=== PATIENT | female | born 1940 | race Caucasian/White ===

== ENCOUNTER → 2016-08-17 | Outpatient (CLI) | payer MEDICARE, MEDICAID ==
[~2016-08-17] MED LIST: /CELE20CA PO; /ESOM40CA OR; /ROPI1TA OR; ALBU2TAB INH; ASPI325T OR; BACIDCA PO; BACITAB PO; BACITAB3 PO; CALC25TA PO; CALCCHW12 OR; CALCCHW19 PO; CARA1TAB2 PO; CHOL4PKT PO; CIPR500T4 PO; COLA100C PO; COLA50CA3 PO; COLACE PO; DEXLANSOPRAZOLE PO; DIARRHEA MED PO; DOCU10ELUD FT; DRISDOL PO; E-Z-GAS II EFFERVESCENT PACKET (SODIUM BICARB./CITRIC ACID/SIMETHICONE) As Ordered ONE; E-Z-HD 98% w/w 340GM SUSP BTL As Ordered ONE; E-Z-PAQUE 96% w/w SUSP 176GM BTL As Ordered ONE; FERR150C PO; FERR32TA PO; FLAG500T PO; FLON0.05; GABA600T3 OR; GABAPOW41 PO; IMIT50TA PO; IMOD2TAB14 PO; LOPE-3 PO; METAMUCIL PO; METAPKT PO; METO10TA2 OR; MIRA255PW PO; MOM30SS PO; MULTLIQ7 PO; MV-OCAP PO; NEUR100C OR; NEUR300C PO; NIFEREX PO; OXYC5TAB2 PO; PERC5TAB6 PO; PERC5TAB8 OR; PERCOCET PO; PHEN100C PO; PRED1SUS6 OS; PROA1AER INH; PROAAER INH; PROPOFOL 200 MG/20 ML VIAL As Ordered ONE; PROT20TA11 PO; RECL5INJ2 IV; REGLAN PO; SALI0.653; SENN8.6C PO; SENN8.6T76 PO; SENNSYP PO; SING10TA32 PO; SINGULAIR PO; SINGULAR PO; SYNT112T2 PO; SYNT75TA OR; SYNTHROID PO; TIZA2CAP3 PO; TYLE325T5 PO; TYLE650T30 PO; VESI10TA PO; VICO5TAB PO; VITA200016 PO; VITA500C10 PO; ZOCOR PO; [UNRECOGNIZED DRUG - CODE] OD; [UNRECOGNIZED DRUG - CODE] OS; [UNRECOGNIZED DRUG - OTHER] PO; [UNRECOGNIZED DRUG - OTHER] PO; metamucil PO
--- NOTE | 2016-08-17 17:47 | REP ---
UPPER GI, SINGLE CONTRAST: The procedure was performed under the direct supervision of Dr. Emery. The images were reviewed with Dr. Emery. The cmm inspector film shows no organomegaly or pathological masses. The intestinal gas pattern is nonspecific. There are pedicle screws and arch bars bilaterally from L3 to L5. There are bowel sutures noted in the epigastric region consistent with the patient's history of gastric ulcer repair. There are also bowel sutures noted in the pelvis consistent with the patient's history of colon resection. Liquid barium was given in the erect and prone oblique positions. The oral and pharyngeal stages of deglutition are unremarkable. During esophageal transport there are tertiary waves demonstrated. There is no esophagitis, stricture, mucosal ring or hiatal hernia. Gastroesophageal reflux is not demonstrated on this examination. Within the stomach, there thickened folds within the body of the stomach. A gastric ulcer cannot be ruled out. Recommend endoscopy for further evaluation. There are postsurgical changes representing a likely Billroth II surgery. There is free flow of contrast through the anastomosis. The visualized portion of the proximal small bowel appears normal in course and caliber. IMPRESSION: 1. Esophageal dysmotility. 2. There are thickened folds in the body of the stomach. A gastric ulcer cannot be ruled out. Recommend endoscopy for further evaluation. 4 minutes and 5 seconds of fluoroscopy time was utilized for this procedure. Reviewed by ELYSE Hackett 08/18/2016 04:38 PEdited and Signed by Eusebio Emery MD 08/18/2016 04:51 P
== END ==
LOC: M RAD 08:32
PROVIDERS: ATTEND Surgery
DX: R10.13 Epigastric pain (principal); K21.9 Gastro-esophageal reflux disease without esophagitis

== ENCOUNTER → 2016-08-25 | Outpatient (CLI) | payer MEDICARE, MEDICAID ==
[~2016-08-25] MED LIST changes: +ASPI1TAB PO; +ATOR40TA PO; -E-Z-GAS II EFFERVESCENT PACKET (SODIUM BICARB./CITRIC ACID/SIMETHICONE) As Ordered ONE; -E-Z-HD 98% w/w 340GM SUSP BTL As Ordered ONE; -E-Z-PAQUE 96% w/w SUSP 176GM BTL As Ordered ONE; +GABA-283 PO; +LIDOCAINE 2% INJ 100 MG/5 ML SDV (FOR ANES.) As Ordered ONE; +LR 1,000 ML IV SCH; +METO12TA PO; +MYRB50TA PO; +OXYCO5TA PO; +OYST1TAB8 PO; +PAME25CA PO; +RANI150T PO; +STOO100C PO; +VALS1TAB49 PO; +VITA20008 PO
--- NOTE | 2016-08-25 10:22 | ROOR ---
Patient Name: Bri Ordonez Procedure Date: 08/25/2016 10:07 AM Date of : 1940 Age: 76 Room: [facility] Gender: Female Note Status: Finalized Procedure: Upper GI endoscopy Indications: Epigastric abdominal pain, Dysphagia Providers: Arturo Cid Jr, MD Referring MD: Jim Arizmendi MD Requesting Provider: Medicines: Propofol per Anesthesia Complications: No immediate complications. Procedure: Pre-Anesthesia Assessment: - Prior to the procedure, a History and Physical was performed, and patient medications and allergies were reviewed. The patient is competent. The risks and benefits of the procedure and the sedation options and risks were discussed with the patient. All questions were answered and informed consent was obtained. Patient identification and proposed procedure were verified by the physician and the nurse in the pre-procedure area and in the procedure room. Mental Status Examination: alert and oriented. Airway Examination: normal oropharyngeal airway and neck mobility. Respiratory Examination: clear to auscultation. CV Examination: normal. ASA Grade Assessment: III - A patient with severe systemic disease. After reviewing the risks and benefits, the patient was deemed in satisfactory condition to undergo the procedure. The anesthesia plan was to use moderate sedation / analgesia (conscious sedation). Immediately prior to administration of medications, the patient was re-assessed for adequacy to receive sedatives. The heart rate, respiratory rate, oxygen saturations, blood pressure, adequacy of pulmonary ventilation, and response to care were monitored throughout the procedure. The physical status of the patient was re-assessed after the procedure. The Endoscope was introduced through the mouth, and advanced to the afferent and efferent jejunal loops. The upper GI endoscopy was accomplished without difficulty. The patient tolerated the procedure well. Findings: The upper third of the esophagus, middle third of the esophagus and lower third of the esophagus were normal. A small hiatal hernia was present. Diffuse severe inflammation characterized by congestion (edema), erythema, friability, granularity and mucus was found in the cardia, in the gastric fundus, in the gastric body, on the greater curvature of the stomach and on the lesser curvature of the stomach. Biopsies were taken with a cold forceps for histology. The examined jejunum was normal. The patient had a Billroth II Gastrojejenostomy Impression: - Normal upper third of esophagus, middle third of esophagus and lower third of esophagus. - Small hiatal hernia. - Bile gastritis. Biopsied. - Normal examined jejunum. Recommendation: - Return to my office in 1 week. Arturo Cid MD Arturo Cid Jr, MD 08/25/2016 10:21:43 AM This report has been signed electronically. Number of Addenda: 0 Note Initiated On: 08/25/2016 10:07 AM Estimated Blood Loss: Estimated blood loss: none.
[2016-08-25 10:46] VITALS: BP 117/78
== END ==
LOC: M OPP 09:08
PROVIDERS: ATTEND Surgery
DX: R10.13 Epigastric pain (principal); K29.60 Other gastritis without bleeding; K44.9 Diaphragmatic hernia without obstruction or gangrene; R13.10 Dysphagia, unspecified; E78.5 Hyperlipidemia, unspecified; K21.9 Gastro-esophageal reflux disease without esophagitis; I25.2 Old myocardial infarction; E03.9 Hypothyroidism, unspecified; Z79.82 Long term (current) use of aspirin; Z79.51 Long term (current) use of inhaled steroids; Z88.1 Allergy status to other antibiotic agents; Z88.0 Allergy status to penicillin; Z79.899 Other long term (current) drug therapy

== ENCOUNTER → 2016-09-20 | Outpatient (RCR) | payer MEDICARE, MEDICAID ==
[~2016-09-20] MED LIST changes: -LIDOCAINE 2% INJ 100 MG/5 ML SDV (FOR ANES.) As Ordered ONE; -LR 1,000 ML IV SCH; -PROPOFOL 200 MG/20 ML VIAL As Ordered ONE
== END ==
LOC: M PT 09:02
PROVIDERS: ATTEND Physician Assistant Surgical
DX: Z51.89 Encounter for other specified aftercare (principal); M16.12 Unilateral primary osteoarthritis, left hip
CPT/HCPCS: 97162; G8978; G8979

== ENCOUNTER → 2016-09-30 | Outpatient (CLI) | payer MEDICARE, MEDICAID ==
[2016-09-30 08:03] LABS: MEAN CORPUSCULAR HEMOGLOBIN 32.1 pg (27.0-33.0); MEAN CORPUSCULAR HGB CONC 32.4 g/dl (32.0-36.5); RED CELL DISTRIBUTION WIDTH 12.7 % (11.5-14.5); RETIC HEMOGLOBIN CONTENT CHr 32.8 PG (24-36); RETICULOCYTE % ADVIA2120 2.2 % (0.5-1.5); WHITE BLOOD COUNT 3.9 K/mm3 (4.0-10.0)
[2016-09-30 08:51] LABS: ALBUMIN 3.5 GM/DL (3.2-5.2); ALKALINE PHOSPHATASE 194 U/L (45-117); ALT/SGPT 28 U/L (12-78); ANION GAP 8 MEQ/L (8-16); AST/SGOT 22 U/L (15-37); BILIRUBIN,TOTAL 0.3 MG/DL (0.2-1.0); BLOOD UREA NITROGEN 11 MG/DL (7-18); CALCIUM LEVEL 8.6 MG/DL (8.8-10.2); CARBON DIOXIDE LEVEL 30 MEQ/L (21-32); CHLORIDE LEVEL 108 MEQ/L (98-107); CHOLESTEROL LEVEL 133 MG/DL (<200); CREATININE FOR GFR 0.76 MG/DL (0.55-1.02); FERRITIN 10 NG/ML (8-252); GLOMERULAR FILTRATION RATE > 60.0 (>39); GLUCOSE, FASTING 92 MG/DL (83-110); PERCENT SATURATION 20.7 % (13.2-37.4); POTASSIUM SERUM 4.3 MEQ/L (3.5-5.1); SODIUM LEVEL 146 MEQ/L (136-145); TOTAL IRON BINDING CAPACITY 328 UG/DL (250-450); TOTAL PROTEIN 6.2 GM/DL (6.4-8.2); TRIGLYCERIDES LEVEL 139 MG/DL (<150)
== END ==
LOC: M LAB 07:13
PROVIDERS: ATTEND Family Medicine
DX: R25.2 Cramp and spasm (principal); D50.0 Iron deficiency anemia secondary to blood loss (chronic); E03.9 Hypothyroidism, unspecified; E78.2 Mixed hyperlipidemia

== ENCOUNTER → 2016-10-11 | Outpatient (REF) | payer MEDICARE, MEDICAID ==
[~2016-10-11] MED LIST changes: -COLA100C PO; +COLA100C3 PO
== END ==
LOC: M SMT 12:55
PROVIDERS: ATTEND Urology
DX: N39.0 Urinary tract infection, site not specified (principal)

== ENCOUNTER 2016-10-12 08:29 | Outpatient (RCR) | payer MEDICARE, MEDICAID ==
[~2016-10-12 08:29] MED LIST changes: +COLA100C PO; -COLA100C3 PO
== END 2016-10-13 12:45 | disposition home or self-care (01) ==
LOC: M PT 08:29
PROVIDERS: ATTEND Physician Assistant Surgical
DX: Z51.89 Encounter for other specified aftercare (principal); M19.90 Unspecified osteoarthritis, unspecified site
CPT/HCPCS: 97110; 97140; G8978; G8979; G8980

== ENCOUNTER 2016-11-01 16:47 | Emergency (ER) | payer MEDICARE, MEDICAID ==
[~2016-11-01] VITALS: Ht 154.9 cm; Wt 55.8 kg
[~2016-11-01 16:47] MED LIST changes: -COLA100C PO; +COLA100C3 PO
--- NOTE | 2016-11-01 18:39 | REP ---
Portable chest, single AP view, the patient upright: Comparisons are the portable chest dated 07/19/2069, PA and lateral views of the chest dated 10/16/2015. The lung henry are clear. Cardiac size is normal. The inga and mediastinum are unchanged. There is thoracic scoliosis convex left at the thoracolumbar junction, unchanged. There is a stabilization plate in the cervical spine, unchanged. There is surgical fusion of the lumbar spine, unchanged. Impression: There are no acute cardiopulmonary findings. Signed by Naveed Segura MD 11/01/2016 06:30 P
[2016-11-01 18:44] LABS: BASO % 0.4 % (0.0-1.0); EOS # 0.2 K/mm3 (0.0-0.50); EOS % 2.1 % (0.0-3.0); LARGE UNSTAINED CELL # 0.1 K/mm3 (0.0-0.4); LARGE UNSTAINED CELL % 1.9 % (0.0-4.0); LYMPH # 1.3 K/mm3 (1.5-4.5); LYMPH % 17.6 % (24.0-44.0); MEAN CORPUSCULAR HGB CONC 32.5 g/dl (32.0-36.5); MEAN CORPUSCULAR VOLUME 98.6 fl (80.0-96.0); MONO # 0.4 K/mm3 (0.0-0.8); MONO % 5.7 % (0.0-5.0); NEUTROPHILS # 5.4 K/mm3 (1.8-7.7); NEUTROPHILS % 72.2 % (36.0-66.0); PLATELET COUNT, AUTOMATED 207 k/mm3 (150-450); RED CELL DISTRIBUTION WIDTH 12.9 % (11.5-14.5); WHITE BLOOD COUNT 7.5 K/mm3 (4.0-10.0)
[2016-11-01] MEDS ORDERED: ASPIRIN 81 MG CHEW TABLET PO ONE (18:45)
[2016-11-01 19:09] LABS: ANION GAP 6 MEQ/L (8-16); BLOOD UREA NITROGEN 18 MG/DL (7-18); CALCIUM LEVEL 8.8 MG/DL (8.8-10.2); CARBON DIOXIDE LEVEL 30 MEQ/L (21-32); CHLORIDE LEVEL 104 MEQ/L (98-107); CREATININE FOR GFR 0.73 MG/DL (0.55-1.02); GLOMERULAR FILTRATION RATE > 60.0 (>39); GLUCOSE, FASTING 102 MG/DL (83-110); POTASSIUM SERUM 4.2 MEQ/L (3.5-5.1); SODIUM LEVEL 140 MEQ/L (136-145)
[2016-11-01] MEDS ORDERED: ISOVUE-370 76% 100ML VIAL (Q9967) As Ordered ONE (19:14)
--- NOTE | 2016-11-01 20:00 | REPUSA ---
CT angiogram of the chest Clinical statement: Chest pain and shortness of breath. Technique: Multiple axial CT images were obtained from the thoracic inlet through the upper abdomen a fter a bolus administration of nonionic intravenous contrast. Coronal and sagittal reconstructions we re also obtained. No comparison is available. Findings: The pulmonary arteries are well-opacified with contrast, with no intraluminal filling defec ts to suggest embolism. The thoracic aorta is unremarkable. Thyroid gland is within normal limits. Th ere is no thoracic lymphadenopathy. There are no pericardial or pleural effusions. The lungs are markus r. Limited imaging of the upper abdomen demonstrate a large simple left renal cyst. There are no susp icious osseous lesions. Impression: Unremarkable CT examination of the chest. No evidence of pulmonary embolism.
[2016-11-01 23:41] VITALS: BP 122/63
--- NOTE | 2016-11-02 14:03 | ECGEPIP ---
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
--- NOTE | 2016-11-02 14:03 | ECGEPIP ---
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
== END 2016-11-02 00:16 | disposition home or self-care (01) ==
LOC: EDBD 16:47 → M ED 19:21
DX: R07.9 Chest pain, unspecified (principal); R06.02 Shortness of breath; I25.2 Old myocardial infarction; K21.9 Gastro-esophageal reflux disease without esophagitis; M81.0 Age-related osteoporosis without current pathological fracture
CPT/HCPCS: 36415; 71010; 71275; 80048; 82550; 82553; 83880; 84484; 85025; 93005; 93041; 94760; 99285; Q9967

== ENCOUNTER → 2016-11-10 | Outpatient (REF) | payer MEDICARE | LOC: M SMT 16:54 | PROVIDERS: ATTEND Urology | DX: R30.0 Dysuria (principal) ==

== ENCOUNTER → 2016-11-11 | Outpatient (REF) | payer MEDICARE | LOC: M SMT 16:50 | PROVIDERS: ATTEND Urology | DX: N39.0 Urinary tract infection, site not specified (principal) ==

== ENCOUNTER 2016-11-17 10:27 | Outpatient (RCR) | payer MEDICARE | END 2016-11-20 | LOC: M PT 10:27 | PROVIDERS: ATTEND Orthopaedic Surgery | DX: M17.12 Unilateral primary osteoarthritis, left knee (principal) | CPT/HCPCS: 97110; 97140; 97162; G8978; G8979 ==

== ENCOUNTER 2016-11-29 10:45 | Outpatient (RCR) | payer MEDICARE | END 2016-11-29 14:46 | disposition home or self-care (01) | LOC: M PT 10:45 | PROVIDERS: ATTEND Orthopaedic Surgery | DX: Z51.89 Encounter for other specified aftercare (principal); M16.12 Unilateral primary osteoarthritis, left hip | CPT/HCPCS: 97110; G8978; G8979; G8980 ==

== ENCOUNTER → 2016-12-01 | Outpatient (REF) | payer MEDICARE, MEDICAID ==
[2016-12-01 13:47] LABS: BASO % 0.4 % (0.0-1.0); EOS # 0.2 K/mm3 (0.0-0.50); EOS % 2.4 % (0.0-3.0); LARGE UNSTAINED CELL # 0.2 K/mm3 (0.0-0.4); LARGE UNSTAINED CELL % 2.4 % (0.0-4.0); LYMPH # 1.3 K/mm3 (1.5-4.5); LYMPH % 19.6 % (24.0-44.0); MEAN CORPUSCULAR HEMOGLOBIN 33.3 pg (27.0-33.0); MEAN CORPUSCULAR HGB CONC 32.6 g/dl (32.0-36.5); MEAN CORPUSCULAR VOLUME 101.9 fl (80.0-96.0); MONO # 0.5 K/mm3 (0.0-0.8); MONO % 7.5 % (0.0-5.0); NEUTROPHILS # 4.4 K/mm3 (1.8-7.7); NEUTROPHILS % 67.7 % (36.0-66.0); PLATELET COUNT, AUTOMATED 211 k/mm3 (150-450); RED CELL DISTRIBUTION WIDTH 13.2 % (11.5-14.5); WHITE BLOOD COUNT 6.6 K/mm3 (4.0-10.0)
[2016-12-01 13:54] LABS: ANION GAP 8 MEQ/L (8-16); BLOOD UREA NITROGEN 16 MG/DL (7-18); CALCIUM LEVEL 8.2 MG/DL (8.8-10.2); CARBON DIOXIDE LEVEL 26 MEQ/L (21-32); CHLORIDE LEVEL 109 MEQ/L (98-107); CREATININE FOR GFR 0.77 MG/DL (0.55-1.02); GLOMERULAR FILTRATION RATE > 60.0 (>39); GLUCOSE, FASTING 114 MG/DL (83-110); SODIUM LEVEL 143 MEQ/L (136-145)
[2016-12-01 14:37] LABS: ERYTHROCYTE SEDIMENTATION RATE 8 mm/hr (0-30)
== END ==
LOC: M SFHCPLAZ 10:53
PROVIDERS: ATTEND Nurse Practitioner Family
DX: R51 Headache (principal)
CPT/HCPCS: 80048; 85025; 85652; 86140; G0463

== ENCOUNTER 2016-12-29 01:16 | Emergency (ER) | payer MEDICARE, MEDICAID ==
[~2016-12-29] VITALS: Ht 152.4 cm; Wt 59.0 kg
[2016-12-29 01:31] VITALS: BP 118/66
[2016-12-29] MEDS ORDERED: ONDANSETRON 4MG/2ML VIAL (J2405) IV ONE (03:00)
[2016-12-29] MEDS ORDERED: NS 1,000 ML IV ONE (03:00)
[2016-12-29 03:25] LABS: BASO % 0.2 % (0.0-1.0); EOS # 0.1 K/mm3 (0.0-0.50); EOS % 0.6 % (0.0-3.0); LARGE UNSTAINED CELL # 0.1 K/mm3 (0.0-0.4); LARGE UNSTAINED CELL % 0.8 % (0.0-4.0); LYMPH # 0.6 K/mm3 (1.5-4.5); LYMPH % 5.6 % (24.0-44.0); MEAN CORPUSCULAR HEMOGLOBIN 32.3 pg (27.0-33.0); MEAN CORPUSCULAR HGB CONC 32.9 g/dl (32.0-36.5); MEAN CORPUSCULAR VOLUME 98.4 fl (80.0-96.0); MONO # 0.5 K/mm3 (0.0-0.8); MONO % 5.3 % (0.0-5.0); NEUTROPHILS # 8.7 K/mm3 (1.8-7.7); NEUTROPHILS % 87.5 % (36.0-66.0); PLATELET COUNT, AUTOMATED 214 k/mm3 (150-450); RED CELL DISTRIBUTION WIDTH 13.2 % (11.5-14.5)
[2016-12-29] MEDS: MORPHINE 2 MG/ML 1ML SYRINGE IV PRN ×4 (03:29→05:30)
[2016-12-29 03:58] LABS: ALBUMIN 3.4 GM/DL (3.2-5.2); ALBUMIN/GLOBULIN RATIO 1.06 (1.00-1.93); ALKALINE PHOSPHATASE 194 U/L (45-117); ALT/SGPT 40 U/L (12-78); ANION GAP 7 MEQ/L (8-16); AST/SGOT 30 U/L (15-37); BILIRUBIN,DIRECT < 0.1 MG/DL (0.0-0.2); BILIRUBIN,TOTAL 0.3 MG/DL (0.2-1.0); BLOOD UREA NITROGEN 15 MG/DL (7-18); CALCIUM LEVEL 8.2 MG/DL (8.8-10.2); CARBON DIOXIDE LEVEL 27 MEQ/L (21-32); CHLORIDE LEVEL 109 MEQ/L (98-107); CREATININE FOR GFR 0.84 MG/DL (0.55-1.02); GLOMERULAR FILTRATION RATE > 60.0 (>39); GLUCOSE, FASTING 118 MG/DL (83-110); POTASSIUM SERUM 3.8 MEQ/L (3.5-5.1); SODIUM LEVEL 143 MEQ/L (136-145); TOTAL PROTEIN 6.6 GM/DL (6.4-8.2)
[2016-12-29] MEDS ORDERED: ISOVUE-370 76% 100ML VIAL (Q9967) As Ordered ONE (04:30)
[2016-12-29] MEDS ORDERED: GI COCKTAIL 50ML BTL(HYOSCYAMINE/MAALOX/LIDOCAINE VISCOUS)(1:3:1) PO ONE (04:45)
--- NOTE | 2016-12-29 05:08 | REP ---
Clinical: Abdominal pain. Technique: Axial contrast enhanced images from the lung bases to the pubic symphysis using 100 ml Isovue 370 intravenous contrast material with coronal and sagittal re-formations. Comparison: 07/01/2016, 06/18/2014. Findings: Lung bases demonstrate chronic in age-related interstitial changes and minimal posterior basilar dependent changes. Visualized portions of the heart and pericardium suggest mild cardiomegaly. Liver, spleen, pancreas, and bilateral adrenal glands are normal. Kidneys demonstrate stable bilateral cysts measuring up to 1.1 cm in the mid pole cortex of the right kidney and 7.4 cm in the posterior upper pole left kidney. No associated hydroureteronephrosis or nephrolithiasis. The enteric system demonstrates diffuse diverticulosis without evidence for acute obstruction or inflammatory process. However mild enteritis cannot be excluded along with few mildly prominent central mesenteric lymph nodes measuring up to 12 mm. There is evidence for partial sigmoid resection within the pelvis along with evidence for prior cholecystectomy and hysterectomy. The bladder is unremarkable. No ascites. No retroperitoneal adenopathy. Vasculature demonstrates atherosclerotic changes without aneurysm or dissection. Musculoskeletal structures demonstrate postsurgical changes involving the lumbar spine. Impression: 1. Very subtle enhancement to the small bowel with few prominent central mesenteric lymph nodes may reflect enteritis. 2. Diverticulosis without acute diverticulitis. 3. Stable renal cysts including 7.4 cm left renal cyst. Signed by Swapnil Ayala MD 12/29/2016 04:59 A
[2016-12-29] MEDS ORDERED: PANTOPRAZOLE 40MG INJ (PROTONIX) (C9113) IV ONE (05:30)
== END 2016-12-29 06:28 | disposition home or self-care (01) ==
LOC: EDBD 01:16 → M ED 03:05
DX: K21.9 Gastro-esophageal reflux disease without esophagitis (principal); K57.90 Diverticulosis of intestine, part unspecified, without perforation or abscess without bleeding; N28.1 Cyst of kidney, acquired; I51.9 Heart disease, unspecified; Z79.82 Long term (current) use of aspirin; Z79.899 Other long term (current) drug therapy; Z88.2 Allergy status to sulfonamides; Z88.1 Allergy status to other antibiotic agents; Z88.8 Allergy status to other drugs, medicaments and biological substances; Z91.09 Other allergy status, other than to drugs and biological substances
CPT/HCPCS: 74177; 80048; 80076; 82550; 82553; 83690; 84484; 85025; 93041; 96374; 96375; 99284; C9113; J2405; Q9967

== ENCOUNTER → 2017-01-04 | Outpatient (REF) | payer MEDICARE, MEDICAID ==
[~2017-01-04] MED LIST changes: +ALLE180T33 PO; +ASTE0.15; +ATOR1TAB21 PO; -ATOR40TA PO; +ATOR40TA75 PO; -BACITAB3 PO; +BETA2500 PO; +CARA1TAB6 PO; +CEFD300CAP FT; +CLAR1TAB2 PO; -COLA100C3 PO; +COLA100C5 PO; +DILA100C PO; +FIOR1CAP PO; +FLON1SPR; +GUAI100S7 PO; +LEVO500T3; +LEVOTAB10 PO; -METO12TA PO; +METO1TAB87 PO; +MUCI600T37 PO; +MULT1TAB10 PO; +NASA1SPR; +OMEP40CA2 PO; +PANT40TA2 PO; +PERC5TAB12 PO; -PERC5TAB6 PO; +PRED20TA; -PROA1AER INH; +PROAAER10 INH; -VESI10TA PO; +VESI10TA2 PO
[2017-01-04 12:19] LABS: ANION GAP 10 MEQ/L (8-16); BLOOD UREA NITROGEN 14 MG/DL (7-18); CARBON DIOXIDE LEVEL 27 MEQ/L (21-32); CHLORIDE LEVEL 103 MEQ/L (98-107); GLOMERULAR FILTRATION RATE > 60.0 (>39); GLUCOSE, FASTING 86 MG/DL (83-110); POTASSIUM SERUM 4.5 MEQ/L (3.5-5.1); SODIUM LEVEL 140 MEQ/L (136-145)
[2017-01-04 12:24] LABS: MEAN CORPUSCULAR HEMOGLOBIN 32.9 pg (27.0-33.0); MEAN CORPUSCULAR HGB CONC 32.7 g/dl (32.0-36.5); MEAN CORPUSCULAR VOLUME 100.6 fl (80.0-96.0); RED CELL DISTRIBUTION WIDTH 12.8 % (11.5-14.5); WHITE BLOOD COUNT 6.1 K/mm3 (4.0-10.0)
== END ==
LOC: M SFHCPLAZ 08:04
PROVIDERS: ATTEND Family Medicine
DX: D50.0 Iron deficiency anemia secondary to blood loss (chronic) (principal); I25.2 Old myocardial infarction
CPT/HCPCS: 36415; 80048; 85027; G0463

== ENCOUNTER 2017-01-05 03:35 | Emergency (ER) | payer MEDICARE, MEDICAID ==
[~2017-01-05] VITALS: Ht 152.4 cm; Wt 58.0 kg
[~2017-01-05 03:35] MED LIST changes: -ALLE180T33 PO; -ASTE0.15; -ATOR1TAB21 PO; +ATOR40TA PO; -ATOR40TA75 PO; +BACITAB3 PO; -BETA2500 PO; -CARA1TAB6 PO; -CEFD300CAP FT; -CLAR1TAB2 PO; +COLA100C3 PO; -COLA100C5 PO; -DILA100C PO; -FIOR1CAP PO; -FLON1SPR; -GUAI100S7 PO; -LEVO500T3; -LEVOTAB10 PO; +METO12TA PO; -METO1TAB87 PO; -MUCI600T37 PO; -MULT1TAB10 PO; -NASA1SPR; -OMEP40CA2 PO; -PANT40TA2 PO; -PERC5TAB12 PO; +PERC5TAB6 PO; -PRED20TA; +PROA1AER INH; -PROAAER10 INH; +VESI10TA PO; -VESI10TA2 PO
[2017-01-05] MEDS ORDERED: GI COCKTAIL 50ML BTL(HYOSCYAMINE/MAALOX/LIDOCAINE VISCOUS)(1:3:1) PO ONE (05:00)
[2017-01-05] MEDS ORDERED: IPRATROPIUM 0.5MG/ALBUTEROL 2.5MG INH SOL UD 3ML (DUONEB)(J7620) NEB SCH (05:15)
[2017-01-05] MEDS ORDERED: dexameTHASONE 20 MG/5 ML VIAL (J1100) IV ONE (05:15)
[2017-01-05 05:51] VITALS: BP 111/66
--- NOTE | 2017-01-05 09:30 | ECGEPIP ---
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
== END 2017-01-05 06:05 | disposition home or self-care (01) ==
LOC: M ED 05:26
DX: K21.9 Gastro-esophageal reflux disease without esophagitis (principal); E03.9 Hypothyroidism, unspecified; M54.9 Dorsalgia, unspecified; D50.9 Iron deficiency anemia, unspecified; Z79.82 Long term (current) use of aspirin; Z79.899 Other long term (current) drug therapy; Z88.1 Allergy status to other antibiotic agents; Z88.2 Allergy status to sulfonamides; Z88.8 Allergy status to other drugs, medicaments and biological substances; Z91.89 Other specified personal risk factors, not elsewhere classified

== ENCOUNTER → 2017-01-17 | Outpatient (CLI) | payer MEDICARE, MEDICAID ==
[~2017-01-17] MED LIST changes: +ALLE180T33 PO; +ASTE0.15; +ATOR1TAB21 PO; -ATOR40TA PO; +ATOR40TA75 PO; -BACITAB3 PO; +BETA2500 PO; +CARA1TAB6 PO; +CEFD300CAP FT; +CLAR1TAB2 PO; -COLA100C3 PO; +COLA100C5 PO; +DILA100C PO; +FIOR1CAP PO; +FLON1SPR; +GUAI100S7 PO; +LEVO500T3; +LEVOTAB10 PO; -METO12TA PO; +METO1TAB87 PO; +MUCI600T37 PO; +MULT1TAB10 PO; +NASA1SPR; +OMEP40CA2 PO; +PANT40TA2 PO; +PERC5TAB12 PO; -PERC5TAB6 PO; +PRED20TA; -PROA1AER INH; +PROAAER10 INH; -VESI10TA PO; +VESI10TA2 PO
[2017-01-17 08:24] LABS: BASO % 0.6 % (0.0-1.0); EOS # 0.1 K/mm3 (0.0-0.50); EOS % 2.4 % (0.0-3.0); LARGE UNSTAINED CELL # 0.1 K/mm3 (0.0-0.4); LARGE UNSTAINED CELL % 2.3 % (0.0-4.0); LYMPH # 1.3 K/mm3 (1.5-4.5); LYMPH % 22.6 % (24.0-44.0); MEAN CORPUSCULAR HEMOGLOBIN 32.4 pg (27.0-33.0); MEAN CORPUSCULAR HGB CONC 32.7 g/dl (32.0-36.5); MONO # 0.4 K/mm3 (0.0-0.8); MONO % 7.3 % (0.0-5.0); NEUTROPHILS # 3.4 K/mm3 (1.8-7.7); NEUTROPHILS % 64.8 % (36.0-66.0); PLATELET COUNT, AUTOMATED 231 k/mm3 (150-450); WHITE BLOOD COUNT 5.2 K/mm3 (4.0-10.0)
[2017-01-17 08:28] LABS: URIC ACID 3.6 MG/DL (2.6-6.0)
[2017-01-17 09:43] LABS: ERYTHROCYTE SEDIMENTATION RATE 6 mm/hr (0-30)
[2017-01-22 00:06] LABS: Lyme Disease IgG/IgM Antibodie <0.91 ISR (0.00-0.90); Lyme Disease IgM Ab Quantitati <0.80 index (0.00-0.79)
== END ==
LOC: M LAB 07:22
PROVIDERS: ATTEND Physician Assistant Surgical
DX: M79.674 Pain in right toe(s) (principal)

== ENCOUNTER → 2017-01-26 | Outpatient (REF) | payer MEDICARE, MEDICAID ==
[2017-02-01 00:07] LABS: O+P EXAM Final report (.)
== END ==
LOC: M SFHCLACO 14:48
PROVIDERS: ATTEND Physician Assistant
DX: R19.5 Other fecal abnormalities (principal); Z86.19 Personal history of other infectious and parasitic diseases

== ENCOUNTER → 2017-02-16 | Outpatient (CLI) | payer MEDICARE, MEDICAID ==
[~2017-02-16] VITALS: Ht 152.4 cm; Wt 54.4 kg
[~2017-02-16] MED LIST changes: +NS 1,000 ML IV ONE; +PROPOFOL 200 MG/20 ML VIAL As Ordered ONE
--- NOTE | 2017-02-16 12:47 | ROOR ---
Patient Name: Bri Ordonez Procedure Date: 02/16/2017 12:27 PM Date of : 1940 Age: 76 Room: [facility] Gender: Female Note Status: Finalized Procedure: Colonoscopy Indications: Chronic diarrhea Providers: Arturo Cid Jr, MD Referring MD: Jim Arizmendi MD Requesting Provider: Medicines: Propofol per Anesthesia Complications: No immediate complications. Procedure: Pre-Anesthesia Assessment: - Prior to the procedure, a History and Physical was performed, and patient medications and allergies were reviewed. The patient is competent. The risks and benefits of the procedure and the sedation options and risks were discussed with the patient. All questions were answered and informed consent was obtained. Patient identification and proposed procedure were verified by the physician and the nurse in the pre-procedure area and in the procedure room. Mental Status Examination: alert and oriented. Airway Examination: normal oropharyngeal airway and neck mobility. Respiratory Examination: clear to auscultation. CV Examination: normal. ASA Grade Assessment: II - A patient with mild systemic disease. After reviewing the risks and benefits, the patient was deemed in satisfactory condition to undergo the procedure. The anesthesia plan was to use moderate sedation / analgesia (conscious sedation). Immediately prior to administration of medications, the patient was re-assessed for adequacy to receive sedatives. The heart rate, respiratory rate, oxygen saturations, blood pressure, adequacy of pulmonary ventilation, and response to care were monitored throughout the procedure. The physical status of the patient was re-assessed after the procedure. The Colonoscope was introduced through the anus and advanced to the cecum, identified by appendiceal orifice and ileocecal valve. The colonoscopy was performed without difficulty. The patient tolerated the procedure well. The quality of the bowel preparation was adequate and good. Findings: The perianal exam findings include non-thrombosed external hemorrhoids, non-thrombosed internal hemorrhoids, internal hemorrhoids that prolapse with straining, but spontaneously regress to the resting position (Grade II) and internal hemorrhoids that prolapse with straining, but require manual replacement into the anal canal (Grade III). Multiple small and large-mouthed diverticula were found in the sigmoid colon. A few small and large-mouthed diverticula were found in the descending colon, transverse colon and ascending colon. The rectum, recto-sigmoid colon, cecum, appendiceal orifice and ileocecal valve appeared normal. Biopsies for histology were taken with a cold forceps from the right colon, transverse colon, descending colon and sigmoid colon for evaluation of microscopic colitis. Impression: - Non-thrombosed external hemorrhoids, non-thrombosed internal hemorrhoids, internal hemorrhoids that prolapse with straining, but spontaneously regress to the resting position (Grade II) and internal hemorrhoids that prolapse with straining, but require manual replacement into the anal canal (Grade III) found on perianal exam. - Diverticulosis in the sigmoid colon. - Diverticulosis in the descending colon, in the transverse colon and in the ascending colon. - The rectum, recto-sigmoid colon, cecum, appendiceal orifice and ileocecal valve are normal. Biopsied. Recommendation: - Discharge patient to home (ambulatory). - Return to my office in 3 weeks. Arturo Cid MD Arturo Cid Jr, MD 02/16/2017 12:47:18 PM This report has been signed electronically. Number of Addenda: 0 Note Initiated On: 02/16/2017 12:27 PM Estimated Blood Loss: Estimated blood loss: none.
[2017-02-16 13:10] VITALS: BP 139/93
== END | disposition home or self-care (01) ==
LOC: M OPP 11:38
PROVIDERS: ATTEND Surgery
DX: R19.7 Diarrhea, unspecified (principal); K64.2 Third degree hemorrhoids; K64.1 Second degree hemorrhoids; K64.4 Residual hemorrhoidal skin tags; K57.30 Diverticulosis of large intestine without perforation or abscess without bleeding; I25.2 Old myocardial infarction; E03.9 Hypothyroidism, unspecified; E78.00 Pure hypercholesterolemia, unspecified; K21.9 Gastro-esophageal reflux disease without esophagitis; M19.90 Unspecified osteoarthritis, unspecified site; R12 Heartburn; K29.70 Gastritis, unspecified, without bleeding; G89.4 Chronic pain syndrome; M81.0 Age-related osteoporosis without current pathological fracture; M54.9 Dorsalgia, unspecified; J45.909 Unspecified asthma, uncomplicated; M25.60 Stiffness of unspecified joint, not elsewhere classified; Z86.73 Personal history of transient ischemic attack (TIA), and cerebral infarction without residual deficits; J44.9 Chronic obstructive pulmonary disease, unspecified; Z78.0 Asymptomatic menopausal state; R32 Unspecified urinary incontinence; I34.8 Other nonrheumatic mitral valve disorders; Z87.891 Personal history of nicotine dependence; Z88.8 Allergy status to other drugs, medicaments and biological substances; Z88.1 Allergy status to other antibiotic agents; Z88.2 Allergy status to sulfonamides; Z91.048 Other nonmedicinal substance allergy status; Z79.82 Long term (current) use of aspirin; Z79.899 Other long term (current) drug therapy

== ENCOUNTER 2017-02-21 12:15 | Emergency (ER) | payer MEDICARE, MEDICAID ==
[~2017-02-21 12:15] MED LIST changes: -ALLE180T33 PO; -CEFD300CAP FT; -CLAR1TAB2 PO; -FIOR1CAP PO; -GUAI100S7 PO; -LEVO500T3; -LEVOTAB10 PO; -MUCI600T37 PO; -NASA1SPR; -NS 1,000 ML IV ONE; -PANT40TA2 PO; -PRED20TA; -PROPOFOL 200 MG/20 ML VIAL As Ordered ONE
[2017-02-21] MEDS ORDERED: PROAAER10 INH (12:47)
[2017-02-21] MEDS ORDERED: ASPIRIN 81 MG CHEW TABLET PO ONE (13:00)
[2017-02-21 13:12] LABS: BASO % 0.4 % (0.0-1.0); EOS # 0.2 K/mm3 (0.0-0.50); EOS % 2.9 % (0.0-3.0); LARGE UNSTAINED CELL # 0.1 K/mm3 (0.0-0.4); LARGE UNSTAINED CELL % 1.8 % (0.0-4.0); LYMPH # 1.2 K/mm3 (1.5-4.5); LYMPH % 21.7 % (24.0-44.0); MEAN CORPUSCULAR HEMOGLOBIN 32.9 pg (27.0-33.0); MEAN CORPUSCULAR VOLUME 99.6 fl (80.0-96.0); MONO # 0.4 K/mm3 (0.0-0.8); MONO % 7.5 % (0.0-5.0); NEUTROPHILS # 3.5 K/mm3 (1.8-7.7); NEUTROPHILS % 65.8 % (36.0-66.0); PLATELET COUNT, AUTOMATED 209 k/mm3 (150-450); WHITE BLOOD COUNT 5.2 K/mm3 (4.0-10.0)
[2017-02-21 13:19] LABS: ALBUMIN 3.1 GM/DL (3.2-5.2); ALBUMIN/GLOBULIN RATIO 1.03 (1.00-1.93); ALKALINE PHOSPHATASE 168 U/L (45-117); ALT/SGPT 29 U/L (12-78); ANION GAP 9 MEQ/L (8-16); AST/SGOT 26 U/L (15-37); BILIRUBIN,DIRECT < 0.1 MG/DL (0.0-0.2); BILIRUBIN,TOTAL 0.1 MG/DL (0.2-1.0); BLOOD UREA NITROGEN 9 MG/DL (7-18); CALCIUM LEVEL 8.6 MG/DL (8.8-10.2); CARBON DIOXIDE LEVEL 27 MEQ/L (21-32); CHLORIDE LEVEL 109 MEQ/L (98-107); CREATININE FOR GFR 0.71 MG/DL (0.55-1.02); GLOMERULAR FILTRATION RATE > 60.0 (>39); GLUCOSE, FASTING 93 MG/DL (83-110); POTASSIUM SERUM 3.9 MEQ/L (3.5-5.1); SODIUM LEVEL 145 MEQ/L (136-145); TOTAL PROTEIN 6.1 GM/DL (6.4-8.2)
--- NOTE | 2017-02-21 14:41 | REP ---
CHEST PA AND LATERAL: 02/21/2017 COMPARISON: CTA chest and portable chest 11/01/2016, 07/19/2016. CLINICAL HISTORY: Chest pain. Lungs are adequately inflated. CP angles sharply defined. Some basilar fibrotic changes and apical pleuroparenchymal scarring on the right. S- shaped thoracolumbar scoliosis convex to the right in the upper thoracic spine, convex to the left at the thoracolumbar junction. Heart size is borderline. There is a tortuous ectatic aorta unchanged. Airway intact. No mediastinal or hilar mass. No dense consolidation or definite effusion. Bones demineralized. There are pedicle screws and arch bars in the lower lumbar spine. Right upper quadrant clips from cholecystectomy. IMPRESSION: 1. No gross cardiomegaly, edema, effusion or definite infiltrate. Some minor fibrotic changes are seen. Tortuous ectatic aorta unchanged. Bones demineralized. 2. S-shaped thoracolumbar scoliosis and prior cervical fusion with plate screw fixation and posterior lumbar fusion with pedicle screws. Signed by Dwayne Alvarez MD 02/21/2017 07:04 P
[2017-02-21 14:55] VITALS: BP 133/76
--- NOTE | 2017-02-22 13:56 | ECGEPIP ---
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
[2017-03-24] MEDS ORDERED: PANT40TA2 PO (14:32)
== END 2017-02-21 14:59 | disposition home or self-care (01) ==
LOC: EDBD 12:15 → M ED 12:15
DX: K20.9 Esophagitis, unspecified (principal); I51.9 Heart disease, unspecified; I10 Essential (primary) hypertension; E78.5 Hyperlipidemia, unspecified; E07.9 Disorder of thyroid, unspecified; G89.29 Other chronic pain; Z87.891 Personal history of nicotine dependence; Z79.82 Long term (current) use of aspirin; Z79.899 Other long term (current) drug therapy; Z88.1 Allergy status to other antibiotic agents; Z88.2 Allergy status to sulfonamides; Z88.8 Allergy status to other drugs, medicaments and biological substances; Z91.89 Other specified personal risk factors, not elsewhere classified

== ENCOUNTER → 2017-03-10 | Outpatient (CLI) | payer MEDICARE, MEDICAID ==
[~2017-03-10] MED LIST changes: +ALLE180T33 PO; +CEFD300CAP FT; +CLAR1TAB2 PO; +FIOR1CAP PO; +GUAI100S7 PO; +LEVO500T3; +LEVOTAB10 PO; +MUCI600T37 PO; +NASA1SPR; +PANT40TA2 PO; +PRED20TA
--- NOTE | 2017-03-10 19:38 | REP ---
Left shoulder series: Three views: History: Pain. Findings: The distal clavicle appears to have been resected. This is unchanged from the 08/14/2013 prior study. Glenohumeral and acromioclavicular joints are normally aligned. There is faintly calcific material in the periarticular soft tissues superior to the humeral head consistent with calcific tendonitis or bursitis. There is early glenohumeral osteoarthritic spurring. Some coracoid process spurring is also noted. Impression: Status post resection distal clavicle. Mild glenohumeral osteoarthritis. Periarticular soft tissue calcification. No acute bony abnormality. Signed by Eusebio Emery MD 03/10/2017 07:42 P
== END ==
LOC: M WUC 17:47
PROVIDERS: ATTEND Physician Assistant
DX: M25.512 Pain in left shoulder (principal)

== ENCOUNTER → 2017-03-15 | Outpatient (CLI) | payer MEDICARE, MEDICAID ==
[~2017-03-15] MED LIST changes: +E-Z-GAS II EFFERVESCENT PACKET (SODIUM BICARB./CITRIC ACID/SIMETHICONE) As Ordered ONE; +E-Z-HD 98% w/w 340GM SUSP BTL As Ordered ONE; +E-Z-PAQUE 96% w/w SUSP 176GM BTL As Ordered ONE
--- NOTE | 2017-03-15 21:21 | REP ---
ESOPHAGRAM: The procedure was performed by ELYSE Hernández under the direct supervision of Dr. Hdz. All imaging was reviewed with Dr. Hdz prior to dictation. The patient was able to ingest liquid barium and air in a quantity sufficient to produce a double contrast examination. The oral and pharyngeal stages of deglutition were within normal limits. Esophageal transport was prompt and efficient. There was no evidence of esophagitis, structure, or mucosal ring. A small hiatal hernia was noted. Tertiary contractions were also noted. IMPRESSION: There was a small hiatal hernia. There were also tertiary contractions. Fluoroscopy was 2 minutes and 15 seconds. Reviewed by ELYSE Burton 03/16/2017 11:15 AEdited and Signed by Naveed Hdz MD 03/16/2017 03:09 P
== END ==
LOC: M RAD 07:33
PROVIDERS: ATTEND Internal Medicine Gastroenterology
DX: R13.10 Dysphagia, unspecified (principal)

== ENCOUNTER → 2017-03-15 | Outpatient (CLI) | payer MEDICARE, MEDICAID ==
[~2017-03-15] MED LIST changes: -E-Z-GAS II EFFERVESCENT PACKET (SODIUM BICARB./CITRIC ACID/SIMETHICONE) As Ordered ONE; -E-Z-HD 98% w/w 340GM SUSP BTL As Ordered ONE; -E-Z-PAQUE 96% w/w SUSP 176GM BTL As Ordered ONE
[2017-03-15 08:27] LABS: ALBUMIN 3.4 GM/DL (3.2-5.2); ANION GAP 6 MEQ/L (8-16); BLOOD UREA NITROGEN 13 MG/DL (7-18); CALCIUM LEVEL 8.9 MG/DL (8.8-10.2); CARBON DIOXIDE LEVEL 30 MEQ/L (21-32); CHLORIDE LEVEL 109 MEQ/L (98-107); CREATININE FOR GFR 0.92 MG/DL (0.55-1.02); GLOMERULAR FILTRATION RATE > 60.0 (>39); GLUCOSE, FASTING 89 MG/DL (83-110); PHOSPHORUS LEVEL 3.6 MG/DL (2.5-4.9); POTASSIUM SERUM 4.6 MEQ/L (3.5-5.1); SODIUM LEVEL 145 MEQ/L (136-145)
== END ==
LOC: M LAB 07:13
PROVIDERS: ATTEND Family Medicine
DX: M81.0 Age-related osteoporosis without current pathological fracture (principal)

== ENCOUNTER 2017-03-23 08:08 | Outpatient (CLI) | payer MEDICARE, MEDICAID ==
[~2017-03-23] VITALS: Ht 152.4 cm; Wt 58.8 kg
[~2017-03-23 08:08] MED LIST changes: -ALLE180T33 PO; -CEFD300CAP FT; -CLAR1TAB2 PO; -FIOR1CAP PO; -GUAI100S7 PO; -LEVO500T3; -LEVOTAB10 PO; -MUCI600T37 PO; -NASA1SPR; -PANT40TA2 PO; -PRED20TA
[2017-03-23] MEDS ORDERED: ZOLEDRONIC ACID 5 MG in APPROPRIATE DILUENT 1 EA IV ONE (08:15)
[2017-03-24] MEDS ORDERED: PANT40TA2 PO (14:32)
== END 2017-03-23 09:45 | disposition home or self-care (01) ==
LOC: M INFU 08:08
PROVIDERS: ATTEND Family Medicine
DX: M81.0 Age-related osteoporosis without current pathological fracture (principal); Z78.0 Asymptomatic menopausal state; Z88.8 Allergy status to other drugs, medicaments and biological substances; Z88.1 Allergy status to other antibiotic agents; Z88.2 Allergy status to sulfonamides; Z96.652 Presence of left artificial knee joint; Z72.0 Tobacco use
CPT/HCPCS: 96365; J3489

== ENCOUNTER → 2017-04-05 | Outpatient (REF) | payer MEDICARE, MEDICAID ==
[~2017-04-05] MED LIST changes: +ALLE180T33 PO; +CEFD300CAP FT; +CLAR1TAB2 PO; +FIOR1CAP PO; +GUAI100S7 PO; +LEVO500T3; +LEVOTAB10 PO; +MUCI600T37 PO; +NASA1SPR; +PANT40TA2 PO; +PRED20TA
== END ==
LOC: M SFHCPLAZ 15:00
PROVIDERS: ATTEND Nurse Practitioner Family
DX: J02.9 Acute pharyngitis, unspecified (principal)

== ENCOUNTER → 2017-04-11 | Outpatient (CLI) | payer MEDICARE, MEDICAID ==
--- NOTE | 2017-04-11 09:07 | REP ---
PA and lateral chest: Comparison is a 07/2006. The lung henry are clear. Cardiac size is normal. The inga and mediastinum are unremarkable. There is thoracic scoliosis convex right lumbar scoliosis convex left. This is unchanged. There is surgical fusion of the lumbar spine, unchanged. There is a stabilization plate in the cervical spine, unchanged. Impression: No acute cardiopulmonary findings. Signed by Naveed Segura MD 04/11/2017 08:59 A
== END ==
LOC: M LAB 07:33
PROVIDERS: ATTEND Family Medicine
DX: R05 Cough (principal)

== ENCOUNTER 2017-04-14 14:59 | Emergency (ER) | payer MEDICARE, MEDICAID ==
[~2017-04-14] VITALS: Ht 162.6 cm; Wt 57.7 kg
[~2017-04-14 14:59] MED LIST changes: -ALLE180T33 PO; -CEFD300CAP FT; -CLAR1TAB2 PO; -FIOR1CAP PO; -GUAI100S7 PO; -LEVO500T3; -LEVOTAB10 PO; -MUCI600T37 PO; -NASA1SPR; -PRED20TA
[2017-04-14] MEDS ORDERED: LEVO500T3 (15:15)
[2017-04-14] MEDS ORDERED: PRED20TA (15:15)
--- NOTE | 2017-04-14 18:07 | REP ---
CHEST, TWO VIEWS: COMPARISON: 04/11/2017 There is no evidence of acute infiltrate. No pleural effusion is seen. The heart is normal in size. The mediastinal silhouette is unremarkable. The visualized osseous structures are intact. IMPRESSION: No acute pulmonary disease. Signed by Naveed Hdz MD 04/14/2017 07:26 P
[2017-04-14] MEDS ORDERED: GUAI100S7 PO (18:26)
[2017-04-14] MEDS ORDERED: CLAR1TAB2 PO (18:26)
[2017-04-14 18:39] VITALS: BP 108/72
== END 2017-04-14 18:50 | disposition home or self-care (01) ==
LOC: M ED 14:59
DX: R05 Cough (principal); I25.2 Old myocardial infarction; Z86.73 Personal history of transient ischemic attack (TIA), and cerebral infarction without residual deficits; G25.81 Restless legs syndrome; J45.909 Unspecified asthma, uncomplicated; D64.9 Anemia, unspecified; E03.9 Hypothyroidism, unspecified; Z87.891 Personal history of nicotine dependence; Z79.82 Long term (current) use of aspirin; Z79.899 Other long term (current) drug therapy; Z88.1 Allergy status to other antibiotic agents; Z88.2 Allergy status to sulfonamides; Z88.8 Allergy status to other drugs, medicaments and biological substances; Z91.89 Other specified personal risk factors, not elsewhere classified

== ENCOUNTER 2017-04-18 07:35 | Outpatient (CLI) | payer MEDICARE, MEDICAID ==
[~2017-04-18] VITALS: Ht 152.4 cm; Wt 57.6 kg
[~2017-04-18 07:35] MED LIST changes: +CLAR1TAB2 PO; +GUAI100S7 PO; +LEVO500T3; +NS 1,000 ML IV SCH; +PRED20TA
[2017-04-18] MEDS ORDERED: fentaNYL 100 MCG/2 ML INJECTION (J3010) As Ordered ONE (08:21)
[2017-04-18] MEDS ORDERED: PROPOFOL 200 MG/20 ML VIAL As Ordered ONE (08:22)
[2017-04-18] MEDS ORDERED: LIDOCAINE 2% INJ 100 MG/5 ML SDV (FOR ANES.) As Ordered ONE (08:22)
--- NOTE | 2017-04-18 08:50 | ROOR ---
Patient Name: Bri Ordonez Procedure Date: 04/18/2017 8:20 AM Date of : 1940 Age: 77 Room: [facility] Gender: Female Note Status: Finalized Procedure: Upper GI endoscopy Indications: Dyspepsia, Dysphagia, Suspected gastro-esophageal reflux disease Providers: Jaspal Price MD Referring MD: Jim Arizmendi MD Requesting Provider: Medicines: Monitored Anesthesia Care Complications: No immediate complications. Procedure: Pre-Anesthesia Assessment: - Prior to the procedure, a History and Physical was performed, and patient medications and allergies were reviewed. The patient is competent. The risks and benefits of the procedure and the sedation options and risks were discussed with the patient. All questions were answered and informed consent was obtained. Patient identification and proposed procedure were verified by the physician, the nurse and the billet heater in the procedure room. Mental Status Examination: alert and oriented. Airway Examination: normal oropharyngeal airway and neck mobility. Respiratory Examination: clear to auscultation. CV Examination: normal. Prophylactic Antibiotics: The patient does not require prophylactic antibiotics. Prior Anticoagulants: The patient has taken no previous anticoagulant or antiplatelet agents. ASA Grade Assessment: III - A patient with severe systemic disease. After reviewing the risks and benefits, the patient was deemed in satisfactory condition to undergo the procedure. The anesthesia plan was to use monitored anesthesia care (MAC). Immediately prior to administration of medications, the patient was re-assessed for adequacy to receive sedatives. The heart rate, respiratory rate, oxygen saturations, blood pressure, adequacy of pulmonary ventilation, and response to care were monitored throughout the procedure. The physical status of the patient was re-assessed after the procedure. The Endoscope was introduced through the mouth, and advanced to the afferent and efferent jejunal loops. The upper GI endoscopy was accomplished without difficulty. The patient tolerated the procedure well. Findings: No gross lesions were noted in the entire esophagus. Two biopsies were obtained with cold forceps for histology in the upper third of the esophagus. Verification of patient identification for the specimen was done by the physician and nurse using the patient's name, date and medical record number. Estimated blood loss was minimal. The Z-line was irregular and was found 36 cm from the incisors. Diffuse moderate inflammation characterized by congestion (edema) and erythema was found in the entire examined stomach. Biopsies were taken with a cold forceps for Helicobacter pylori testing. Evidence of a gastrojejunostomy was found in the gastric antrum. This was characterized by congestion and inflammation. The examined jejunum was normal. Impression: - No gross lesions in esophagus. - Z-line irregular, 36 cm from the incisors. - Bile gastritis. Biopsied. - A gastrojejunostomy was found, characterized by congestion and inflammation. - Normal examined jejunum. - Biopsies performed in the upper third of the esophagus. Recommendation: - Patient has a contact number available for emergencies. The signs and symptoms of potential delayed complications were discussed with the patient. Return to normal activities tomorrow. Written discharge instructions were provided to the patient. - Clear liquid diet for 1 day, then advance as tolerated to resume previous diet. - Continue present medications. - Use Protonix (pantoprazole) 40 mg PO BID for 12 weeks. - Await pathology results. - Return to GI clinic in 3 weeks. - Return to primary care physician. Jaspal Price MD Jaspal Price MD 04/18/2017 8:50:37 AM This report has been signed electronically. Number of Addenda: 0 Note Initiated On: 04/18/2017 8:20 AM Estimated Blood Loss: Estimated blood loss was minimal.
[2017-04-18 09:10] VITALS: BP 149/70
--- NOTE | 2017-05-15 13:01 | ROOR ---
Patient Name: Bri Ordonez Procedure Date: 04/18/2017 10:05 AM Date of : 1940 Age: 77 Room: [facility] Gender: Female Note Status: Finalized Procedure: Esophageal FIGUEROA pH Capsule Results / Interpretation Indications: Follow-up of gastro-esophageal reflux disease Providers: Jaspal Price MD Referring MD: Jim Arizmendi MD Requesting Provider: Medicines: ON PPI/Reflux meds Complications: No immediate complications. Procedure: Pre-Anesthesia Assessment: - After reviewing the risks and benefits, the patient was deemed in satisfactory condition to undergo the procedure. The FIGUEROA was accomplished without difficulty. The patient tolerated the procedure well. Findings: DAY 1 ACID REFLUX ANALYSIS: - Acid Exposure with pH < 4.0: Total Percent Time: 0.6 %. - Number of Reflux Episodes: Total Refluxes: 8 Number of reflux episodes > 5 minutes: 0. - Longest reflux episode: 2 minutes. - See the [employer] FIGUEROA data report for further details. DAY 2 ACID REFLUX ANALYSIS: - Acid Exposure Time(s) for pH < 4.0: Total Percent Time: 1.0 %. - Number of Reflux Episodes: Total Refluxes: 10 Number of reflux episodes > 5 minutes: 0. - Longest reflux episode: 3 minutes. - See the [employer] FIGUEROA data report for further details. TOTALS FOR ACID REFLUX ANALYSIS: - Acid Exposure Time(s) for pH < 4.0: Total Percent Time: 0.8 %. - Number of Reflux Episodes: Total Refluxes: 18 Number of reflux episodes > 5 minutes: 0. - Longest reflux episode: 3 minutes. - See the [employer] FIGUEROA data report for further details. Total DeMeester Score: 3.6 Symptom correlation: Cannot be assessed as patient taking PPI during the study. Impression: - Normal pH study but in view of patient not stopping PPI, suspect the patient's acid reflux is suppressed with current medications. - The complete results of this study (for the same date as above) are available in the pH monitoring equipment database, and these results were personally reviewed by me. Recommendation: - Patient has a contact number available for emergencies. The signs and symptoms of potential delayed complications were discussed with the patient. Return to normal activities tomorrow. Written discharge instructions were provided to the patient. - Return to GI clinic as previously scheduled. Attending Participation: I have reviewed and interpreted the results of the above documented diagnostic study. Jaspal Price MD Jaspal Price MD 05/15/2017 1:01:05 PM This report has been signed electronically. Number of Addenda: 0 Note Initiated On: 05/10/2017 10:05 AM Estimated Blood Loss: Estimated blood loss: none.
== END 2017-04-18 09:17 | disposition home or self-care (01) ==
LOC: M OPP 07:35
PROVIDERS: ATTEND Internal Medicine Gastroenterology
DX: R13.10 Dysphagia, unspecified (principal); R10.13 Epigastric pain; K22.8 Other specified diseases of esophagus; K29.60 Other gastritis without bleeding; Z98.0 Intestinal bypass and anastomosis status; K21.9 Gastro-esophageal reflux disease without esophagitis; J44.9 Chronic obstructive pulmonary disease, unspecified; E78.00 Pure hypercholesterolemia, unspecified; G89.29 Other chronic pain; E07.9 Disorder of thyroid, unspecified; J45.30 Mild persistent asthma, uncomplicated; M81.8 Other osteoporosis without current pathological fracture; Z79.82 Long term (current) use of aspirin; Z79.899 Other long term (current) drug therapy; Z88.0 Allergy status to penicillin; Z88.1 Allergy status to other antibiotic agents; Z88.2 Allergy status to sulfonamides; Z88.8 Allergy status to other drugs, medicaments and biological substances; Z87.891 Personal history of nicotine dependence
CPT/HCPCS: 43239; 88305; J3010

== ENCOUNTER 2017-04-20 08:16 | Outpatient (RCR) | payer MEDICARE, MEDICAID ==
[~2017-04-20 08:16] MED LIST changes: -NS 1,000 ML IV SCH
== END 2017-04-22 ==
LOC: M PT 08:16
PROVIDERS: ATTEND Orthopaedic Surgery
DX: Z51.89 Encounter for other specified aftercare (principal); M54.12 Radiculopathy, cervical region
CPT/HCPCS: 97110; 97140; 97162; G8978; G8979

== ENCOUNTER 2017-04-30 07:58 | Emergency (ER) | payer MEDICARE, MEDICAID ==
[~2017-04-30] VITALS: Ht 152.4 cm; Wt 56.2 kg
[2017-04-30] MEDS ORDERED: NASA1SPR (08:17)
[2017-04-30] MEDS ORDERED: LEVOTAB10 PO (08:17)
[2017-04-30] MEDS ORDERED: ALLE180T33 PO (08:17)
[2017-04-30] MEDS ORDERED: MUCI600T37 PO (08:17)
[2017-04-30] MEDS ORDERED: ACETAMINOPHEN TAB 650MG DOSE (2X325MG) PO ONE (08:45)
[2017-04-30 11:17] VITALS: BP 118/66
--- NOTE | 2017-04-30 11:41 | REP ---
REASON: Pain. The bones are markedly demineralized. This is to such a degree a fracture could be obscured. Degenerative change is seen throughout the foot. Plantar and retrocalcaneal heel spurs are present. IMPRESSION: Chronic changes without definite evidence of an acute fracture, however, followup may be warranted depending on the type and severity of pain. Signed by Mic Dotson DO 04/30/2017 10:19 A
--- NOTE | 2017-04-30 11:41 | REP ---
REASON: Pain. COMPARISON: 03/10/2017 There is no change from the prior exam. There are chronic changes, status quo. Signed by Mic Dotson DO 04/30/2017 10:19 A
--- NOTE | 2017-04-30 11:42 | REP ---
REASON: Pain after falling out of bed. AP PELVIS: Bilateral hip degenerative changes with bilateral sacroiliac joint degenerative changes and degenerative changes involving the pubic symphysis. Postop change is seen involving the lumbar spine, L3 through L5 inclusive. There is no acute fracture or dislocation. The bones are demineralized. IMPRESSION: Chronic changes. LEFT HIP, TWO VIEWS: REASON: Pain after falling out of bed. There is mild asymmetric hip joint space narrowing without buttressing or marginal osteophytosis. There is no fracture or dislocation. IMPRESSION: Chronic changes. Signed by Mic Dotson DO 04/30/2017 10:19 A
--- NOTE | 2017-04-30 11:42 | REP ---
REASON: Pain. Previous ORIF and knee prosthesis are noted. The bones are demineralized. There is no evidence of an acute fracture. Signed by Mic Dotson DO 04/30/2017 10:19 A
== END 2017-04-30 11:27 | disposition home or self-care (01) ==
LOC: M ED 07:58 → EDBD 07:58 → M ED 11:27
DX: S40.012A Contusion of left shoulder, initial encounter (principal); S80.02XA Contusion of left knee, initial encounter; S90.32XA Contusion of left foot, initial encounter; W06.XXXA Fall from bed, initial encounter; Y92.003 Bedroom of unspecified non-institutional (private) residence as the place of occurrence of the external cause; Y93.89 Activity, other specified; Y99.8 Other external cause status; M77.52 Other enthesopathy of left foot and ankle; Z96.652 Presence of left artificial knee joint; I25.2 Old myocardial infarction; Z86.73 Personal history of transient ischemic attack (TIA), and cerebral infarction without residual deficits; K21.9 Gastro-esophageal reflux disease without esophagitis; Z87.11 Personal history of peptic ulcer disease; M81.0 Age-related osteoporosis without current pathological fracture; Z87.891 Personal history of nicotine dependence; Z79.82 Long term (current) use of aspirin; Z79.899 Other long term (current) drug therapy; Z88.1 Allergy status to other antibiotic agents; Z88.2 Allergy status to sulfonamides; Z91.89 Other specified personal risk factors, not elsewhere classified; Z88.8 Allergy status to other drugs, medicaments and biological substances

== ENCOUNTER 2017-05-06 18:45 | Emergency (ER) | payer MEDICARE, MEDICAID ==
[~2017-05-06] VITALS: Ht 152.4 cm; Wt 48.6 kg
[~2017-05-06 18:45] MED LIST changes: +ALLE180T33 PO; +LEVOTAB10 PO; +MUCI600T37 PO; +NASA1SPR
--- NOTE | 2017-05-06 21:10 | REPUSA ---
CT of the head Clinical history: Headache. Technique: Multiple axial CT images were obtained through the head without administration of contrast . Comparison: 02/08/2014. Findings: The ventricles and sulci are symmetric bilaterally. Encephalomalacia the left temporal lobe is stable. There is no evidence of acute hemorrhage or infarct. There is no midline shift, mass effe ct, or extra-axial fluid collection. The osseous structures are unremarkable. The visualized paranasa l sinuses and mastoid air cells are clear. Impression: Negative study. No acute findings. Stable encephalomalacia in the left temporal lobe.
[2017-05-06 21:24] LABS: BASO % 0.5 % (0.0-1.0); EOS # 0.2 10^3/uL (0.0-0.50); EOS % 3.4 % (0.0-3.0); IMMATURE GRANULOCYTE % 0.2 % (0-0); LYMPH # 1.4 10^3/uL (1.5-4.5); LYMPH % 23.6 % (24.0-44.0); MEAN CORPUSCULAR HEMOGLOBIN 32.4 pg (27.0-33.0); MEAN CORPUSCULAR HGB CONC 32.8 g/dl (32.0-36.5); MEAN CORPUSCULAR VOLUME 98.8 fl (80.0-96.0); MONO # 0.5 10^3/uL (0.0-0.8); MONO % 8.9 % (0.0-5.0); NEUTROPHILS # 3.8 10^3/uL (1.8-7.7); NEUTROPHILS % 63.4 % (36.0-66.0); PLATELET COUNT, AUTOMATED 177 10^3/uL (150-450); RED CELL DISTRIBUTION WIDTH 13.5 % (11.5-14.5); WHITE BLOOD COUNT 5.9 10^3/uL (4.0-10.0)
[2017-05-06 21:41] LABS: ERYTHROCYTE SEDIMENTATION RATE 15 mm/hr (0-30)
[2017-05-06 21:49] LABS: ALBUMIN 3.4 GM/DL (3.2-5.2); ALBUMIN/GLOBULIN RATIO 1.26 (1.00-1.93); ALKALINE PHOSPHATASE 182 U/L (45-117); ALT/SGPT 26 U/L (12-78); ANION GAP 8 MEQ/L (8-16); AST/SGOT 21 U/L (15-37); BILIRUBIN,TOTAL 0.2 MG/DL (0.2-1.0); BLOOD UREA NITROGEN 13 MG/DL (7-18); CALCIUM LEVEL 9.2 MG/DL (8.8-10.2); CARBON DIOXIDE LEVEL 28 MEQ/L (21-32); CHLORIDE LEVEL 108 MEQ/L (98-107); CREATININE FOR GFR 0.71 MG/DL (0.55-1.02); GLOMERULAR FILTRATION RATE > 60.0 (>39); GLUCOSE, FASTING 91 MG/DL (83-110); POTASSIUM SERUM 4.1 MEQ/L (3.5-5.1); SODIUM LEVEL 144 MEQ/L (136-145); TOTAL PROTEIN 6.1 GM/DL (6.4-8.2)
[2017-05-06] MEDS ORDERED: KETOROLAC 30 MG/ML VIAL (J1885) IV ONE (22:30)
[2017-05-06] MEDS ORDERED: FIOR1CAP PO (22:55)
[2017-05-06] MEDS ORDERED: CEFD300CAP FT (23:00)
[2017-05-06 23:13] VITALS: BP 152/94
== END 2017-05-06 23:21 | disposition home or self-care (01) ==
LOC: M ED 18:45
DX: G44.219 Episodic tension-type headache, not intractable (principal); J01.90 Acute sinusitis, unspecified; Z86.73 Personal history of transient ischemic attack (TIA), and cerebral infarction without residual deficits; Z79.82 Long term (current) use of aspirin; Z79.899 Other long term (current) drug therapy; Z88.1 Allergy status to other antibiotic agents; Z88.2 Allergy status to sulfonamides; Z91.89 Other specified personal risk factors, not elsewhere classified; Z88.8 Allergy status to other drugs, medicaments and biological substances
CPT/HCPCS: 70450; 80053; 85025; 85652; 96374; 99283; J1885

== ENCOUNTER → 2017-05-12 | Outpatient (REF) | payer MEDICARE, MEDICAID ==
[~2017-05-12] MED LIST changes: +CEFD300CAP FT; +FIOR1CAP PO
[2017-05-12 11:47] LABS: MEAN CORPUSCULAR HEMOGLOBIN 32.1 pg (27.0-33.0); MEAN CORPUSCULAR HGB CONC 32.1 g/dl (32.0-36.5); PLATELET COUNT, AUTOMATED 189 10^3/uL (150-450); RED CELL DISTRIBUTION WIDTH 13.8 % (11.5-14.5); RETIC HEMOGLOBIN EQUIVALENT 36.5 pg (24-36); WHITE BLOOD COUNT 5.5 10^3/uL (4.0-10.0)
[2017-05-12 12:41] LABS: FOLATE > 24.0 NG/ML (>5.4); VITAMIN B12 LEVEL 842 PG/ML (247-911)
[2017-05-12 13:04] LABS: ALBUMIN 3.3 GM/DL (3.2-5.2); ALBUMIN/GLOBULIN RATIO 1.06 (1.00-1.93); ALKALINE PHOSPHATASE 179 U/L (45-117); ALT/SGPT 29 U/L (12-78); ANION GAP 8 MEQ/L (8-16); AST/SGOT 21 U/L (15-37); BILIRUBIN,TOTAL 0.3 MG/DL (0.2-1.0); BLOOD UREA NITROGEN 13 MG/DL (7-18); CALCIUM LEVEL 8.3 MG/DL (8.8-10.2); CARBON DIOXIDE LEVEL 27 MEQ/L (21-32); CHLORIDE LEVEL 108 MEQ/L (98-107); CHOLESTEROL LEVEL 127 MG/DL (<200); CREATININE FOR GFR 0.72 MG/DL (0.55-1.02); FERRITIN 10 NG/ML (8-252); FREE T4 0.87 NG/DL (0.76-1.46); GLOMERULAR FILTRATION RATE > 60.0 (>39); GLUCOSE, FASTING 94 MG/DL (83-110); PERCENT SATURATION 18.3 % (13.2-45.0); POTASSIUM SERUM 4.3 MEQ/L (3.5-5.1); SODIUM LEVEL 143 MEQ/L (136-145); TOTAL IRON BINDING CAPACITY 328 UG/DL (250-450); TOTAL PROTEIN 6.4 GM/DL (6.4-8.2); TRIGLYCERIDES LEVEL 142 MG/DL (<150)
[2017-05-14 00:06] LABS: FREE KAPPA LIGHT CHAINS SERUM 19.2 mg/L (3.3-19.4); FREE LAMBDA LIGHT CHAINS SERUM 15.5 mg/L (5.7-26.3); KAPPA/LAMBDA RATIO SERUM 1.24 (0.26-1.65)
[2017-05-16 11:28] LABS: ALBUMIN % 59.2 % (55.8-66.1)
[2017-05-16 11:29] LABS: ALBUMIN 3.79 GM/DL (3.29-5.55); GAMMA GLOBULIN % 9.4 % (11.1-18.8)
== END ==
LOC: M SFHCPLAZ 09:46
PROVIDERS: ATTEND Family Medicine
DX: I69.998 Other sequelae following unspecified cerebrovascular disease (principal); E03.9 Hypothyroidism, unspecified; E78.2 Mixed hyperlipidemia; M81.0 Age-related osteoporosis without current pathological fracture; D75.89 Other specified diseases of blood and blood-forming organs; D50.0 Iron deficiency anemia secondary to blood loss (chronic)
CPT/HCPCS: 36415; 80053; 80061; 82306; 82607; 82728; 82746; 83550; 83883; 84165; 84439; 84443; 85027; 85046; 86334; 90662; G0008; G0463

== ENCOUNTER → 2017-05-23 | Outpatient (RCR) | payer MEDICARE, MEDICAID | LOC: M PT 04-24 07:30 | PROVIDERS: ATTEND Orthopaedic Surgery | DX: Z51.89 Encounter for other specified aftercare (principal); M54.2 Cervicalgia | CPT/HCPCS: 97035; 97110; 97140; 97162; G8978; G8979; G8980 ==

== ENCOUNTER → 2017-05-23 | Outpatient (CLI) | payer MEDICARE, MEDICAID ==
--- NOTE | 2017-05-23 10:48 | REP ---
Left foot four views: Comparison is 04/30/2017. There is diffuse demineralization, unchanged. There is no fracture or dislocation. There is osteoarthritis of the great toe MTP articulation. There is joint space narrowing and osteoarthritis of the T T articulations. There are calcaneal Achilles and plantar spurs. There is degenerative calcification in the distal Achilles tendon. Impression: Diffuse demineralization. No fracture or dislocation. Osteoarthritis as described. Calcaneal spurs. Degenerative calcification in the distal Achilles tendon Signed by Naveed Segura MD 05/23/2017 10:40 A
== END ==
LOC: M RAD 09:22
PROVIDERS: ATTEND Family Medicine
DX: M79.672 Pain in left foot (principal)

== ENCOUNTER → 2017-05-24 | Outpatient (CLI) | payer MEDICARE, MEDICAID ==
[2017-05-24 09:04] LABS: ALBUMIN 3.5 GM/DL (3.2-5.2); ALBUMIN/GLOBULIN RATIO 1.25 (1.00-1.93); ALKALINE PHOSPHATASE 192 U/L (45-117); ALT/SGPT 30 U/L (12-78); AST/SGOT 23 U/L (7-37); BILIRUBIN,DIRECT < 0.1 MG/DL (0.0-0.2); BILIRUBIN,TOTAL 0.3 MG/DL (0.2-1.0); CHOLESTEROL LEVEL 141 MG/DL (<200); TOTAL PROTEIN 6.3 GM/DL (6.4-8.2); TRIGLYCERIDES LEVEL 107 MG/DL (<150)
== END ==
LOC: M LAB 07:49
PROVIDERS: ATTEND Nurse Practitioner Family
DX: E78.2 Mixed hyperlipidemia (principal)

== ENCOUNTER 2017-06-07 08:30 | Outpatient (RCR) | payer MEDICARE, MEDICAID | END 2017-06-22 | LOC: M PT 08:30 | PROVIDERS: ATTEND Physician Assistant | DX: M51.36 Other intervertebral disc degeneration, lumbar region (principal); M48.061 Spinal stenosis, lumbar region without neurogenic claudication; S40.012A Contusion of left shoulder, initial encounter; S80.02XA Contusion of left knee, initial encounter; S90.32XA Contusion of left foot, initial encounter; W19.XXXA Unspecified fall, initial encounter; Y92.9 Unspecified place or not applicable | CPT/HCPCS: 97035; 97110; 97140; G8978; G8979; G8980 ==

== ENCOUNTER 2017-06-18 10:13 | Emergency (ER) | payer MEDICARE, MEDICAID ==
[~2017-06-18] VITALS: Ht 152.4 cm; Wt 57.3 kg
[2017-06-18] MEDS ORDERED: ACETAMINOPHEN TAB 650MG DOSE (2X325MG) PO ONE (11:00)
--- NOTE | 2017-06-18 11:39 | REP ---
Clinical: Pain. Technique: AP, lateral, bilateral oblique views of the right wrist. Findings: Moderate/early advanced arthritic degenerative changes include subchondral sclerosis, small loose bodies and chondrocalcinosis as well as joint space narrowing primarily involving the proximal radiocarpal and ulnocarpal joint line. No acute fracture dislocation. Impression: Moderate to advanced arthritic degenerative changes. Signed by Swapnil Ayala MD 06/18/2017 11:30 A
[2017-06-18 11:52] VITALS: BP 109/77
== END 2017-06-18 11:58 | disposition home or self-care (01) ==
LOC: M ED 10:13
DX: M65.4 Radial styloid tenosynovitis [de Quervain] (principal); K58.9 Irritable bowel syndrome, unspecified; M54.9 Dorsalgia, unspecified; J45.909 Unspecified asthma, uncomplicated; K52.9 Noninfective gastroenteritis and colitis, unspecified; Z90.49 Acquired absence of other specified parts of digestive tract; M19.031 Primary osteoarthritis, right wrist; Z79.82 Long term (current) use of aspirin; Z79.899 Other long term (current) drug therapy; Z88.1 Allergy status to other antibiotic agents; Z88.2 Allergy status to sulfonamides; Z91.89 Other specified personal risk factors, not elsewhere classified; Z88.8 Allergy status to other drugs, medicaments and biological substances

== ENCOUNTER → 2017-06-28 | Outpatient (CLI) | payer MEDICARE ==
--- NOTE | 2017-06-28 12:44 | REPMRS ---
Patient History The patient states she has not had a clinical breast exam in over a year. Patient is postmenopausal. Family history of breast cancer in niece. Digital Woman Screen Mammo: June 28, 2017 - Exam #: [id number] Bilateral CC and MLO view(s) were taken. Technologist: Erin Hill, Technologist Prior study comparison: January 29, 2016, digital woman screen mammo performed at [facility]. January 02, 2015, digital woman screen mammo performed at [facility]. August 02, 2013, digital woman screen mammo performed at [facility]. FINDINGS: There are scattered fibroglandular densities. There has been no change in the appearance of the mammogram from the prior studies. There is a mild amount of residual fibroglandular tissue which is fairly symmetric. There is no interval development of dominant mass, architectural distortion, or clustered microcalcification suggestive of malignancy. Scattered lymph nodes are seen in the right axilla. There are benign arterial calcifications noted. There are scattered, small, benign calcifications of doubtful clinical significance. No significant changes when compared with prior studies. ASSESSMENT: BI-RADS/ACR category 2 mammogram. Benign finding(s). Recommendation Routine screening mammogram in 1 year (for women over age 40). This mammogram was interpreted with the aid of an FDA-approved computer-aided dectection system. A. Negative x-ray reports should not delay biopsy if a dominant or clinically suspicious mass is present. B. Four to eight percent of cancers are not identified by mammography. C. Adenosis and dense breast may obscure an underlying neoplasm. Electronically Signed By: Dwayne Alvarez MD 06/28/17 [id number]
== END ==
LOC: M WHC 10:05
PROVIDERS: ATTEND Family Medicine
DX: Z12.31 Encounter for screening mammogram for malignant neoplasm of breast (principal); Z80.3 Family history of malignant neoplasm of breast; Z78.0 Asymptomatic menopausal state

== ENCOUNTER → 2017-07-28 | Outpatient (REF) | payer MEDICARE, MEDICAID | LOC: M SFHCPLAZ 16:55 | DX: R30.0 Dysuria (principal) | CPT/HCPCS: 87086 ==

== ENCOUNTER → 2017-08-03 | Outpatient (CLI) | payer MEDICARE, MEDICAID ==
[2017-08-03 10:28] LABS: HEMATOCRIT 36.1 % (36.0-47.0); HEMOGLOBIN 11.5 g/dl (12.0-16.0); MEAN CORPUSCULAR HEMOGLOBIN 31.1 pg (27.0-33.0); MEAN CORPUSCULAR HGB CONC 31.9 g/dl (32.0-36.5); MEAN CORPUSCULAR VOLUME 97.6 fl (80.0-96.0); PLATELET COUNT, AUTOMATED 202 10^3/uL (150-450); RED CELL DISTRIBUTION WIDTH 13.2 % (11.5-14.5); WHITE BLOOD COUNT 6.9 10^3/uL (4.0-10.0)
[2017-08-03 10:51] LABS: ALBUMIN 3.5 GM/DL (3.2-5.2); ALKALINE PHOSPHATASE 164 U/L (45-117); ALT/SGPT 24 U/L (12-78); ANION GAP 8 MEQ/L (8-16); AST/SGOT 24 U/L (7-37); BILIRUBIN,TOTAL 0.2 MG/DL (0.2-1.0); BLOOD UREA NITROGEN 12 MG/DL (7-18); CALCIUM LEVEL 8.6 MG/DL (8.8-10.2); CARBON DIOXIDE LEVEL 28 MEQ/L (21-32); CHLORIDE LEVEL 107 MEQ/L (98-107); CREATININE FOR GFR 0.77 MG/DL (0.55-1.02); GLOMERULAR FILTRATION RATE > 60.0 (>39); GLUCOSE, FASTING 88 MG/DL (83-110); POTASSIUM SERUM 4.3 MEQ/L (3.5-5.1); SODIUM LEVEL 143 MEQ/L (136-145); TOTAL PROTEIN 6.2 GM/DL (6.4-8.2)
== END ==
LOC: M LAB 09:45
DX: D64.9 Anemia, unspecified (principal)
CPT/HCPCS: 80053

== ENCOUNTER → 2017-08-03 | Outpatient (CLI) | payer MEDICARE, MEDICAID | LOC: M RAD 09:48 | DX: R05 Cough (principal) | CPT/HCPCS: 71046 ==

== ENCOUNTER → 2017-08-04 | Outpatient (REF) | payer MEDICARE, MEDICAID ==
[2017-08-04 18:39] LABS: APPEARANCE, URINE CLEAR (CLEAR); BACTERIA, URINE AUTO NEGATIVE (NEGATIVE); BILIRUBIN, URINE AUTO NEGATIVE (NEGATIVE); BLOOD, URINE BLOOD NEGATIVE (NEGATIVE); COLOR, URINE YELLOW (YELLOW); GLUCOSE, URINE (UA) AUTO NEGATIVE (NEGATIVE); KETONE, URINE AUTO NEGATIVE (NEGATIVE); LEUKOCYTE ESTERASE, URINE AUTO 3+ (NEGATIVE); MUCUS, URINE SMALL (NEGATIVE); NITRITE, URINE AUTO NEGATIVE (NEGATIVE); PROTEIN, URINE AUTO NEGATIVE (NEGATIVE); RBC, URINE AUTO 4 /HPF (0-3); SPECIFIC GRAVITY URINE AUTO 1.012 (1.002-1.035); SQUAMOUS EPITHELIAL CELL UR AU 1 /HPF (0-6); UROBILINOGEN, URINE AUTO 0.2 mg/dL (0.0-2.0); WBC, URINE AUTO 6 /HPF (0-3)
== END ==
LOC: M SFHCPLAZ 17:17
DX: R10.9 Unspecified abdominal pain (principal)
CPT/HCPCS: 81001

== ENCOUNTER 2017-08-31 09:35 | Outpatient (RCR) | payer MEDICARE, MEDICAID | END 2017-09-20 | LOC: M PT 09:35 → M OT 09-07 10:22 → M PT 09-12 10:13 → M OT 09-07 10:22 | DX: Z51.89 Encounter for other specified aftercare (principal); M65.4 Radial styloid tenosynovitis [de Quervain]; M70.61 Trochanteric bursitis, right hip | CPT/HCPCS: 97110 ==

== ENCOUNTER 2017-09-21 09:18 | Outpatient (RCR) | payer MEDICARE, MEDICAID | END 2017-10-21 | LOC: M OT 09-26 09:09 → M PT 10-12 07:44 → M OT 09-26 09:09 → M PT 10-12 07:44 | DX: Z51.89 Encounter for other specified aftercare (principal); M65.4 Radial styloid tenosynovitis [de Quervain]; M70.61 Trochanteric bursitis, right hip | CPT/HCPCS: 97110 ==

== ENCOUNTER 2017-11-02 08:02 | Outpatient (RCR) | payer MEDICARE, MEDICAID | END 2017-11-20 | disposition home or self-care (01) | LOC: M PT 08:02 | DX: Z51.89 Encounter for other specified aftercare (principal); M54.2 Cervicalgia | CPT/HCPCS: 97110 ==

== ENCOUNTER → 2017-11-13 | Outpatient (CLI) | payer MEDICARE, MEDICAID | LOC: M RAD 11:03 | DX: J01.11 Acute recurrent frontal sinusitis (principal) | CPT/HCPCS: 70486 ==

== ENCOUNTER 2017-11-27 10:07 | Outpatient (RCR) | payer MEDICARE, MEDICAID | END 2017-12-21 | LOC: M PT 10:07 | DX: Z51.89 Encounter for other specified aftercare (principal); M54.2 Cervicalgia | CPT/HCPCS: 97110 ==

== ENCOUNTER → 2017-12-11 | Outpatient (CLI) | payer MEDICARE | LOC: M WHC 09:17 | DX: M81.0 Age-related osteoporosis without current pathological fracture (principal) | CPT/HCPCS: 77080 ==

== ENCOUNTER → 2017-12-14 | Outpatient (REF) | payer MEDICARE, MEDICAID | LOC: M SFHCPLAZ 12:59 | DX: J02.9 Acute pharyngitis, unspecified (principal) ==

== ENCOUNTER → 2017-12-21 | Outpatient (CLI) | payer MEDICARE, MEDICAID | LOC: M RAD 07:52 | DX: R59.0 Localized enlarged lymph nodes (principal) | CPT/HCPCS: 76536 ==

== ENCOUNTER 2017-12-25 09:51 | Outpatient (RCR) | payer MEDICARE, MEDICAID | END 2018-01-20 | LOC: M PT 09:51 | DX: Z51.89 Encounter for other specified aftercare (principal); M54.2 Cervicalgia | CPT/HCPCS: 97110 ==

== ENCOUNTER → 2017-12-27 | Outpatient (REF) | payer MEDICARE, MEDICAID ==
[2017-12-27 18:57] LABS: ALBUMIN 3.5 GM/DL (3.2-5.2); ANION GAP 7 MEQ/L (8-16); BLOOD UREA NITROGEN 17 MG/DL (7-18); CALCIUM LEVEL 9.1 MG/DL (8.8-10.2); CARBON DIOXIDE LEVEL 28 MEQ/L (21-32); CHLORIDE LEVEL 106 MEQ/L (98-107); CREATININE FOR GFR 0.81 MG/DL (0.55-1.30); GLOMERULAR FILTRATION RATE > 60.0 (>39); GLUCOSE, FASTING 94 MG/DL (70-100); PHOSPHORUS LEVEL 3.5 MG/DL (2.5-4.9); POTASSIUM SERUM 4.4 MEQ/L (3.5-5.1); SODIUM LEVEL 141 MEQ/L (136-145)
== END ==
LOC: M SFHCPLAZ 18:05
DX: R22.2 Localized swelling, mass and lump, trunk (principal)
CPT/HCPCS: 80069

== ENCOUNTER → 2018-01-02 | Outpatient (CLI) | payer MEDICARE, MEDICAID ==
[~2018-01-02] MED LIST changes: -/CELE20CA PO; -/ESOM40CA OR; -/ROPI1TA OR; -ALBU2TAB INH; -ALLE180T33 PO; -ASPI1TAB PO; -ASPI325T OR; -ASTE0.15; -ATOR1TAB21 PO; -ATOR40TA75 PO; -BACIDCA PO; -BACITAB PO; -BETA2500 PO; -CALC25TA PO; -CALCCHW12 OR; -CALCCHW19 PO; -CARA1TAB2 PO; -CARA1TAB6 PO; -CEFD300CAP FT; -CHOL4PKT PO; -CIPR500T4 PO; -CLAR1TAB2 PO; -COLA100C5 PO; -COLA50CA3 PO; -COLACE PO; -DEXLANSOPRAZOLE PO; -DIARRHEA MED PO; -DILA100C PO; -DOCU10ELUD FT; -DRISDOL PO; -FERR150C PO; -FERR32TA PO; -FIOR1CAP PO; -FLAG500T PO; -FLON0.05; -FLON1SPR; -GABA-283 PO; -GABA600T3 OR; -GABAPOW41 PO; -GUAI100S7 PO; -IMIT50TA PO; -IMOD2TAB14 PO; +ISOVUE-370 76% 100ML VIAL (Q9967) As Ordered; -LEVO500T3; -LEVOTAB10 PO; -LOPE-3 PO; -METAMUCIL PO; -METAPKT PO; -METO10TA2 OR; -METO1TAB87 PO; -MIRA255PW PO; -MOM30SS PO; -MUCI600T37 PO; -MULT1TAB10 PO; -MULTLIQ7 PO; -MV-OCAP PO; -MYRB50TA PO; -NASA1SPR; -NEUR100C OR; -NEUR300C PO; -NIFEREX PO; -OMEP40CA2 PO; -OXYC5TAB2 PO; -OXYCO5TA PO; -OYST1TAB8 PO; -PAME25CA PO; -PANT40TA2 PO; -PERC5TAB12 PO; -PERC5TAB8 OR; -PERCOCET PO; -PHEN100C PO; -PRED1SUS6 OS; -PRED20TA; -PROAAER INH; -PROAAER10 INH; -PROT20TA11 PO; -RANI150T PO; -RECL5INJ2 IV; -REGLAN PO; -SALI0.653; -SENN8.6C PO; -SENN8.6T76 PO; -SENNSYP PO; -SING10TA32 PO; -SINGULAIR PO; -SINGULAR PO; -STOO100C PO; -SYNT112T2 PO; -SYNT75TA OR; -SYNTHROID PO; -TIZA2CAP3 PO; -TYLE325T5 PO; -TYLE650T30 PO; -VALS1TAB49 PO; -VESI10TA2 PO; -VICO5TAB PO; -VITA200016 PO; -VITA20008 PO; -VITA500C10 PO; -ZOCOR PO; -[UNRECOGNIZED DRUG - CODE] OD; -[UNRECOGNIZED DRUG - CODE] OS; -[UNRECOGNIZED DRUG - OTHER] PO; -[UNRECOGNIZED DRUG - OTHER] PO; -metamucil PO
== END ==
LOC: M RAD 08:08
DX: R22.2 Localized swelling, mass and lump, trunk (principal)
CPT/HCPCS: Q9967

== ENCOUNTER 2018-03-19 15:48 | Outpatient (CLI) | payer MEDICARE, MEDICAID ==
[2018-03-19] MEDS: ZOLEDRONIC ACID 5 MG in APPROPRIATE DILUENT 1 EA IV (15:53)
== END 2018-03-19 16:40 | disposition home or self-care (01) ==
LOC: M INFU 15:48
DX: M81.0 Age-related osteoporosis without current pathological fracture (principal); G25.81 Restless legs syndrome; G43.909 Migraine, unspecified, not intractable, without status migrainosus; Z86.73 Personal history of transient ischemic attack (TIA), and cerebral infarction without residual deficits; J45.909 Unspecified asthma, uncomplicated; K58.9 Irritable bowel syndrome, unspecified; K27.9 Peptic ulcer, site unspecified, unspecified as acute or chronic, without hemorrhage or perforation; E03.9 Hypothyroidism, unspecified; M19.90 Unspecified osteoarthritis, unspecified site; M54.2 Cervicalgia; M48.02 Spinal stenosis, cervical region; E55.9 Vitamin D deficiency, unspecified; D50.9 Iron deficiency anemia, unspecified; Z88.8 Allergy status to other drugs, medicaments and biological substances; Z88.1 Allergy status to other antibiotic agents; Z88.2 Allergy status to sulfonamides; Z91.048 Other nonmedicinal substance allergy status; Z91.012 Allergy to eggs; Z79.82 Long term (current) use of aspirin; Z79.899 Other long term (current) drug therapy
CPT/HCPCS: J3489

== ENCOUNTER 2018-03-27 08:09 | Outpatient (RCR) | payer MEDICARE, MEDICAID | END 2018-04-22 | LOC: M PT 08:09 | DX: Z51.89 Encounter for other specified aftercare (principal); M51.36 Other intervertebral disc degeneration, lumbar region | CPT/HCPCS: 97110 ==

== ENCOUNTER 2018-04-24 10:00 | Outpatient (RCR) | payer MEDICARE, MEDICAID | END 2018-05-23 | LOC: M PT 10:00 | DX: M51.36 Other intervertebral disc degeneration, lumbar region (principal) | CPT/HCPCS: 97110 ==

== ENCOUNTER → 2018-05-10 | Outpatient (CLI) | payer MEDICARE, MEDICAID ==
[2018-05-10 07:24] LABS: BASO % 0.6 % (0.0-1.0); EOS # 0.3 10^3/uL (0.0-0.50); EOS % 3.8 % (0.0-3.0); HEMATOCRIT 42.8 % (36.0-47.0); IMMATURE GRANULOCYTE % 0.3 % (0-3.0); LYMPH # 1.9 10^3/uL (1.5-4.5); LYMPH % 27.5 % (24.0-44.0); MEAN CORPUSCULAR HEMOGLOBIN 33.7 pg (27.0-33.0); MEAN CORPUSCULAR HGB CONC 32.7 g/dl (32.0-36.5); MEAN CORPUSCULAR VOLUME 103.1 fl (80.0-96.0); MONO # 0.6 10^3/uL (0.0-0.8); MONO % 8.3 % (0.0-5.0); NEUTROPHILS # 4.1 10^3/uL (1.8-7.7); NEUTROPHILS % 59.5 % (36.0-66.0); PLATELET COUNT, AUTOMATED 200 10^3/uL (150-450); RED BLOOD COUNT 4.15 10^6/uL (4.00-5.40); WHITE BLOOD COUNT 6.8 10^3/uL (4.0-10.0)
[2018-05-10 07:41] LABS: ESTIMATED AVERAGE GLUCOSE 117 MG/DL (60-110); HEMOGLOBIN A1c 5.7 %
[2018-05-10 07:47] LABS: ANION GAP 8 MEQ/L (8-16); BLOOD UREA NITROGEN 18 MG/DL (7-18); CALCIUM LEVEL 8.8 MG/DL (8.8-10.2); CARBON DIOXIDE LEVEL 26 MEQ/L (21-32); CHLORIDE LEVEL 109 MEQ/L (98-107); CHOLESTEROL LEVEL 121 MG/DL (<200); CREATININE FOR GFR 0.87 MG/DL (0.55-1.30); GLOMERULAR FILTRATION RATE > 60.0 (>32); GLUCOSE, FASTING 79 MG/DL (70-100); HDL CHOLESTEROL 46 MG/DL (>40); IRON (FE) 61 UG/DL (50-170); LDL CHOLESTEROL 32 MG/DL (<100); NON-HDL-C 75 MG/DL; POTASSIUM SERUM 4.4 MEQ/L (3.5-5.1); SODIUM LEVEL 143 MEQ/L (136-145); TRIGLYCERIDES LEVEL 213 MG/DL (<150)
== END ==
LOC: M LAB 06:47
DX: E78.2 Mixed hyperlipidemia (principal); K52.9 Noninfective gastroenteritis and colitis, unspecified; D50.0 Iron deficiency anemia secondary to blood loss (chronic); D64.1 Secondary sideroblastic anemia due to disease; E55.9 Vitamin D deficiency, unspecified; Z13.1 Encounter for screening for diabetes mellitus
CPT/HCPCS: 83540

== ENCOUNTER 2018-05-21 12:53 | Outpatient (RCR) | payer MEDICARE, MEDICAID | END 2018-05-23 | LOC: M PT 12:53 | DX: M25.572 Pain in left ankle and joints of left foot (principal) | CPT/HCPCS: 97162 ==

== ENCOUNTER 2018-05-24 13:29 | Outpatient (RCR) | payer MEDICARE, MEDICAID | END 2018-06-22 | LOC: M PT 05-29 07:42 | DX: M25.572 Pain in left ankle and joints of left foot (principal) | CPT/HCPCS: 97110 ==

== ENCOUNTER 2018-07-12 10:15 | Outpatient (RCR) | payer MEDICARE, MEDICAID ==
[~2018-07-12 10:15] MED LIST changes: +/CELE20CA PO; +/ESOM40CA OR; +/ROPI1TA OR; +ALBU2TAB INH; +ALLE180T33 PO; +ASPI1TAB PO; +ASPI325T OR; +ASTE0.15; +ATOR1TAB21 PO; +ATOR40TA75 PO; +BACIDCA PO; +BACITAB PO; +BETA2500 PO; +CALC25TA PO; +CALCCHW12 OR; +CALCCHW19 PO; +CARA1TAB2 PO; +CARA1TAB6 PO; +CEFD300CAP FT; +CHOL4PKT PO; +CIPR500T4 PO; +CLAR1TAB2 PO; +COLA100C5 PO; +COLA50CA3 PO; +COLACE PO; +DEXLANSOPRAZOLE PO; +DIARRHEA MED PO; +DILA100C PO; +DOCU10ELUD FT; +DRISDOL PO; +FERR150C PO; +FERR32TA PO; +FIOR1CAP PO; +FLAG500T PO; +FLON0.05; +FLON1SPR; +GABA-845 PO; +GABA600T3 OR; +GABAPOW41 PO; +GUAI100S27 PO; +IMIT50TA PO; +IMOD2TAB14 PO; -ISOVUE-370 76% 100ML VIAL (Q9967) As Ordered; +LEVO500T3; +LEVOTAB10 PO; +LOPE-3 PO; +METAMUCIL PO; +METAPKT PO; +METO10TA2 OR; +METO1TAB87 PO; +MIRA255PW PO; +MOM30SS PO; +MUCI600T37 PO; +MULT1TAB10 PO; +MULTLIQ7 PO; +MV-OCAP PO; +MYRB50TA PO; +NASA1SPR; +NEUR100C OR; +NEUR300C PO; +NIFEREX PO; +OMEP40CA2 PO; +OXYC5TAB2 PO; +OXYCO5TA PO; +OYST1TAB8 PO; +PAME25CA PO; +PANT40TA3 PO; +PERC5TAB12 PO; +PERC5TAB8 OR; +PERCOCET PO; +PHEN100C PO; +PRED1SUS6 OS; +PRED20TA; +PROAAER INH; +PROAAER10 INH; +PROT20TA11 PO; +RANI150T PO; +RECL5INJ2 IV; +REGLAN PO; +SALI0.653; +SENN8.6C PO; +SENN8.6T76 PO; +SENNSYP PO; +SING10TA32 PO; +SINGULAIR PO; +SINGULAR PO; +STOO100C PO; +SYNT112T2 PO; +SYNT75TA OR; +SYNTHROID PO; +TIZA2CAP PO; +TYLE325T5 PO; +TYLE650T30 PO; +VALS1TAB49 PO; +VESI10TA2 PO; +VICO5TAB PO; +VITA200016 PO; +VITA20008 PO; +VITA500C10 PO; +ZOCOR PO; +[UNRECOGNIZED DRUG - CODE] OD; +[UNRECOGNIZED DRUG - CODE] OS; +[UNRECOGNIZED DRUG - OTHER] PO; +[UNRECOGNIZED DRUG - OTHER] PO; +metamucil PO
== END 2018-07-23 ==
LOC: M PT 10:15
PROVIDERS: ATTEND Orthopaedic Surgery
DX: M25.572 Pain in left ankle and joints of left foot (principal)
CPT/HCPCS: 97035; 97110; 97140; G8979; G8980

== ENCOUNTER 2018-08-22 11:03 | Emergency (ER) | payer MEDICARE, MEDICAID ==
[~2018-08-22] VITALS: Ht 152.4 cm; Wt 56.8 kg
[2018-08-22 12:00] LABS: HEMATOCRIT 34.1 % (36.0-47.0); HEMOGLOBIN 11.4 g/dl (12.0-15.5); MEAN CORPUSCULAR HEMOGLOBIN 33.8 pg (27.0-33.0); MEAN CORPUSCULAR HGB CONC 33.4 g/dl (32.0-36.5); MEAN CORPUSCULAR VOLUME 101.2 fl (80.0-96.0); PLATELET COUNT, AUTOMATED 193 10^3/uL (150-450); RED BLOOD COUNT 3.37 10^6/uL (4.00-5.40); WHITE BLOOD COUNT 5.7 10^3/uL (4.0-10.0)
[2018-08-22 12:11] LABS: BLOOD UREA NITROGEN 19 MG/DL (7-18); CALCIUM LEVEL 8.7 MG/DL (8.8-10.2); CARBON DIOXIDE LEVEL 28 MEQ/L (21-32); CHLORIDE LEVEL 106 MEQ/L (98-107); CREATININE FOR GFR 0.87 MG/DL (0.55-1.30); GLOMERULAR FILTRATION RATE > 60.0 (>32); GLUCOSE, FASTING 95 MG/DL (70-100); MAGNESIUM LEVEL 1.8 MG/DL (1.8-2.4); POTASSIUM SERUM 4.3 MEQ/L (3.5-5.1); SODIUM LEVEL 139 MEQ/L (136-145)
[2018-08-22 12:20] VITALS: BP 107/67
== END 2018-08-22 12:35 | disposition home or self-care (01) ==
LOC: M ED 11:03
DX: R25.2 Cramp and spasm (principal); M25.571 Pain in right ankle and joints of right foot; M25.572 Pain in left ankle and joints of left foot; I25.2 Old myocardial infarction; G25.81 Restless legs syndrome; J45.909 Unspecified asthma, uncomplicated; K21.9 Gastro-esophageal reflux disease without esophagitis; K58.9 Irritable bowel syndrome, unspecified; K57.92 Diverticulitis of intestine, part unspecified, without perforation or abscess without bleeding; E03.9 Hypothyroidism, unspecified; M54.9 Dorsalgia, unspecified; D64.9 Anemia, unspecified; Z87.891 Personal history of nicotine dependence; Z88.1 Allergy status to other antibiotic agents; Z88.8 Allergy status to other drugs, medicaments and biological substances; Z88.2 Allergy status to sulfonamides; Z91.048 Other nonmedicinal substance allergy status; Z79.899 Other long term (current) drug therapy; Z79.82 Long term (current) use of aspirin

== ENCOUNTER → 2018-09-20 | Outpatient (RCR) | payer MEDICARE, MEDICAID | LOC: M PT 08-29 09:43 | PROVIDERS: ATTEND Physician Assistant | DX: M75.41 Impingement syndrome of right shoulder (principal) ==

== ENCOUNTER 2018-10-11 09:32 | Outpatient (RCR) | payer MEDICARE, MEDICAID | END 2018-10-21 | LOC: M PT 09:32 | PROVIDERS: ATTEND Physician Assistant | DX: M75.41 Impingement syndrome of right shoulder (principal) ==

== ENCOUNTER → 2018-11-06 | Outpatient (REF) | payer MEDICARE, MEDICAID ==
[~2018-11-06] MED LIST changes: -/CELE20CA PO; -/ESOM40CA OR; -/ROPI1TA OR; -ASPI1TAB PO; +ASPI81TA26 PO; +CELE1CAP4 PO; -DOCU10ELUD FT; +DOCU5LIQ FT; +GUAI100L6 PO; -GUAI100S27 PO; +KONS100P4 PO; -METAPKT PO; -MIRA255PW PO; +NEXI1CAP3 OR; -OYST1TAB8 PO; +OYST500T12 PO; +POLY1POW4 PO; +REQU1TAB16 OR
[2018-11-06 20:38] LABS: HEMATOCRIT 34.5 % (36.0-47.0); HEMOGLOBIN 11.2 g/dl (12.0-15.5); MEAN CORPUSCULAR HEMOGLOBIN 33.6 pg (27.0-33.0); MEAN CORPUSCULAR HGB CONC 32.5 g/dl (32.0-36.5); MEAN CORPUSCULAR VOLUME 103.6 fl (80.0-96.0); PLATELET COUNT, AUTOMATED 183 10^3/uL (150-450); RED BLOOD COUNT 3.33 10^6/uL (4.00-5.40); WHITE BLOOD COUNT 5.8 10^3/uL (4.0-10.0)
[2018-11-06 20:58] LABS: ALBUMIN 3.4 GM/DL (3.2-5.2); ALT/SGPT 25 U/L (12-78); BILIRUBIN,TOTAL 0.2 MG/DL (0.2-1.0); BLOOD UREA NITROGEN 19 MG/DL (7-18); CALCIUM LEVEL 8.6 MG/DL (8.8-10.2); CARBON DIOXIDE LEVEL 27 MEQ/L (21-32); CHLORIDE LEVEL 110 MEQ/L (98-107); CHOLESTEROL LEVEL 112 MG/DL (<200); CHOLESTEROL RISK RATIO 2.333 (<5); CREATININE FOR GFR 0.88 MG/DL (0.55-1.30); FERRITIN 33 NG/ML (8-252); FREE T4 0.85 NG/DL (0.76-1.46); GLOMERULAR FILTRATION RATE > 60.0 (>32); GLUCOSE, FASTING 108 MG/DL (70-100); HDL CHOLESTEROL 48 MG/DL (>40); IRON (FE) 52 UG/DL (50-170); LDL CHOLESTEROL 40 MG/DL (<100); NON-HDL-C 64 MG/DL; PERCENT SATURATION 22.7 % (13.2-45.0); POTASSIUM SERUM 3.8 MEQ/L (3.5-5.1); SODIUM LEVEL 143 MEQ/L (136-145); TOTAL IRON BINDING CAPACITY 229 UG/DL (250-450); TOTAL PROTEIN 5.8 GM/DL (6.4-8.2); TRIGLYCERIDES LEVEL 118 MG/DL (<150)
== END ==
LOC: M SFHCADAM 15:37
PROVIDERS: ATTEND Family Medicine
DX: D50.0 Iron deficiency anemia secondary to blood loss (chronic) (principal); E03.9 Hypothyroidism, unspecified; E78.2 Mixed hyperlipidemia

== ENCOUNTER 2018-12-10 08:10 | Outpatient (RCR) | payer MEDICARE, MEDICAID | END 2018-12-21 | LOC: M PT 08:10 | PROVIDERS: ATTEND Physician Assistant Surgical | DX: M16.12 Unilateral primary osteoarthritis, left hip (principal) ==

== ENCOUNTER 2018-12-12 12:43 | Emergency (ER) | payer MEDICARE, MEDICAID ==
[~2018-12-12] VITALS: Ht 162.6 cm; Wt 56.4 kg
--- NOTE | 2018-12-12 14:52 | REP ---
Clinical: Trauma/fall. Technique: AP view of pelvis with neutral and frog lateral views of the right and left hip. Findings: Osteopenia and degenerative changes involving the visualized thoracolumbar spine including posterior lumbar fixation. Degenerative changes of the pelvis and bilateral hips. No obvious acute fracture or dislocation appreciated. Impression: Osteopenia and degenerative changes. Postsurgical changes. No obvious acute pelvic or hip fracture identified. Electronically Signed by Swapnil Ayala MD 12/12/2018 02:44 P
[2018-12-12] MEDS ORDERED: IBUPROFEN 400 MG TAB PO ONE (15:15)
[2018-12-12 16:11] VITALS: BP 131/70
--- NOTE | 2018-12-12 17:22 | REP ---
LUMBAR SPINE, FOUR VIEWS: HISTORY: Fall. COMPARISON: 06/26/2015. There is no PA radiograph. The patient is L3-5 posterior spinal fusion. Metal hardware is present. There is no acute fracture. The lumbar intervertebral discs are decreased in height consistent with disc degeneration. There are 6 mm of grade 1 spondylolisthesis of L4 on 5. The visualized facet joints are normal in appearance. IMPRESSION: 1. The patient is status-post L3-5 posterior spinal fusion. 2. Degenerative change as described above. Electronically Signed by Slava Viera MD 12/13/2018 08:28 A
== END 2018-12-12 16:53 | disposition home or self-care (01) ==
LOC: EDBD 12:43 → M ED 12:43
DX: S70.01XA Contusion of right hip, initial encounter (principal); V48.4XXA Person boarding or alighting a car injured in noncollision transport accident, initial encounter; Y92.481 Parking lot as the place of occurrence of the external cause; J45.909 Unspecified asthma, uncomplicated; I50.9 Heart failure, unspecified; K21.9 Gastro-esophageal reflux disease without esophagitis; G25.81 Restless legs syndrome; G43.909 Migraine, unspecified, not intractable, without status migrainosus; K58.9 Irritable bowel syndrome, unspecified; D25.9 Leiomyoma of uterus, unspecified; M48.00 Spinal stenosis, site unspecified; E03.9 Hypothyroidism, unspecified; D50.9 Iron deficiency anemia, unspecified; D55.9 Anemia due to enzyme disorder, unspecified; Z79.899 Other long term (current) drug therapy; Z79.890 Hormone replacement therapy; Z79.82 Long term (current) use of aspirin; Z88.1 Allergy status to other antibiotic agents; Z88.2 Allergy status to sulfonamides; Z88.8 Allergy status to other drugs, medicaments and biological substances; Z91.048 Other nonmedicinal substance allergy status

== ENCOUNTER → 2019-01-02 | Outpatient (REF) | payer MEDICARE, MEDICAID ==
[2019-01-03 13:15] LABS: APPEARANCE, URINE CLEAR (CLEAR); BACTERIA, URINE AUTO NEGATIVE (NEGATIVE); BILIRUBIN, URINE AUTO NEGATIVE (NEGATIVE); BLOOD, URINE BLOOD NEGATIVE (NEGATIVE); COLOR, URINE STRAW (YELLOW); GLUCOSE, URINE (UA) AUTO NEGATIVE (NEGATIVE); KETONE, URINE AUTO NEGATIVE (NEGATIVE); LEUKOCYTE ESTERASE, URINE AUTO 1+ (NEGATIVE); MUCUS, URINE SMALL (NEGATIVE); NITRITE, URINE AUTO NEGATIVE (NEGATIVE); PROTEIN, URINE AUTO NEGATIVE (NEGATIVE); RBC, URINE AUTO 0 /HPF (0-3); SPECIFIC GRAVITY URINE AUTO 1.008 (1.002-1.035); SQUAMOUS EPITHELIAL CELL UR AU 0 /HPF (0-6); UROBILINOGEN, URINE AUTO 0.2 mg/dL (0.0-2.0); WBC, URINE AUTO 3 /HPF (0-3)
== END ==
LOC: M SFHCADAM 12:08
PROVIDERS: ATTEND Physician Assistant
DX: R32 Unspecified urinary incontinence (principal)

== ENCOUNTER 2019-01-16 13:22 | Outpatient (RCR) | payer MEDICARE, MEDICAID | END 2019-01-20 | LOC: M PT 13:22 | PROVIDERS: ATTEND Physician Assistant Surgical | DX: M16.12 Unilateral primary osteoarthritis, left hip (principal) ==

== ENCOUNTER → 2019-02-20 | Outpatient (RCR) | payer MEDICARE, MEDICAID ==
[~2019-02-20] MED LIST changes: +MM S100C PO; -STOO100C PO
== END ==
LOC: M PT 01-22 09:50
PROVIDERS: ATTEND Physician Assistant Surgical
DX: Z47.89 Encounter for other orthopedic aftercare (principal); M16.12 Unilateral primary osteoarthritis, left hip; M70.62 Trochanteric bursitis, left hip

== ENCOUNTER 2019-02-22 14:04 | Emergency (ER) | payer MEDICARE, MEDICAID ==
[~2019-02-22] VITALS: Ht 152.4 cm; Wt 59.5 kg
--- NOTE | 2019-02-22 16:31 | REP ---
Clinical: Trauma. Technique: Frontal view of the pelvis with neutral and frog lateral views of the right and left hip. Findings: Age-related degenerative and arthritic changes to the pelvis and bilateral hips noted. No acute fracture or dislocation. Impression: No acute fracture or dislocation. Electronically Signed by Swapnil Ayala MD 02/22/2019 04:23 P
--- NOTE | 2019-02-22 17:00 | REP ---
CT lumbar spine without contrast: History: Pain after fall. Comparison CT imaging is from July 01, 2016. CT findings: The patient is status post trans pedicle screw and interconnecting dorsal fixation sherry fusion at L3 through L5 bilaterally. There is a large laminectomy defect at L4 on the left and a smaller L3 left laminectomy defect is visible. These findings are unchanged from the prior CT study in 2016. Lumbar vertebral body heights are preserved. There is a stable L4-5 spondylolisthesis measuring 7 mm. Degenerative disc narrowing is seen at L4-5 and to a lesser extent L3-4. There is a vacuum phenomenon with disc degeneration at L5-S1 and also at L2-3. No fracture or collapse is seen. There is irregularity of the iliac crest on the right posteriorly consistent with bone graft harvest site. There is a large cyst in the upper pole of the left kidney which is unchanged. Impression: Status post L3-L5 transpedicle screw sherry fixation and posterior element bone grafting. Post laminectomy on the left at L3 and L4. No fracture or collapse seen. Stable L4-5 7 mm spondylolisthesis unchanged from 2016. Electronically Signed by Eusebio Emery MD 02/22/2019 05:09 P
[2019-02-22 17:24] VITALS: BP 112/56
== END 2019-02-22 17:27 | disposition home or self-care (01) ==
LOC: M ED 14:04
DX: M54.5 Low back pain (principal); M25.551 Pain in right hip; M25.552 Pain in left hip; M16.0 Bilateral primary osteoarthritis of hip; M43.16 Spondylolisthesis, lumbar region; W01.0XXA Fall on same level from slipping, tripping and stumbling without subsequent striking against object, initial encounter; Y92.098 Other place in other non-institutional residence as the place of occurrence of the external cause; I25.2 Old myocardial infarction; Z86.73 Personal history of transient ischemic attack (TIA), and cerebral infarction without residual deficits; G43.909 Migraine, unspecified, not intractable, without status migrainosus; G25.81 Restless legs syndrome; J45.909 Unspecified asthma, uncomplicated; K58.9 Irritable bowel syndrome, unspecified; K57.92 Diverticulitis of intestine, part unspecified, without perforation or abscess without bleeding; E03.9 Hypothyroidism, unspecified; M48.00 Spinal stenosis, site unspecified; Z79.82 Long term (current) use of aspirin; Z88.2 Allergy status to sulfonamides
CPT/HCPCS: 72131; 73521; 99283; G0463

== ENCOUNTER 2019-02-26 11:49 | Emergency (ER) | payer MEDICARE, MEDICAID ==
[~2019-02-26] VITALS: Ht 152.4 cm; Wt 58.6 kg
[2019-02-26 11:49] VITALS: BP 133/67
[~2019-02-26 11:49] MED LIST changes: -BETA2500 PO; +BETA250027 PO; -OMEP40CA2 PO; +OMEP40CA97 PO; -VALS1TAB49 PO; +VALS40TA9 PO
--- NOTE | 2019-02-26 13:03 | REP ---
RIGHT ANKLE, FIVE VIEWS: Five views of the right ankle performed. There is a nondisplaced fracture of the distal fibula. No other acute fracture or dislocation is seen. The ankle mortise appears anatomic. There is moderate calcaneal spurring inferiorly and mild posterior calcaneal spurring. IMPRESSION: Nondisplaced fracture distal fibula. Electronically Signed by Naveed Hdz MD 02/27/2019 09:32 A
[2019-02-26] MEDS ORDERED: WHEEMIS3 XX (13:09)
== END 2019-02-26 13:24 | disposition home or self-care (01) ==
LOC: M ED 11:49
DX: S82.831A Other fracture of upper and lower end of right fibula, initial encounter for closed fracture (principal); X50.9XXA Other and unspecified overexertion or strenuous movements or postures, initial encounter; Y92.59 Other trade areas as the place of occurrence of the external cause; J45.909 Unspecified asthma, uncomplicated; E03.9 Hypothyroidism, unspecified; K58.9 Irritable bowel syndrome, unspecified; G25.81 Restless legs syndrome; G43.909 Migraine, unspecified, not intractable, without status migrainosus; E55.9 Vitamin D deficiency, unspecified; D50.9 Iron deficiency anemia, unspecified; Z79.899 Other long term (current) drug therapy; Z79.890 Hormone replacement therapy; Z79.82 Long term (current) use of aspirin; Z88.1 Allergy status to other antibiotic agents; Z88.2 Allergy status to sulfonamides; Z88.8 Allergy status to other drugs, medicaments and biological substances; Z91.048 Other nonmedicinal substance allergy status

== ENCOUNTER → 2019-03-28 | Outpatient (CLI) | payer MEDICARE ==
[~2019-03-28] MED LIST changes: +BETA2500 PO; -BETA250027 PO; +OMEP40CA2 PO; -OMEP40CA97 PO; +VALS1TAB49 PO; -VALS40TA9 PO; +WHEEMIS3 XX
[2019-03-28 09:13] LABS: BLOOD UREA NITROGEN 16 MG/DL (7-18); CREATININE FOR GFR 0.76 MG/DL (0.55-1.30); GLOMERULAR FILTRATION RATE > 60.0 (>32)
== END ==
LOC: M LAB 07:39
PROVIDERS: ATTEND Orthopaedic Surgery
DX: M51.36 Other intervertebral disc degeneration, lumbar region (principal)

== ENCOUNTER 2019-04-18 08:10 | Outpatient (RCR) | payer MEDICARE, MEDICAID | END 2019-04-22 | disposition home or self-care (01) | LOC: M PT 08:10 | PROVIDERS: ATTEND Physician Assistant | DX: M16.12 Unilateral primary osteoarthritis, left hip (principal) ==

== ENCOUNTER → 2019-05-23 | Outpatient (RCR) | payer MEDICARE, MEDICAID ==
[~2019-05-23] MED LIST changes: -OMEP40CA2 PO; +OMEP40CA97 PO
== END ==
LOC: M PT 04-25 10:32
PROVIDERS: ATTEND Physician Assistant
DX: S82.64XD Nondisplaced fracture of lateral malleolus of right fibula, subsequent encounter for closed fracture with routine healing (principal); X58.XXXD Exposure to other specified factors, subsequent encounter

== ENCOUNTER → 2019-05-28 | Outpatient (CLI) | payer MEDICARE, MEDICAID ==
[2019-05-28 07:21] LABS: HEMATOCRIT 40.1 % (36.0-47.0); HEMOGLOBIN 12.8 g/dl (12.0-15.5); MEAN CORPUSCULAR HEMOGLOBIN 33.5 pg (27.0-33.0); MEAN CORPUSCULAR HGB CONC 31.9 g/dl (32.0-36.5); PLATELET COUNT, AUTOMATED 185 10^3/uL (150-450); RED BLOOD COUNT 3.82 10^6/uL (4.00-5.40); WHITE BLOOD COUNT 5.8 10^3/uL (4.0-10.0)
[2019-05-28 08:00] LABS: ALBUMIN 3.2 GM/DL (3.2-5.2); ALT/SGPT 22 U/L (12-78); BILIRUBIN,TOTAL 0.2 MG/DL (0.2-1.0); BLOOD UREA NITROGEN 21 MG/DL (7-18); CALCIUM LEVEL 8.9 MG/DL (8.8-10.2); CARBON DIOXIDE LEVEL 27 MEQ/L (21-32); CHLORIDE LEVEL 110 MEQ/L (98-107); CHOLESTEROL LEVEL 116 MG/DL (<200); CREATININE FOR GFR 0.88 MG/DL (0.55-1.30); FERRITIN 31 NG/ML (8-252); FREE T4 0.97 NG/DL (0.76-1.46); GLOMERULAR FILTRATION RATE > 60.0 (>32); GLUCOSE, FASTING 85 MG/DL (70-100); HDL CHOLESTEROL 58 MG/DL (>40); IRON (FE) 75 UG/DL (50-170); LDL CHOLESTEROL 44 MG/DL (<100); NON-HDL-C 58 MG/DL; PERCENT SATURATION 28.5 % (13.2-45.0); POTASSIUM SERUM 4.3 MEQ/L (3.5-5.1); SODIUM LEVEL 143 MEQ/L (136-145); TOTAL IRON BINDING CAPACITY 263 UG/DL (250-450); TOTAL PROTEIN 6.2 GM/DL (6.4-8.2); TRIGLYCERIDES LEVEL 70 MG/DL (<150)
== END ==
LOC: M LAB 06:53
PROVIDERS: ATTEND Family Medicine
DX: E03.9 Hypothyroidism, unspecified (principal); D50.0 Iron deficiency anemia secondary to blood loss (chronic); E78.2 Mixed hyperlipidemia

== ENCOUNTER 2019-05-31 12:06 | Outpatient (CLI) | payer MEDICARE, MEDICAID ==
[~2019-05-31] VITALS: Ht 152.4 cm; Wt 60.9 kg
[2019-05-31 12:15] VITALS: BP 109/66
[2019-05-31] MEDS ORDERED: ZOLEDRONIC ACID 5 MG in IV 1 EA IV ONE ×4 (13:00)
[2019-05-31 13:30] VITALS: BP 101/59
== END 2019-05-31 13:30 | disposition home or self-care (01) ==
LOC: M INFU 12:06
PROVIDERS: ATTEND Family Medicine
DX: M81.0 Age-related osteoporosis without current pathological fracture (principal); Z78.0 Asymptomatic menopausal state
CPT/HCPCS: 96365; J3489

== ENCOUNTER 2019-06-18 13:17 | Outpatient (RCR) | payer MEDICARE, MEDICAID ==
[~2019-06-18 13:17] MED LIST changes: -VALS1TAB49 PO; +VALS40TA9 PO
== END 2019-06-22 ==
LOC: M OT 13:17
PROVIDERS: ATTEND Physician Assistant
DX: Z47.89 Encounter for other orthopedic aftercare (principal)

== ENCOUNTER 2019-07-15 12:37 | Outpatient (RCR) | payer MEDICARE, MEDICAID ==
[~2019-07-15 12:37] MED LIST changes: -BETA2500 PO; +BETA250027 PO
== END 2019-07-23 ==
LOC: M PT 12:37
PROVIDERS: ATTEND Physician Assistant
DX: S82.64XD Nondisplaced fracture of lateral malleolus of right fibula, subsequent encounter for closed fracture with routine healing (principal); X58.XXXD Exposure to other specified factors, subsequent encounter

== ENCOUNTER 2019-08-05 10:24 | Outpatient (RCR) | payer MEDICARE, MEDICAID | END 2019-08-23 | LOC: M PT 10:24 | PROVIDERS: ATTEND Physician Assistant | DX: Z47.89 Encounter for other orthopedic aftercare (principal) ==

== ENCOUNTER → 2019-08-08 | Outpatient (CLI) | payer MEDICARE, MEDICAID ==
[~2019-08-08] MED LIST changes: +CONRAY-43 43% 50ML VIAL (Q9960) As Ordered ONE; +LIDOCAINE 1% MDV 20ML VIAL As Ordered ONE; +methylPREDNISolone SUSP 40 MG/ML (DEPO-medrol) VIAL (J1030) As Ordered ONE
--- NOTE | 2019-08-08 15:19 | REP ---
LEFT HIP INJECTION The procedure was performed under the direct supervision of Dr. Emery. The benefits and risks including but not limited to pain infection bleeding and anaphylaxis were explained to the patient and informed consent was obtained. The left femoral neck was localized using fluoroscopic guidance. The skin was prepped and draped in a sterile fashion. 1% lidocaine was used as a local anesthetic. Using fluoroscopic guidance a 22-gauge spinal needle was inserted and advanced to the femoral neck. 0.5 ml of Conray 43 was injected to verify placement. 5 ml of a solution containing 3 ml of 1% lidocaine and 2 ml of Depo-Medrol 40 mg injected. The needle was then removed. The patient tolerated the procedure well and there were no immediate complications. Less than 6 seconds of fluoroscopy time was utilized for this procedure. Electronically Signed by ELYSE Hackett 08/08/2019 03:01 P Electronically Signed by Eusebio Emery MD 08/08/2019 03:10 P
== END ==
LOC: M RADPRO 10:06
PROVIDERS: ATTEND Physician Assistant Surgical
DX: M16.12 Unilateral primary osteoarthritis, left hip (principal)
CPT/HCPCS: 20610; 77002; J1030; Q9960

== ENCOUNTER 2019-11-22 18:06 | Emergency (ER) | payer MEDICARE, MEDICAID ==
[~2019-11-22 18:06] MED LIST changes: -CONRAY-43 43% 50ML VIAL (Q9960) As Ordered ONE; -LIDOCAINE 1% MDV 20ML VIAL As Ordered ONE; -methylPREDNISolone SUSP 40 MG/ML (DEPO-medrol) VIAL (J1030) As Ordered ONE
[2019-11-22 18:20] VITALS: BP 126/60
== END 2019-11-22 18:59 | disposition home or self-care (01) ==
LOC: M ED 18:06
DX: M25.521 Pain in right elbow (principal); G25.81 Restless legs syndrome; J45.909 Unspecified asthma, uncomplicated; K21.9 Gastro-esophageal reflux disease without esophagitis; K58.9 Irritable bowel syndrome, unspecified; G43.909 Migraine, unspecified, not intractable, without status migrainosus; E03.9 Hypothyroidism, unspecified; Z88.2 Allergy status to sulfonamides; Z88.8 Allergy status to other drugs, medicaments and biological substances; Z88.1 Allergy status to other antibiotic agents; Z91.048 Other nonmedicinal substance allergy status; Z79.899 Other long term (current) drug therapy; Z79.82 Long term (current) use of aspirin

== ENCOUNTER → 2019-11-26 | Outpatient (CLI) | payer MEDICARE, MEDICAID ==
[2019-11-26 11:15] LABS: BASO % 0.2 % (0.0-1.0); EOS # 0.1 10^3/uL (0.0-0.5); EOS % 1.2 % (0.0-3.0); HEMATOCRIT 36.9 % (36.0-47.0); HEMOGLOBIN 12.3 g/dl (12.0-15.5); LYMPH # 1.2 10^3/uL (1.5-5.0); LYMPH % 14.8 % (24.0-44.0); MEAN CORPUSCULAR HEMOGLOBIN 33.8 pg (27.0-33.0); MEAN CORPUSCULAR HGB CONC 33.3 g/dl (32.0-36.5); MEAN CORPUSCULAR VOLUME 101.4 fl (80.0-96.0); MONO # 0.9 10^3/uL (0.0-0.8); MONO % 10.9 % (0.0-5.0); NEUTROPHILS # 5.9 10^3/uL (1.5-8.5); NEUTROPHILS % 72.5 % (36.0-66.0); PLATELET COUNT, AUTOMATED 204 10^3/uL (150-450); RED BLOOD COUNT 3.64 10^6/uL (4.00-5.40); WHITE BLOOD COUNT 8.1 10^3/uL (4.0-10.0)
[2019-11-26 11:49] LABS: ERYTHROCYTE SEDIMENTATION RATE 50 mm/hr (0-30)
== END ==
LOC: M LAB 10:35
PROVIDERS: ATTEND Physician Assistant Surgical
DX: M25.521 Pain in right elbow (principal)

== ENCOUNTER 2019-11-30 10:45 | Emergency (ER) | payer MEDICARE, MEDICAID ==
[~2019-11-30] VITALS: Ht 152.4 cm; Wt 46.8 kg
[2019-11-30 10:56] VITALS: BP 110/68
[2019-11-30] MEDS ORDERED: ACETAMINOPHEN 500 MG TAB PO ONE (11:45)
--- NOTE | 2019-11-30 13:56 | REP ---
LEFT RIBS: REASON: Atraumatic pain. FINDINGS: Five views of the ribs show no acute fracture or destructive osseous lesion. The accompanying frontal view of the chest shows no cardiomegaly, infiltrates, effusions or pneumothoraces. The frontal view of the chest is essentially unchanged from 08/03/2017. IMPRESSION: Negative rib series. Electronically Signed by Mic Dotson DO 11/30/2019 02:41 P
--- NOTE | 2019-11-30 13:57 | REP ---
REASON: Atraumatic pain. COMPARISON: 04/30/2017 There is no change from prior exam. There are stable chronic changes. There is no evidence of an acute fracture, dislocation, or subluxation. IMPRESSION: Stable chronic changes. Electronically Signed by Mic Dotson DO 11/30/2019 02:40 P
--- NOTE | 2019-11-30 13:59 | REP ---
REASON: Left-sided shoulder pain. The thoracolumbar spine is sigmoid shaped. Postoperative changes are seen involving the lumbar spine with transpedicular screw placement. There is disc space narrowing at every level. The pedicles are intact bilaterally. There is no evidence of an acute abnormality. IMPRESSION: Chronic changes. Electronically Signed by Mic Dotson DO 11/30/2019 02:41 P
--- NOTE | 2019-12-01 11:16 | ECGEPIP ---
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
== END 2019-11-30 13:14 | disposition home or self-care (01) ==
LOC: M ED 10:45
DX: S46.812A Strain of other muscles, fascia and tendons at shoulder and upper arm level, left arm, initial encounter (principal); X58.XXXA Exposure to other specified factors, initial encounter; Y92.89 Other specified places as the place of occurrence of the external cause; J45.909 Unspecified asthma, uncomplicated; G43.909 Migraine, unspecified, not intractable, without status migrainosus; K21.9 Gastro-esophageal reflux disease without esophagitis; K58.9 Irritable bowel syndrome, unspecified; I73.9 Peripheral vascular disease, unspecified; M48.00 Spinal stenosis, site unspecified; Z79.899 Other long term (current) drug therapy; Z79.890 Hormone replacement therapy; Z79.82 Long term (current) use of aspirin; Z88.1 Allergy status to other antibiotic agents; Z88.2 Allergy status to sulfonamides; Z88.8 Allergy status to other drugs, medicaments and biological substances; Z91.048 Other nonmedicinal substance allergy status

== ENCOUNTER → 2019-12-03 | Outpatient (CLI) | payer MEDICARE, MEDICAID ==
[2019-12-03 11:17] LABS: BASO % 0.4 % (0.0-1.0); EOS # 0.2 10^3/uL (0.0-0.5); EOS % 3.3 % (0.0-3.0); HEMOGLOBIN 12.4 g/dl (12.0-15.5); LYMPH # 1.2 10^3/uL (1.5-5.0); LYMPH % 22.7 % (24.0-44.0); MEAN CORPUSCULAR HEMOGLOBIN 33.3 pg (27.0-33.0); MEAN CORPUSCULAR HGB CONC 33.5 g/dl (32.0-36.5); MEAN CORPUSCULAR VOLUME 99.5 fl (80.0-96.0); MONO # 0.5 10^3/uL (0.0-0.8); MONO % 8.9 % (0.0-5.0); NEUTROPHILS # 3.3 10^3/uL (1.5-8.5); NEUTROPHILS % 64.3 % (36.0-66.0); PLATELET COUNT, AUTOMATED 270 10^3/uL (150-450); RED BLOOD COUNT 3.72 10^6/uL (4.00-5.40); WHITE BLOOD COUNT 5.2 10^3/uL (4.0-10.0)
[2019-12-03 11:35] LABS: ERYTHROCYTE SEDIMENTATION RATE 44 mm/hr (0-30)
[2019-12-03 11:38] LABS: C REACTIVE PROTEIN QUANTITATIV 6.05 MG/DL (0.00-0.30); URIC ACID 4.6 MG/DL (2.6-6.0)
== END ==
LOC: M LAB 10:40
PROVIDERS: ATTEND Physician Assistant Surgical
DX: M25.521 Pain in right elbow (principal); M19.021 Primary osteoarthritis, right elbow; R79.9 Abnormal finding of blood chemistry, unspecified

== ENCOUNTER 2019-12-12 12:56 | Outpatient (RCR) | payer MEDICARE, MEDICAID | END 2019-12-22 | LOC: M PT 12:56 | PROVIDERS: ATTEND Family Medicine | DX: Z51.89 Encounter for other specified aftercare (principal); M75.82 Other shoulder lesions, left shoulder ==

== ENCOUNTER → 2019-12-24 | Outpatient (CLI) | payer MEDICARE, MEDICAID | LOC: M LAB 09:53 | PROVIDERS: ATTEND Physician Assistant Surgical | DX: M24.221 Disorder of ligament, right elbow (principal) ==

== ENCOUNTER → 2020-01-21 | Outpatient (RCR) | payer MEDICARE, MEDICAID ==
[~2020-01-21] MED LIST changes: +ALBU8.5H; +ASPI81CH48 PO; +FURO20TA2; +PANT40TA29 PO; -PANT40TA3 PO; +TESS100C PO
== END | disposition home or self-care (01) ==
LOC: M PT 12-24 12:52
PROVIDERS: ATTEND Family Medicine
DX: Z51.89 Encounter for other specified aftercare (principal); M75.82 Other shoulder lesions, left shoulder

== ENCOUNTER 2020-01-27 18:49 | Emergency (ER) | payer MEDICAID, MEDICARE ==
[~2020-01-27] VITALS: Ht 152.4 cm; Wt 59.9 kg
[~2020-01-27 18:49] MED LIST changes: -ALBU8.5H; -ASPI81CH48 PO; -FURO20TA2; -PANT40TA29 PO; +PANT40TA3 PO; -TESS100C PO
[2020-01-27] MEDS ORDERED: ASPI81CH48 PO (18:58)
[2020-01-27] MEDS ORDERED: traMADol 50 MG TAB PO ONE (19:30)
--- NOTE | 2020-01-27 19:48 | REPVR ---
PROCEDURE INFORMATION: Exam: CT Head Without Contrast Exam date and time: 01/27/2020 7:27 PM Age: 79 years old Clinical indication: Pain; Other: Chronic headaches; Additional info: Blunt head trauma, headache TECHNIQUE: Imaging protocol: Computed tomography of the head without contrast. Radiation optimization: All CT scans at this facility use at least one of these dose optimization techniques: automated exposure control; mA and/or kV adjustment per patient size (includes targeted exams where dose is matched to clinical indication); or iterative reconstruction. COMPARISON: CT Head without contrast 05/06/2017 8:39 PM FINDINGS: Brain: Decreased attenuation of the supratentorial white matter is likely secondary to chronic microvascular ischemia. No acute intracranial hemorrhage. Stable chronic left MCA infarction. Ventricles: Ventricular and subarachnoid spaces are age appropriate. Bones/joints: Unremarkable. No acute fracture. Sinuses: Visualized sinuses are unremarkable. No fluid levels. Mastoid air cells: Visualized mastoid air cells are well aerated. Vasculature: Intracranial vascular calcification. Soft tissues: Unremarkable. IMPRESSION: No acute intracranial abnormality. Electronically signed by: Ronal Issa On 01/27/2020 19:48:37 PM
[2020-01-27 21:17] VITALS: BP 128/68
== END 2020-01-27 21:34 | disposition home or self-care (01) ==
LOC: M ED 18:49
DX: G44.309 Post-traumatic headache, unspecified, not intractable (principal); I51.9 Heart disease, unspecified; Z79.51 Long term (current) use of inhaled steroids; Z79.82 Long term (current) use of aspirin; Z79.899 Other long term (current) drug therapy; Z88.1 Allergy status to other antibiotic agents; Z88.2 Allergy status to sulfonamides; Z88.8 Allergy status to other drugs, medicaments and biological substances; Z91.048 Other nonmedicinal substance allergy status

== ENCOUNTER 2020-02-13 08:48 | Outpatient (RCR) | payer MEDICARE, MEDICAID ==
[~2020-02-13 08:48] MED LIST changes: +ASPI81CH48 PO; +PANT40TA29 PO; -PANT40TA3 PO
== END 2020-02-21 ==
LOC: M PT 08:48
PROVIDERS: ATTEND Family Medicine
DX: M24.221 Disorder of ligament, right elbow (principal)

== ENCOUNTER → 2020-02-21 | Outpatient (CLI) | payer MEDICARE, MEDICAID ==
[~2020-02-21] MED LIST changes: +ALBU8.5H; +FURO20TA2; +TESS100C PO
[2020-03-27 04:59] LABS: HEMATOCRIT 39.2 % (36.0-47.0); MEAN CORPUSCULAR HEMOGLOBIN 34.1 pg (27.0-33.0); MEAN CORPUSCULAR HGB CONC 33.2 g/dl (32.0-36.5); MEAN CORPUSCULAR VOLUME 102.9 fl (80.0-96.0); PLATELET COUNT, AUTOMATED 208 10^3/uL (150-450); RED BLOOD COUNT 3.81 10^6/uL (4.00-5.40)
[2020-04-09 08:23] LABS: ALBUMIN 3.3 GM/DL (3.2-5.2); ALT/SGPT 26 U/L (12-78); BILIRUBIN,TOTAL 0.1 MG/DL (0.2-1.0); BLOOD UREA NITROGEN 19 MG/DL (7-18); CALCIUM LEVEL 8.7 MG/DL (8.8-10.2); CARBON DIOXIDE LEVEL 31 MEQ/L (21-32); CHLORIDE LEVEL 101 MEQ/L (98-107); CREATININE FOR GFR 0.97 MG/DL (0.55-1.30); FERRITIN 41 NG/ML (8-252); FREE T4 0.94 NG/DL (0.76-1.46); GLOMERULAR FILTRATION RATE 58.5 (>32); GLUCOSE, FASTING 93 MG/DL (70-100); IRON (FE) 52 UG/DL (50-170); PERCENT SATURATION 20.6 % (13.2-45.0); POTASSIUM SERUM 4.2 MEQ/L (3.5-5.1); SODIUM LEVEL 138 MEQ/L (136-145); TOTAL IRON BINDING CAPACITY 252 UG/DL (250-450); TOTAL PROTEIN 6.3 GM/DL (6.4-8.2)
== END ==
LOC: M LAB 08:39
PROVIDERS: ATTEND Physician Assistant
DX: E78.2 Mixed hyperlipidemia (principal); E03.9 Hypothyroidism, unspecified; D50.0 Iron deficiency anemia secondary to blood loss (chronic)

== ENCOUNTER 2020-03-23 11:14 | Emergency (ER) | payer MEDICARE, MEDICAID ==
[~2020-03-23] VITALS: Ht 152.4 cm; Wt 60.0 kg
[~2020-03-23 11:14] MED LIST changes: -ALBU8.5H; -FURO20TA2; -TESS100C PO
[2020-03-23] MEDS ORDERED: ALBU8.5H (12:26)
[2020-03-23] MEDS ORDERED: FURO20TA2 (12:26)
[2020-03-23 14:25] LABS: BASO % 0.3 % (0.0-1.0); EOS # 0.2 10^3/uL (0.0-0.5); EOS % 2.9 % (0.0-3.0); HEMATOCRIT 42.8 % (36.0-47.0); LYMPH # 1.3 10^3/uL (1.5-5.0); MEAN CORPUSCULAR HEMOGLOBIN 33.7 pg (27.0-33.0); MEAN CORPUSCULAR HGB CONC 32.7 g/dl (32.0-36.5); MEAN CORPUSCULAR VOLUME 102.9 fl (80.0-96.0); MONO # 0.5 10^3/uL (0.0-0.8); MONO % 8.6 % (0.0-5.0); NEUTROPHILS # 3.8 10^3/uL (1.5-8.5); NEUTROPHILS % 64.9 % (36.0-66.0); PLATELET COUNT, AUTOMATED 204 10^3/uL (150-450); RED BLOOD COUNT 4.16 10^6/uL (4.00-5.40); WHITE BLOOD COUNT 5.8 10^3/uL (4.0-10.0)
[2020-03-23 14:53] LABS: BLOOD UREA NITROGEN 17 MG/DL (7-18); CALCIUM LEVEL 9.1 MG/DL (8.8-10.2); CARBON DIOXIDE LEVEL 32 MEQ/L (21-32); CHLORIDE LEVEL 101 MEQ/L (98-107); CK-MB VALUE MASS 1.9 NG/ML (<3.6); CPK CREATINE PHOSPHOKINASE 76 U/L (26-192); CREATININE FOR GFR 0.98 MG/DL (0.55-1.30); GLOMERULAR FILTRATION RATE 57.8 (>32); GLUCOSE, FASTING 103 MG/DL (70-100); NT-PRO BNP 170 PG/ML (<450); POTASSIUM SERUM 4.5 MEQ/L (3.5-5.1); SODIUM LEVEL 136 MEQ/L (136-145); TROPONIN I < 0.02 NG/ML (< 0.10)
[2020-03-23] MEDS ORDERED: TESS100C PO (16:08)
[2020-03-23 16:29] VITALS: BP 141/70
--- NOTE | 2020-04-05 18:46 | ECGEPIP ---
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
--- NOTE | 2020-04-20 08:10 | REP ---
CHEST X-RAY CLINICAL: Cough x3 weeks. TECHNIQUE: PA and lateral. FINDINGS: Mediastinum and cardiac silhouette normal. Lung henry clear without focal consolidation, effusion, or pneumothorax. Skeletal structures are intact. Anterior cervical fixation noted along with posterior lumbar fixation and laminectomy. IMPRESSION: No acute cardiopulmonary process appreciated. MTDD
== END 2020-03-23 16:41 | disposition home or self-care (01) ==
LOC: M ED 11:14
DX: R05 Cough (principal); R94.31 Abnormal electrocardiogram [ECG] [EKG]; I51.9 Heart disease, unspecified; J45.909 Unspecified asthma, uncomplicated; G43.909 Migraine, unspecified, not intractable, without status migrainosus; K21.9 Gastro-esophageal reflux disease without esophagitis; K58.9 Irritable bowel syndrome, unspecified; E78.5 Hyperlipidemia, unspecified; E03.9 Hypothyroidism, unspecified; Z88.2 Allergy status to sulfonamides; Z88.1 Allergy status to other antibiotic agents; Z88.8 Allergy status to other drugs, medicaments and biological substances; Z79.51 Long term (current) use of inhaled steroids; Z79.899 Other long term (current) drug therapy

== ENCOUNTER → 2020-06-23 | Outpatient (REF) | payer MEDICARE, MEDICAID ==
[~2020-06-23] MED LIST changes: +ALBU8.5H; +FURO20TA2; +TESS100C PO
[2020-06-23 17:48] LABS: HEMATOCRIT 39.2 % (36.0-47.0); HEMOGLOBIN 12.5 g/dl (12.0-15.5); MEAN CORPUSCULAR HEMOGLOBIN 33.4 pg (27.0-33.0); MEAN CORPUSCULAR HGB CONC 31.9 g/dl (32.0-36.5); MEAN CORPUSCULAR VOLUME 104.8 fl (80.0-96.0); PLATELET COUNT, AUTOMATED 206 10^3/uL (150-450); RED BLOOD COUNT 3.74 10^6/uL (4.00-5.40)
[2020-06-23 18:19] LABS: ALBUMIN 3.4 GM/DL (3.2-5.2); BILIRUBIN,TOTAL 0.3 MG/DL (0.2-1.0); CALCIUM LEVEL 8.8 MG/DL (8.8-10.2); CREATININE FOR GFR 1.08 MG/DL (0.55-1.30); GLOMERULAR FILTRATION RATE 51.7 (>32); POTASSIUM SERUM 3.5 MEQ/L (3.5-5.1); TOTAL PROTEIN 6.5 GM/DL (6.4-8.2)
== END ==
LOC: M SFHCADAM 14:14
PROVIDERS: ATTEND Family Medicine
DX: L29.9 Pruritus, unspecified (principal)

== ENCOUNTER → 2020-06-30 | Outpatient (REF) | payer MEDICARE, MEDICAID ==
[~2020-06-30] MED LIST changes: +HYDR-3363 PO
== END ==
LOC: M SFHCPLAZ 16:56
PROVIDERS: ATTEND Physician Assistant
DX: J02.9 Acute pharyngitis, unspecified (principal)

== ENCOUNTER 2020-07-05 22:05 | Emergency (ER) | payer MEDICARE, MEDICAID ==
[~2020-07-05] VITALS: Ht 152.4 cm; Wt 59.9 kg
[~2020-07-05 22:05] MED LIST changes: -HYDR-3363 PO
[2020-07-05 22:07] VITALS: BP 138/84
[2020-07-05] MEDS ORDERED: HYDR-3363 PO (22:19)
[2020-07-05] MEDS ORDERED: BOOSTRIX/ADACEL VACCINE (DIPHTH/PERTUSS/ACELL/TETANUS) 0.5ML SYR IM ONE (22:45)
== END 2020-07-06 00:18 | disposition home or self-care (01) ==
LOC: M ED 22:05
DX: T23.131A Burn of first degree of multiple right fingers (nail), not including thumb, initial encounter (principal); T31.0 Burns involving less than 10% of body surface; W29.0XXA Contact with powered kitchen appliance, initial encounter; Y92.000 Kitchen of unspecified non-institutional (private) residence as the place of occurrence of the external cause; Y93.E5 Activity, floor mopping and cleaning; Y99.9 Unspecified external cause status; I25.2 Old myocardial infarction; K21.9 Gastro-esophageal reflux disease without esophagitis; Z88.1 Allergy status to other antibiotic agents; Z88.2 Allergy status to sulfonamides; Z88.8 Allergy status to other drugs, medicaments and biological substances; Z91.048 Other nonmedicinal substance allergy status; Z79.51 Long term (current) use of inhaled steroids; Z79.899 Other long term (current) drug therapy; Z23 Encounter for immunization

== ENCOUNTER → 2020-09-17 | Outpatient (REF) | payer MEDICARE, MEDICAID ==
[~2020-09-17] MED LIST changes: +HYDR-3363 PO
[2020-09-17 13:01] LABS: HEMATOCRIT 37.1 % (36.0-47.0); MEAN CORPUSCULAR HEMOGLOBIN 33.1 pg (27.0-33.0); MEAN CORPUSCULAR HGB CONC 32.3 g/dl (32.0-36.5); MEAN CORPUSCULAR VOLUME 102.5 fl (80.0-96.0); PLATELET COUNT, AUTOMATED 203 10^3/uL (150-450); RED BLOOD COUNT 3.62 10^6/uL (4.00-5.40); WHITE BLOOD COUNT 6.2 10^3/uL (4.0-10.0)
[2020-09-17 13:32] LABS: ALBUMIN 3.5 GM/DL (3.2-5.2); ALT/SGPT 28 U/L (12-78); BILIRUBIN,TOTAL 0.2 MG/DL (0.2-1.0); BLOOD UREA NITROGEN 22 MG/DL (7-18); CALCIUM LEVEL 9.2 MG/DL (8.8-10.2); CARBON DIOXIDE LEVEL 28 MEQ/L (21-32); CHLORIDE LEVEL 111 MEQ/L (98-107); CHOLESTEROL LEVEL 136 MG/DL (<200); CHOLESTEROL RISK RATIO 2.956 (<5); CREATININE FOR GFR 0.86 MG/DL (0.55-1.30); FERRITIN 37 NG/ML (8-252); FREE T4 0.95 NG/DL (0.76-1.46); GLOMERULAR FILTRATION RATE > 60.0 (>32); GLUCOSE, FASTING 88 MG/DL (70-100); HDL CHOLESTEROL 46 MG/DL (>40); IRON (FE) 61 UG/DL (50-170); LDL CHOLESTEROL 34 MG/DL (<100); NON-HDL-C 90 MG/DL; NT-PRO BNP 142 PG/ML (<450); PERCENT SATURATION 24.2 % (13.2-45.0); POTASSIUM SERUM 4.2 MEQ/L (3.5-5.1); SODIUM LEVEL 144 MEQ/L (136-145); TOTAL IRON BINDING CAPACITY 252 UG/DL (250-450); TOTAL PROTEIN 6.1 GM/DL (6.4-8.2); TRIGLYCERIDES LEVEL 280 MG/DL (<150)
== END ==
LOC: M SFHCADAM 11:19
PROVIDERS: ATTEND Family Medicine
DX: D50.0 Iron deficiency anemia secondary to blood loss (chronic) (principal); E78.2 Mixed hyperlipidemia; E03.9 Hypothyroidism, unspecified; R60.0 Localized edema

== ENCOUNTER 2021-01-12 13:47 | Emergency (ER) | payer MEDICARE, MEDICAID ==
[~2021-01-12] VITALS: Ht 152.4 cm; Wt 57.7 kg
[~2021-01-12 13:47] MED LIST changes: +GABA-283 PO; -GABA-845 PO; +OMEP40CA4 PO; -OMEP40CA97 PO
[2021-01-12 16:32] LABS: BASO % 0.5 % (0.0-1.0); EOS # 0.2 10^3/uL (0.0-0.5); EOS % 2.3 % (0.0-3.0); HEMATOCRIT 37.7 % (36.0-47.0); HEMOGLOBIN 12.2 g/dl (12.0-15.5); LYMPH # 1.4 10^3/uL (1.5-5.0); LYMPH % 16.8 % (24.0-44.0); MEAN CORPUSCULAR HEMOGLOBIN 32.3 pg (27.0-33.0); MEAN CORPUSCULAR HGB CONC 32.4 g/dl (32.0-36.5); MEAN CORPUSCULAR VOLUME 99.7 fl (80.0-96.0); MONO # 0.8 10^3/uL (0.0-0.8); MONO % 9.5 % (2.0-8.0); NEUTROPHILS # 5.7 10^3/uL (1.5-8.5); NEUTROPHILS % 70.3 % (36.0-66.0); PLATELET COUNT, AUTOMATED 218 10^3/uL (150-450); RED BLOOD COUNT 3.78 10^6/uL (4.00-5.40); WHITE BLOOD COUNT 8.1 10^3/uL (4.0-10.0)
[2021-01-12 16:48] LABS: CALCIUM LEVEL 8.7 MG/DL (8.8-10.2); CREATININE FOR GFR 0.97 MG/DL (0.55-1.30); GLOMERULAR FILTRATION RATE 58.5 (>32); MAGNESIUM LEVEL 1.9 MG/DL (1.8-2.4); POTASSIUM SERUM 3.6 MEQ/L (3.5-5.1)
[2021-01-12 16:58] LABS: FREE T4 0.88 NG/DL (0.76-1.46); THYROID STIMULATING HORMONE 4.7 uIU/ML (0.358-3.740)
[2021-01-12 17:18] VITALS: BP 106/61
== END 2021-01-12 17:43 | disposition home or self-care (01) ==
LOC: M ED 13:47
DX: Z04.89 Encounter for examination and observation for other specified reasons (principal); I51.9 Heart disease, unspecified; Z79.51 Long term (current) use of inhaled steroids; Z88.2 Allergy status to sulfonamides; Z88.8 Allergy status to other drugs, medicaments and biological substances; Z88.1 Allergy status to other antibiotic agents; Z79.899 Other long term (current) drug therapy

== ENCOUNTER 2021-01-19 14:39 | Outpatient (RCR) | payer MEDICARE, MEDICAID | END 2021-01-20 | LOC: M PT 14:39 | PROVIDERS: ATTEND Orthopaedic Surgery | DX: M72.2 Plantar fascial fibromatosis (principal) ==

== ENCOUNTER 2021-02-18 10:37 | Outpatient (RCR) | payer MEDICARE, MEDICAID ==
[~2021-02-18 10:37] MED LIST changes: -ALBU8.5H; +ALBU8.5H INH; -LEVO500T3; +LEVO500T4
== END 2021-02-20 ==
LOC: M PT 10:37
PROVIDERS: ATTEND Orthopaedic Surgery
DX: M72.2 Plantar fascial fibromatosis (principal)

== ENCOUNTER 2021-03-02 15:15 | Emergency (ER) | payer MEDICARE, MEDICAID ==
[~2021-03-02] VITALS: Ht 152.4 cm; Wt 57.5 kg
[~2021-03-02 15:15] MED LIST changes: +ALBU8.5H; -ALBU8.5H INH; +LEVO500T3; -LEVO500T4
[2021-03-02] MEDS ORDERED: diphenhydrAMINE CREAM 30GM TOP STA (21:16)
[2021-03-02] MEDS ORDERED: BACITRACIN OINTMENT 30GM TUBE TOP STA (21:16)
[2021-03-02 21:23] VITALS: BP 145/69
== END 2021-03-02 22:09 | disposition home or self-care (01) ==
LOC: M ED 15:15
DX: L29.9 Pruritus, unspecified (principal); I25.2 Old myocardial infarction; J45.909 Unspecified asthma, uncomplicated; Z88.1 Allergy status to other antibiotic agents; Z88.2 Allergy status to sulfonamides; Z91.048 Other nonmedicinal substance allergy status

== ENCOUNTER → 2021-03-11 | Outpatient (CLI) | payer MEDICARE, MEDICAID ==
[2021-03-11 17:40] LABS: BASO # 0.1 10^3/uL (0.0-0.2); BASO % 0.5 % (0.0-1.0); EOS # 0.2 10^3/uL (0.0-0.5); EOS % 1.5 % (0.0-3.0); HEMATOCRIT 38.1 % (36.0-47.0); HEMOGLOBIN 12.5 g/dl (12.0-15.5); LYMPH # 1.6 10^3/uL (1.5-5.0); LYMPH % 13.5 % (24.0-44.0); MEAN CORPUSCULAR HEMOGLOBIN 32.3 pg (27.0-33.0); MEAN CORPUSCULAR HGB CONC 32.8 g/dl (32.0-36.5); MEAN CORPUSCULAR VOLUME 98.4 fl (80.0-96.0); MONO # 0.8 10^3/uL (0.0-0.8); MONO % 6.5 % (2.0-8.0); NEUTROPHILS # 9.2 10^3/uL (1.5-8.5); NEUTROPHILS % 77.6 % (36.0-66.0); PLATELET COUNT, AUTOMATED 257 10^3/uL (150-450); RED BLOOD COUNT 3.87 10^6/uL (4.00-5.40); WHITE BLOOD COUNT 11.9 10^3/uL (4.0-10.0)
[2021-03-11 18:09] LABS: ALBUMIN 3.2 GM/DL (3.2-5.2); BILIRUBIN,TOTAL 0.2 MG/DL (0.2-1.0); C REACTIVE PROTEIN QUANTITATIV 1.04 MG/DL (0.00-0.30); CALCIUM LEVEL 9.1 MG/DL (8.8-10.2); CREATININE FOR GFR 1.1 MG/DL (0.55-1.30); GLOMERULAR FILTRATION RATE 50.6 (>32); MAGNESIUM LEVEL 1.8 MG/DL (1.8-2.4); TOTAL PROTEIN 6.8 GM/DL (6.4-8.2)
[2021-03-11 18:42] LABS: ERYTHROCYTE SEDIMENTATION RATE 13 mm/hr (0-30)
== END ==
LOC: M PLALAB 15:30
PROVIDERS: ATTEND Physician Assistant
DX: R21 Rash and other nonspecific skin eruption (principal)

== ENCOUNTER → 2021-03-16 | Outpatient (CLI) | payer MEDICARE, MEDICAID ==
[2021-03-16 16:49] LABS: BASO % 0.4 % (0.0-1.0); EOS # 0.4 10^3/uL (0.0-0.5); EOS % 4.3 % (0.0-3.0); HEMATOCRIT 36.8 % (36.0-47.0); LYMPH # 1.7 10^3/uL (1.5-5.0); LYMPH % 20.9 % (24.0-44.0); MEAN CORPUSCULAR HEMOGLOBIN 32.5 pg (27.0-33.0); MEAN CORPUSCULAR HGB CONC 32.6 g/dl (32.0-36.5); MEAN CORPUSCULAR VOLUME 99.7 fl (80.0-96.0); MONO # 0.8 10^3/uL (0.0-0.8); MONO % 9.3 % (2.0-8.0); NEUTROPHILS # 5.4 10^3/uL (1.5-8.5); NEUTROPHILS % 64.6 % (36.0-66.0); PLATELET COUNT, AUTOMATED 247 10^3/uL (150-450); RED BLOOD COUNT 3.69 10^6/uL (4.00-5.40); WHITE BLOOD COUNT 8.3 10^3/uL (4.0-10.0)
[2021-03-16 17:03] LABS: BILIRUBIN,TOTAL 0.2 MG/DL (0.2-1.0); C REACTIVE PROTEIN QUANTITATIV 1.6 MG/DL (0.00-0.30); CALCIUM LEVEL 9.5 MG/DL (8.8-10.2); CREATININE FOR GFR 1.1 MG/DL (0.55-1.30); GLOMERULAR FILTRATION RATE 50.5 (>32); MAGNESIUM LEVEL 1.8 MG/DL (1.8-2.4); TOTAL PROTEIN 6.6 GM/DL (6.4-8.2)
[2021-03-16 17:14] LABS: INR 0.94
[2021-03-16 17:15] LABS: PARTIAL THROMBOPLASTIN TIME 33.3 SECONDS (25.9-37.0)
[2021-03-16 17:48] LABS: ERYTHROCYTE SEDIMENTATION RATE 14 mm/hr (0-30)
== END ==
LOC: M LAB 14:52
PROVIDERS: ATTEND Physician Assistant
DX: R21 Rash and other nonspecific skin eruption (principal)

== ENCOUNTER 2021-03-18 13:06 | Outpatient (RCR) | payer MEDICARE, MEDICAID | END 2021-03-23 | LOC: M PT 13:06 | PROVIDERS: ATTEND Orthopaedic Surgery | DX: M77.12 Lateral epicondylitis, left elbow (principal); M72.2 Plantar fascial fibromatosis ==

== ENCOUNTER → 2021-03-24 | Outpatient (REF) | payer MEDICARE, MEDICAID ==
[~2021-03-24] MED LIST changes: +PRED10TA2 PO
[2021-03-24 13:32] LABS: BASO # 0.1 10^3/uL (0.0-0.2); BASO % 0.5 % (0.0-1.0); EOS % 0.1 % (0.0-3.0); HEMATOCRIT 36.7 % (36.0-47.0); HEMOGLOBIN 12.1 g/dl (12.0-15.5); LYMPH # 1.1 10^3/uL (1.5-5.0); LYMPH % 10.4 % (24.0-44.0); MEAN CORPUSCULAR HEMOGLOBIN 33.1 pg (27.0-33.0); MEAN CORPUSCULAR VOLUME 100.3 fl (80.0-96.0); MONO # 0.6 10^3/uL (0.0-0.8); NEUTROPHILS # 8.7 10^3/uL (1.5-8.5); NEUTROPHILS % 82.3 % (36.0-66.0); PLATELET COUNT, AUTOMATED 252 10^3/uL (150-450); RED BLOOD COUNT 3.66 10^6/uL (4.00-5.40); WHITE BLOOD COUNT 10.5 10^3/uL (4.0-10.0)
[2021-03-24 14:14] LABS: ERYTHROCYTE SEDIMENTATION RATE 18 mm/hr (0-30)
[2021-03-24 14:18] LABS: ALBUMIN 3.1 GM/DL (3.2-5.2); BILIRUBIN,TOTAL 0.3 MG/DL (0.2-1.0); C REACTIVE PROTEIN QUANTITATIV 2.5 MG/DL (0.00-0.30); CALCIUM LEVEL 9.5 MG/DL (8.8-10.2); CREATININE FOR GFR 1.12 MG/DL (0.55-1.30); GLOMERULAR FILTRATION RATE 49.5 (>32); TOTAL PROTEIN 6.7 GM/DL (6.4-8.2)
[2021-03-25 17:07] LABS: Lyme Disease IgG/IgM Antibodie <0.91 ISR (0.00-0.90); Lyme Disease IgM Ab Quantitati <0.80 index (0.00-0.79)
== END ==
LOC: M SFHCADAM 10:40
PROVIDERS: ATTEND Physician Assistant
DX: M54.5 Low back pain (principal); G89.29 Other chronic pain; R79.82 Elevated C-reactive protein (CRP)
CPT/HCPCS: 80053; 85025; 85652; 86140; 86617; G0463

== ENCOUNTER 2021-03-25 13:30 | Outpatient (RCR) | payer MEDICARE, MEDICAID ==
[~2021-03-25 13:30] MED LIST changes: -PRED10TA2 PO
[2021-03-29] MEDS ORDERED: PRED10TA2 PO (15:31)
== END 2021-04-22 ==
LOC: M PT 13:30
PROVIDERS: ATTEND Orthopaedic Surgery
DX: M77.12 Lateral epicondylitis, left elbow (principal)

== ENCOUNTER 2021-03-29 13:15 | Emergency (ER) | payer MEDICARE, MEDICAID ==
[~2021-03-29] VITALS: Ht 152.4 cm; Wt 56.7 kg
[2021-03-29] MEDS ORDERED: KETOROLAC 30 MG/ML 1ML VIAL IM ONE (15:00)
[2021-03-29] MEDS ORDERED: PRED10TA2 PO (15:31)
[2021-03-29] MEDS ORDERED: predniSONE 10 MG TAB PO ONE (15:35)
[2021-03-29 15:51] VITALS: BP 106/50
== END 2021-03-29 15:53 | disposition home or self-care (01) ==
LOC: M ED 13:15
DX: M19.90 Unspecified osteoarthritis, unspecified site (principal); I10 Essential (primary) hypertension; Z88.8 Allergy status to other drugs, medicaments and biological substances; Z88.1 Allergy status to other antibiotic agents; Z88.2 Allergy status to sulfonamides; Z91.048 Other nonmedicinal substance allergy status
CPT/HCPCS: 80047; 85652; 96372; 99284; J1885; J7512

== ENCOUNTER → 2021-04-07 | Outpatient (REF) | payer MEDICARE, MEDICAID ==
[~2021-04-07] MED LIST changes: +PRED10TA2 PO
[2021-04-07 17:37] LABS: ALBUMIN 2.7 GM/DL (3.2-5.2); BILIRUBIN,TOTAL 0.2 MG/DL (0.2-1.0); C REACTIVE PROTEIN QUANTITATIV 6.2 MG/DL (0.00-0.30); CALCIUM LEVEL 8.8 MG/DL (8.8-10.2); CREATININE FOR GFR 1.02 MG/DL (0.55-1.30); GLOMERULAR FILTRATION RATE 55.1 (>32); POTASSIUM SERUM 3.2 MEQ/L (3.5-5.1)
[2021-04-07 17:39] LABS: BASO % 0.4 % (0.0-1.0); EOS # 0.2 10^3/uL (0.0-0.5); EOS % 1.9 % (0.0-3.0); HEMATOCRIT 34.6 % (36.0-47.0); HEMOGLOBIN 11.1 g/dl (12.0-15.5); LYMPH # 1.2 10^3/uL (1.5-5.0); LYMPH % 10.4 % (24.0-44.0); MEAN CORPUSCULAR HEMOGLOBIN 32.4 pg (27.0-33.0); MEAN CORPUSCULAR HGB CONC 32.1 g/dl (32.0-36.5); MEAN CORPUSCULAR VOLUME 100.9 fl (80.0-96.0); MONO # 0.8 10^3/uL (0.0-0.8); MONO % 7.2 % (2.0-8.0); NEUTROPHILS # 8.9 10^3/uL (1.5-8.5); NEUTROPHILS % 79.6 % (36.0-66.0); RED BLOOD COUNT 3.43 10^6/uL (4.00-5.40); WHITE BLOOD COUNT 11.2 10^3/uL (4.0-10.0)
[2021-04-09 18:08] LABS: FREE KAPPA LIGHT CHAINS SERUM 40.9 mg/L (3.3-19.4); FREE LAMBDA LIGHT CHAINS SERUM 30.2 mg/L (5.7-26.3); KAPPA/LAMBDA RATIO SERUM 1.35 (0.26-1.65)
== END ==
LOC: M SFHCADAM 14:28
PROVIDERS: ATTEND Physician Assistant
DX: R79.82 Elevated C-reactive protein (CRP) (principal); M54.5 Low back pain; G89.29 Other chronic pain
CPT/HCPCS: 80053; 83883; 85025; 86140; G0463

== ENCOUNTER → 2021-04-09 | Outpatient (CLI) | payer MEDICARE, MEDICAID ==
--- NOTE | 2021-04-09 20:21 | REPVR ---
PROCEDURE INFORMATION: Exam: MR Lumbar Spine Without and With Contrast Exam date and time: 04/09/2021 2:37 PM Age: 81 years old Clinical indication: Prior surgery; Surgery date: 6+ months; Patient HX: Chronic low back pain, HX fusion; Additional info: Elevated crp, lbp, chronic pain TECHNIQUE: Imaging protocol: Multiplanar magnetic resonance images of the lumbar spine without and with intravenous contrast. Contrast material: PROHANCE; Contrast volume: 6 ml; Contrast route: INTRAVENOUS (IV); COMPARISON: CT Spine, lumbar w/o contrast 02/22/2019 3:54 PM FINDINGS: Chronic postoperative changes compatible with posterior instrumented fusion from L3 through L5. Prominent Modic type 1 edematous and enhancing degenerative endplate change at L2-L3. No evidence of discogenic edema. 0.7 cm grade 1 anterolisthesis of L4 on L5. 0.3 cm grade 1 anterolisthesis of L2 on L3. Lumbar vertebral body heights are maintained. No cord compression. No abnormal cord signal. Conus medullaris terminates at the L1 level. Paravertebral soft tissues are unremarkable. Bilateral T2 hyperintense renal cysts. L1-L2: Broad-based disc bulge and facet hypertrophy cause mild canal narrowing and mild bilateral foraminal narrowing. L2-L3: Combination of anterolisthesis, broad-based disc bulge, and facet hypertrophy cause moderate to severe canal narrowing with slight crowding of the cauda equina. Moderate bilateral foraminal narrowing. L3-L4: Broad-based disc bulge and facet hypertrophy cause mild canal narrowing and mild bilateral foraminal narrowing. L4-L5: Combination of anterolisthesis, broad-based disc bulge, and facet hypertrophy cause mild canal narrowing and mild bilateral foraminal narrowing. L5-S1: Broad-based disc bulge and facet hypertrophy cause mild canal narrowing with mild left and moderate right foraminal narrowing. IMPRESSION: Multilevel chronic postoperative and advanced spondylotic changes of the lumbar spine, as detailed above. Electronically signed by: Jim Parr On 04/09/2021 20:21:33 PM
== END ==
LOC: M PLARAD 11:10
PROVIDERS: ATTEND Physician Assistant
DX: R79.82 Elevated C-reactive protein (CRP) (principal); G89.29 Other chronic pain; M47.816 Spondylosis without myelopathy or radiculopathy, lumbar region; M51.26 Other intervertebral disc displacement, lumbar region; M43.16 Spondylolisthesis, lumbar region; M48.061 Spinal stenosis, lumbar region without neurogenic claudication

== ENCOUNTER → 2021-04-29 | Outpatient (REF) | payer MEDICARE, MEDICAID ==
[2021-04-29 17:42] LABS: C REACTIVE PROTEIN QUANTITATIV 4.34 MG/DL (0.00-0.30); CALCIUM LEVEL 9.4 MG/DL (8.8-10.2); CREATININE FOR GFR 1.2 MG/DL (0.55-1.30); GLOMERULAR FILTRATION RATE 45.7 (>32); MAGNESIUM LEVEL 1.5 MG/DL (1.8-2.4); POTASSIUM SERUM 4.2 MEQ/L (3.5-5.1)
== END ==
LOC: M SFHCADAM 11:12
PROVIDERS: ATTEND Family Medicine
DX: E87.6 Hypokalemia (principal); M35.3 Polymyalgia rheumatica

== ENCOUNTER → 2021-06-02 | Outpatient (CLI) | payer MEDICARE, MEDICAID ==
[~2021-06-02] MED LIST changes: -ALBU8.5H; +ALBU8.5H INH; +ALLE180T42 PO; +ASCO500T PO; +BAYE325T12 PO; +CLOP75TA2 PO; +D32000CA PO; +FAMO40TA3 PO; +FURO40TA2 PO; +MED REC COMMENT; +MUCI600T31 PO; +MULT-40 PO; +POTA1TAB14 PO; +PRESCAP PO; +RISATAB3 PO; +TIZA4TAB4 PO
--- NOTE | 2021-06-02 11:27 | REP ---
INDICATION: PAIN OF TOE OF RIGHT FOOT. COMPARISON: 01/08/2014 TECHNIQUE: Four views FINDINGS: Once again, there are advanced degenerative changes seen throughout the foot with erosive arthritic changes seen involving the 1st metatarsal phalangeal joint and the proximal interphalangeal joints of digits 2 and 3 all increased from the prior exam. The bones are demineralized. There are plantar and retrocalcaneal heel spur status quo. There is no evidence of an acute fracture. IMPRESSION: Chronic changes as described above. <Electronically signed by Mic Dotson > 06/02/21 [id number]
== END ==
LOC: M ADAMS 10:24
PROVIDERS: ATTEND Physician Assistant
DX: M19.071 Primary osteoarthritis, right ankle and foot (principal); M77.31 Calcaneal spur, right foot; M79.674 Pain in right toe(s)

== ENCOUNTER → 2021-06-02 | Outpatient (REF) | payer MEDICARE, MEDICAID ==
[2021-06-02 13:04] LABS: BASO % 0.5 % (0.0-1.0); EOS # 0.8 10^3/uL (0.0-0.5); EOS % 10.4 % (0.0-3.0); HEMATOCRIT 37.7 % (36.0-47.0); LYMPH % 13.2 % (24.0-44.0); MEAN CORPUSCULAR HEMOGLOBIN 31.3 pg (27.0-33.0); MEAN CORPUSCULAR HGB CONC 31.8 g/dl (32.0-36.5); MEAN CORPUSCULAR VOLUME 98.2 fl (80.0-96.0); MONO # 0.8 10^3/uL (0.0-0.8); MONO % 10.9 % (2.0-8.0); NEUTROPHILS % 64.6 % (36.0-66.0); PLATELET COUNT, AUTOMATED 281 10^3/uL (150-450); RED BLOOD COUNT 3.84 10^6/uL (4.00-5.40); WHITE BLOOD COUNT 7.7 10^3/uL (4.0-10.0)
[2021-06-02 13:26] LABS: C REACTIVE PROTEIN QUANTITATIV 7.62 MG/DL (0.00-0.30); URIC ACID 4.5 MG/DL (2.6-6.0)
[2021-06-02 13:49] LABS: ERYTHROCYTE SEDIMENTATION RATE 40 mm/hr (0-30)
== END ==
LOC: M SFHCADAM 10:07
PROVIDERS: ATTEND Physician Assistant
DX: M79.674 Pain in right toe(s) (principal)

== ENCOUNTER 2021-06-11 16:04 | Inpatient (IN) | payer MEDICARE, MEDICAID ==
[~2021-06-11] VITALS: Ht 160 cm; Wt 59.3 kg
[~2021-06-11 16:04] MED LIST changes: -ALLE180T42 PO; -ASCO500T PO; -BAYE325T12 PO; -CLOP75TA2 PO; -D32000CA PO; -FAMO40TA3 PO; -FURO40TA2 PO; -LEVO500T3; +LEVO500T4; -MED REC COMMENT; -MUCI600T31 PO; -MULT-40 PO; -POTA1TAB14 PO; -PRESCAP PO; -RISATAB3 PO; -TIZA4TAB4 PO
[2021-06-11] MEDS ORDERED: NS 500 ML IV ONE (16:30)
[2021-06-11 17:00] LABS: ABG BASE EXCESS -0.2 (-2.0-2.0); ABG HCO3 22.9 MEQ/L (22.0-26.0); ABG O2 SATURATION 98.2 % (95.0-99.0); ABG PARTIAL PRESSURE CO2 31.8 mmHg (35.0-45.0); ABG PARTIAL PRESSURE O2 120.1 mmHg (75.0-100.0); ABG STANDARD HCO3 24.4 MEQ/L (22.0-26.0); ABG TOTAL CO2 23.9 MEQ/L (23.0-31.0); ABG pH (ARTERIAL) 7.476 UNITS (7.350-7.450)
[2021-06-11 17:04] LABS: BASO % 0.2 % (0.0-1.0); EOS % 0.1 % (0.0-3.0); HEMATOCRIT 33.5 % (36.0-47.0); HEMOGLOBIN 10.9 g/dl (12.0-15.5); LYMPH # 0.5 10^3/uL (1.5-5.0); LYMPH % 4.4 % (24.0-44.0); MEAN CORPUSCULAR HEMOGLOBIN 31.3 pg (27.0-33.0); MEAN CORPUSCULAR HGB CONC 32.5 g/dl (32.0-36.5); MEAN CORPUSCULAR VOLUME 96.3 fl (80.0-96.0); MONO # 0.6 10^3/uL (0.0-0.8); MONO % 4.9 % (2.0-8.0); NEUTROPHILS # 10.2 10^3/uL (1.5-8.5); NEUTROPHILS % 89.8 % (36.0-66.0); PLATELET COUNT, AUTOMATED 205 10^3/uL (150-450); RED BLOOD COUNT 3.48 10^6/uL (4.00-5.40); WHITE BLOOD COUNT 11.3 10^3/uL (4.0-10.0)
[2021-06-11 17:24] LABS: CK-MB VALUE MASS 4.6 NG/ML (<3.6); CPK CREATINE PHOSPHOKINASE 254 U/L (26-192); MB/CK RELATIVE INDEX 1.81 (< OR =4); TROPONIN I < 0.02 NG/ML (< 0.10)
[2021-06-11 17:31] LABS: ACETAMINOPHEN LEVEL < 2.0 UG/ML (10.0-30.0); ALBUMIN 2.4 GM/DL (3.2-5.2); ALT/SGPT 29 U/L (12-78); BILIRUBIN,DIRECT 0.1 MG/DL (0.0-0.2); BILIRUBIN,TOTAL 0.3 MG/DL (0.2-1.0); BLOOD UREA NITROGEN 26 MG/DL (7-18); CALCIUM LEVEL 8.5 MG/DL (8.8-10.2); CARBON DIOXIDE LEVEL 25 MEQ/L (21-32); CHLORIDE LEVEL 110 MEQ/L (98-107); CREATININE FOR GFR 1.21 MG/DL (0.55-1.30); ETHYL ALCOHOL (ETHANOL) < 0.003 % (0.000-0.010); GLOMERULAR FILTRATION RATE 45.2 (>32); GLUCOSE, FASTING 142 MG/DL (70-100); PHENYTOIN (DILANTIN) 6.3 UG/ML (10.0-20.0); POTASSIUM SERUM 3.8 MEQ/L (3.5-5.1); SALICYLATE LEVEL < 1.7 MG/DL (5.0-30.0); SODIUM LEVEL 142 MEQ/L (136-145); THYROID STIMULATING HORMONE 0.666 uIU/ML (0.358-3.740); TOTAL PROTEIN 6.1 GM/DL (6.4-8.2)
[2021-06-11 17:34] LABS: AMPHETAMINES LEVEL URINE NEGATIVE (NEGATIVE); BARBITURATES URINE NEGATIVE (NEGATIVE); BENZODIAZEPINES URINE NEGATIVE (NEGATIVE); CANNABINOIDS URINE NEGATIVE (NEGATIVE); COCAINE METABOLITE URINE NEGATIVE (NEGATIVE); METHADONE URINE NEGATIVE (NEGATIVE); OPIATES URINE NEGATIVE (NEGATIVE); PHENCYCLIDINE URINE NEGATIVE (NEGATIVE)
[2021-06-11] MEDS ORDERED: ACETAMINOPHEN 650 MG SUPP PR ONE (17:35)
[2021-06-11 17:44] LABS: RSV AMPLIFICATION NEGATIVE (NEGATIVE)
[2021-06-11 17:51] LABS: ERYTHROCYTE SEDIMENTATION RATE 48 mm/hr (0-30)
[2021-06-11] MEDS ORDERED: ISOVUE-370 76% 100ML VIAL As Ordered ONE (17:57)
[2021-06-11] MEDS ORDERED: MUCI600T31 PO (19:46)
[2021-06-11] MEDS ORDERED: TIZA10TA PO (19:46)
[2021-06-11] MEDS ORDERED: MULT-40 PO (19:46)
[2021-06-11] MEDS ORDERED: D32000CA PO (19:46)
[2021-06-11] MEDS ORDERED: ASCO500T PO (19:46)
[2021-06-11] MEDS ORDERED: FURO40TA2 PO (19:46)
[2021-06-11] MEDS ORDERED: BAYE325T12 PO (19:46)
[2021-06-11] MEDS ORDERED: RISATAB3 PO (19:53)
[2021-06-11] MEDS ORDERED: ALLE180T42 PO (19:53)
[2021-06-11] MEDS ORDERED: FAMO40TA3 PO (19:53)
[2021-06-11] MEDS ORDERED: MYRB50TA PO (19:53)
[2021-06-11] MEDS ORDERED: PHEN100C PO (19:53)
[2021-06-11] MEDS ORDERED: PRESCAP PO (19:53)
[2021-06-11] MEDS ORDERED: POTA1TAB14 PO (19:53)
[2021-06-11] MEDS ORDERED: MED REC COMMENT (19:56)
[2021-06-11] MEDS ORDERED: HOME MED LIST COMPLETE! XX SCH (20:00)
[2021-06-11] MEDS ORDERED: ACETAMINOPHEN TAB 650MG DOSE (2X325MG) PO PRN (20:20)
[2021-06-11] MEDS ORDERED: ALBUTEROL 90 MCG/ACT 8GM HFA INHALER INH PRN (20:40)
[2021-06-11] MEDS ORDERED: ATORVASTATIN 20 MG TAB PO SCH (21:00)
[2021-06-11] MEDS: PHENYTOIN ER 100 MG CAP PO SCH (21:00)
[2021-06-11] MEDS ORDERED: FAMOTIDINE 20 MG TAB PO SCH (21:00)
[2021-06-11] MEDS: NORTRIPTYLINE 25 MG CAP PO SCH (21:00)
[2021-06-11] MEDS ORDERED: POTASSIUM CHLORIDE 10MEQ SR TABLET PO SCH (21:00)
[2021-06-11] MEDS: POTASSIUM CHLORIDE 10MEQ SR TABLET PO SCH (21:00)
[2021-06-11] MEDS ORDERED: guaiFENesin ER 600 MG TAB PO SCH (21:00)
[2021-06-12 00:24] LABS: PROTHROMBIN TIME 13.6 SECONDS (12.7-14.5)
[2021-06-12] MEDS: tiZANidine 4 MG TAB PO SCH ×2 (00:49→09:37)
[2021-06-12] MEDS: SUCRALFATE 1 GM TAB PO SCH ×5 (00:49→21:28)
[2021-06-12] MEDS: GABAPENTIN 400MG CAP PO SCH ×4 (00:49→21:26)
[2021-06-12] MEDS: LACTOBACILLUS ACIDOPHILUS CAP (BACID) PO SCH ×3 (00:49→21:25)
[2021-06-12] MEDS: MONTELUKAST 10 MG TAB PO SCH ×2 (00:49→21:27)
[2021-06-12] MEDS ORDERED: LR 1,000 ML IV ONE (02:05)
[2021-06-12 07:17] LABS: BASO % 0.2 % (0.0-1.0); EOS # 0.3 10^3/uL (0.0-0.5); EOS % 5.2 % (0.0-3.0); HEMATOCRIT 29.7 % (36.0-47.0); HEMOGLOBIN 9.7 g/dl (12.0-15.5); LYMPH % 16.7 % (24.0-44.0); MEAN CORPUSCULAR HEMOGLOBIN 31.8 pg (27.0-33.0); MEAN CORPUSCULAR HGB CONC 32.7 g/dl (32.0-36.5); MEAN CORPUSCULAR VOLUME 97.4 fl (80.0-96.0); MONO # 0.5 10^3/uL (0.0-0.8); MONO % 9.1 % (2.0-8.0); NEUTROPHILS % 68.5 % (36.0-66.0); PLATELET COUNT, AUTOMATED 183 10^3/uL (150-450); RED BLOOD COUNT 3.05 10^6/uL (4.00-5.40); WHITE BLOOD COUNT 5.8 10^3/uL (4.0-10.0)
[2021-06-12 07:50] LABS: BLOOD UREA NITROGEN 21 MG/DL (7-18); CALCIUM LEVEL 7.9 MG/DL (8.8-10.2); CARBON DIOXIDE LEVEL 25 MEQ/L (21-32); CHLORIDE LEVEL 112 MEQ/L (98-107); CREATININE FOR GFR 0.82 MG/DL (0.55-1.30); GLOMERULAR FILTRATION RATE > 60.0 (>32); GLUCOSE, FASTING 86 MG/DL (70-100); MAGNESIUM LEVEL 1.7 MG/DL (1.8-2.4); POTASSIUM SERUM 3.8 MEQ/L (3.5-5.1); SODIUM LEVEL 144 MEQ/L (136-145)
[2021-06-12 08:00] VITALS: BP 121/58
[2021-06-12] MEDS ORDERED: ASCORBIC ACID 500 MG TAB PO SCH (09:00)
[2021-06-12] MEDS ORDERED: FUROSEMIDE 40 MG TAB PO SCH (09:00)
[2021-06-12] MEDS ORDERED: ASPIRIN 81MG ENTERIC TABLET PO SCH (09:00)
[2021-06-12] MEDS ORDERED: MYRBETRIQ 50MG TABLET (PATIENT'S OWN MED) PO SCH (09:00)
[2021-06-12] MEDS: OCUVITE 1 TAB PO SCH (09:36)
[2021-06-12] MEDS: VITAMIN D 1,000 INTERNATIONAL UNITS TABLET PO SCH (09:37)
[2021-06-12] MEDS: LEVOTHYROXINE 112MCG TABLET (0.112MG) PO SCH (09:39)
[2021-06-12] MEDS: HEPARIN SOD (PORCINE) 5000UNITS/ML 1ML VIAL/SYRINGE SC SCH ×3 (09:39→21:25)
[2021-06-12] MEDS: PHENYTOIN ER 100 MG CAP PO SCH ×2 (09:41→21:28)
[2021-06-12] MEDS: predniSONE 20 MG TAB PO SCH (09:41)
[2021-06-12] MEDS ORDERED: MAGNESIUM OXIDE 400MG TAB (MAG-OX) PO ONE (11:00)
[2021-06-12 12:00] VITALS: BP 101/56
[2021-06-12] MEDS ORDERED: CLOPIDOGREL 75 MG TAB PO ONE (15:10)
[2021-06-12 16:00] VITALS: BP 86/52
[2021-06-12] MEDS: NS 1,000 ML IV SCH ×2 (16:10→23:50)
[2021-06-12] MEDS ORDERED: NS 1,000 ML IV ONE (16:25)
[2021-06-12 17:29] VITALS: BP 102/59
[2021-06-12] MEDS: CLOPIDOGREL 75 MG TAB PO SCH (18:36)
[2021-06-12 20:00] VITALS: BP 109/59
[2021-06-12] MEDS: ATORVASTATIN 20 MG TAB PO SCH (21:26)
[2021-06-12] MEDS: NORTRIPTYLINE 25 MG CAP PO SCH (21:26)
[2021-06-12] MEDS: POTASSIUM CHLORIDE 10MEQ SR TABLET PO SCH (21:27)
[2021-06-12 23:45] VITALS: BP 126/76
[2021-06-13] MEDS: LIDOCAINE 5% (LIDODERM) PATCH TD SCH ×2 (02:24→21:10)
[2021-06-13] MEDS: LEVOTHYROXINE 112MCG TABLET (0.112MG) PO SCH (05:28)
[2021-06-13] MEDS: HEPARIN SOD (PORCINE) 5000UNITS/ML 1ML VIAL/SYRINGE SC SCH ×3 (05:29→21:12)
[2021-06-13 06:13] LABS: BASO % 0.3 % (0.0-1.0); EOS # 0.4 10^3/uL (0.0-0.5); EOS % 5.3 % (0.0-3.0); HEMATOCRIT 30.6 % (36.0-47.0); HEMOGLOBIN 9.7 g/dl (12.0-15.5); LYMPH # 1.5 10^3/uL (1.5-5.0); LYMPH % 22.3 % (24.0-44.0); MEAN CORPUSCULAR HEMOGLOBIN 30.9 pg (27.0-33.0); MEAN CORPUSCULAR HGB CONC 31.7 g/dl (32.0-36.5); MEAN CORPUSCULAR VOLUME 97.5 fl (80.0-96.0); MONO # 0.7 10^3/uL (0.0-0.8); NEUTROPHILS # 4.1 10^3/uL (1.5-8.5); NEUTROPHILS % 61.3 % (36.0-66.0); PLATELET COUNT, AUTOMATED 197 10^3/uL (150-450); RED BLOOD COUNT 3.14 10^6/uL (4.00-5.40); WHITE BLOOD COUNT 6.6 10^3/uL (4.0-10.0)
[2021-06-13 06:48] LABS: ALBUMIN 1.9 GM/DL (3.2-5.2); ALT/SGPT 25 U/L (12-78); BILIRUBIN,TOTAL 0.1 MG/DL (0.2-1.0); BLOOD UREA NITROGEN 14 MG/DL (7-18); CARBON DIOXIDE LEVEL 24 MEQ/L (21-32); CHLORIDE LEVEL 116 MEQ/L (98-107); CHOLESTEROL LEVEL 91 MG/DL (<200); CHOLESTEROL RISK RATIO 2.333 (<5); CREATININE FOR GFR 0.81 MG/DL (0.55-1.30); GLOMERULAR FILTRATION RATE > 60.0 (>32); GLUCOSE, FASTING 102 MG/DL (70-100); HDL CHOLESTEROL 39 MG/DL (>40); LDL CHOLESTEROL 26 MG/DL (<100); NON-HDL-C 52 MG/DL; POTASSIUM SERUM 4.1 MEQ/L (3.5-5.1); SODIUM LEVEL 145 MEQ/L (136-145); TRIGLYCERIDES LEVEL 130 MG/DL (<150)
[2021-06-13 07:19] LABS: ERYTHROCYTE SEDIMENTATION RATE 30 mm/hr (0-30)
[2021-06-13] MEDS: CLOPIDOGREL 75 MG TAB PO SCH (08:59)
[2021-06-13] MEDS: SUCRALFATE 1 GM TAB PO SCH ×4 (08:59→21:11)
[2021-06-13] MEDS: LACTOBACILLUS ACIDOPHILUS CAP (BACID) PO SCH ×2 (08:59→21:11)
[2021-06-13] MEDS: OCUVITE 1 TAB PO SCH (08:59)
[2021-06-13] MEDS: GABAPENTIN 400MG CAP PO SCH ×3 (08:59→21:11)
[2021-06-13] MEDS: predniSONE 20 MG TAB PO SCH (08:59)
[2021-06-13] MEDS: VITAMIN D 1,000 INTERNATIONAL UNITS TABLET PO SCH (08:59)
[2021-06-13] MEDS ORDERED: CLOPIDOGREL 75 MG TAB PO SCH (09:00)
[2021-06-13] MEDS: PHENYTOIN ER 100 MG CAP PO SCH ×2 (09:00→21:11)
[2021-06-13] MEDS ORDERED: ASPIRIN ENTERIC 325 MG TAB PO SCH (09:00)
[2021-06-13] MEDS: **NOTE PATIENT COMMENT** MISC XX SCH (09:00)
[2021-06-13 10:08] LABS: MAGNESIUM LEVEL 1.7 MG/DL (1.8-2.4); PHOSPHORUS LEVEL 1.4 MG/DL (2.5-4.9)
[2021-06-13] MEDS: NS 1,000 ML IV SCH (11:11)
[2021-06-13] MEDS ORDERED: MAGNESIUM OXIDE 400MG TAB (MAG-OX) PO ONE (13:00)
[2021-06-13] MEDS ORDERED: K-PHOS ORIGINAL (POT.ACID PHOSPHATE) 500MG TAB PO ONE (14:00)
[2021-06-13] MEDS ORDERED: POLYVINYL ALCOHOL OPHTH SOLN 15 ML(LIQUITEARS) OU PRN (16:00)
[2021-06-13] MEDS: ATORVASTATIN 20 MG TAB PO SCH (21:11)
[2021-06-13] MEDS: NORTRIPTYLINE 25 MG CAP PO SCH (21:11)
[2021-06-13] MEDS: MONTELUKAST 10 MG TAB PO SCH (21:11)
[2021-06-13 22:00] VITALS: BP_SYST 129; BP_DIAS 74; BP_DIAS 93
[2021-06-14 06:00] VITALS: BP 130/72
[2021-06-14] MEDS: HEPARIN SOD (PORCINE) 5000UNITS/ML 1ML VIAL/SYRINGE SC SCH ×3 (06:03→21:28)
[2021-06-14] MEDS: LEVOTHYROXINE 112MCG TABLET (0.112MG) PO SCH (06:03)
[2021-06-14 07:26] LABS: BASO % 0.3 % (0.0-1.0); EOS # 0.4 10^3/uL (0.0-0.5); EOS % 6.2 % (0.0-3.0); HEMATOCRIT 31.7 % (36.0-47.0); HEMOGLOBIN 10.1 g/dl (12.0-15.5); LYMPH # 1.5 10^3/uL (1.5-5.0); LYMPH % 23.1 % (24.0-44.0); MEAN CORPUSCULAR HEMOGLOBIN 31.1 pg (27.0-33.0); MEAN CORPUSCULAR HGB CONC 31.9 g/dl (32.0-36.5); MEAN CORPUSCULAR VOLUME 97.5 fl (80.0-96.0); MONO # 0.6 10^3/uL (0.0-0.8); MONO % 9.1 % (2.0-8.0); NEUTROPHILS # 3.9 10^3/uL (1.5-8.5); NEUTROPHILS % 60.4 % (36.0-66.0); PLATELET COUNT, AUTOMATED 232 10^3/uL (150-450); RED BLOOD COUNT 3.25 10^6/uL (4.00-5.40); WHITE BLOOD COUNT 6.5 10^3/uL (4.0-10.0)
[2021-06-14 08:02] LABS: ALBUMIN 2.3 GM/DL (3.2-5.2); ALT/SGPT 30 U/L (12-78); BILIRUBIN,TOTAL 0.2 MG/DL (0.2-1.0); BLOOD UREA NITROGEN 17 MG/DL (7-18); CARBON DIOXIDE LEVEL 25 MEQ/L (21-32); CHLORIDE LEVEL 111 MEQ/L (98-107); CREATININE FOR GFR 0.87 MG/DL (0.55-1.30); GLOMERULAR FILTRATION RATE > 60.0 (>32); GLUCOSE, FASTING 92 MG/DL (70-100); MAGNESIUM LEVEL 1.8 MG/DL (1.8-2.4); PHOSPHORUS LEVEL 1.6 MG/DL (2.5-4.9); POTASSIUM SERUM 4.3 MEQ/L (3.5-5.1); SODIUM LEVEL 142 MEQ/L (136-145); TOTAL PROTEIN 5.8 GM/DL (6.4-8.2)
[2021-06-14] MEDS: OCUVITE 1 TAB PO SCH (10:44)
[2021-06-14] MEDS: LACTOBACILLUS ACIDOPHILUS CAP (BACID) PO SCH ×2 (10:45→20:09)
[2021-06-14] MEDS: VITAMIN D 1,000 INTERNATIONAL UNITS TABLET PO SCH (10:45)
[2021-06-14] MEDS: GABAPENTIN 400MG CAP PO SCH ×3 (10:45→20:09)
[2021-06-14] MEDS: SUCRALFATE 1 GM TAB PO SCH ×4 (10:45→20:09)
[2021-06-14] MEDS: CLOPIDOGREL 75 MG TAB PO SCH (10:45)
[2021-06-14] MEDS: predniSONE 20 MG TAB PO SCH (10:45)
[2021-06-14] MEDS: **NOTE PATIENT COMMENT** MISC XX SCH (10:46)
[2021-06-14] MEDS: PHENYTOIN ER 100 MG CAP PO SCH ×2 (10:46→20:10)
[2021-06-14] MEDS ORDERED: K-PHOS ORIGINAL (POT.ACID PHOSPHATE) 500MG TAB PO ONE (12:00)
[2021-06-14 14:00] VITALS: BP 126/74
[2021-06-14] MEDS ORDERED: hydrOXYzine 10 MG TAB PO ONE (20:00)
[2021-06-14] MEDS: NORTRIPTYLINE 25 MG CAP PO SCH (20:09)
[2021-06-14] MEDS: ATORVASTATIN 20 MG TAB PO SCH (20:09)
[2021-06-14] MEDS: MONTELUKAST 10 MG TAB PO SCH (20:09)
[2021-06-14] MEDS: LIDOCAINE 5% (LIDODERM) PATCH TD SCH (20:10)
[2021-06-14 22:00] VITALS: BP 112/77
[2021-06-15 06:00] VITALS: BP 108/68
[2021-06-15] MEDS: LEVOTHYROXINE 112MCG TABLET (0.112MG) PO SCH (06:02)
[2021-06-15] MEDS: HEPARIN SOD (PORCINE) 5000UNITS/ML 1ML VIAL/SYRINGE SC SCH ×2 (06:02→14:40)
[2021-06-15 06:13] LABS: BASO # 0.1 10^3/uL (0.0-0.2); BASO % 0.8 % (0.0-1.0); EOS # 0.3 10^3/uL (0.0-0.5); EOS % 3.8 % (0.0-3.0); HEMATOCRIT 32.4 % (36.0-47.0); HEMOGLOBIN 10.4 g/dl (12.0-15.5); LYMPH # 1.7 10^3/uL (1.5-5.0); LYMPH % 25.4 % (24.0-44.0); MEAN CORPUSCULAR HGB CONC 32.1 g/dl (32.0-36.5); MEAN CORPUSCULAR VOLUME 96.7 fl (80.0-96.0); MONO # 0.9 10^3/uL (0.0-0.8); MONO % 13.2 % (2.0-8.0); NEUTROPHILS # 3.6 10^3/uL (1.5-8.5); NEUTROPHILS % 55.4 % (36.0-66.0); PLATELET COUNT, AUTOMATED 211 10^3/uL (150-450); RED BLOOD COUNT 3.35 10^6/uL (4.00-5.40); WHITE BLOOD COUNT 6.6 10^3/uL (4.0-10.0)
[2021-06-15 06:39] LABS: ALT/SGPT 40 U/L (12-78); BILIRUBIN,TOTAL 0.2 MG/DL (0.2-1.0); BLOOD UREA NITROGEN 17 MG/DL (7-18); CALCIUM LEVEL 8.8 MG/DL (8.8-10.2); CARBON DIOXIDE LEVEL 23 MEQ/L (21-32); CHLORIDE LEVEL 114 MEQ/L (98-107); CREATININE FOR GFR 0.79 MG/DL (0.55-1.30); GLOMERULAR FILTRATION RATE > 60.0 (>32); GLUCOSE, FASTING 85 MG/DL (70-100); MAGNESIUM LEVEL 1.8 MG/DL (1.8-2.4); PHOSPHORUS LEVEL 3.2 MG/DL (2.5-4.9); POTASSIUM SERUM 5.1 MEQ/L (3.5-5.1); SODIUM LEVEL 143 MEQ/L (136-145); TOTAL PROTEIN 5.5 GM/DL (6.4-8.2)
[2021-06-15] MEDS ORDERED: ATOR40TA75 PO (09:09)
[2021-06-15] MEDS ORDERED: CLOP75TA2 PO (09:09)
[2021-06-15] MEDS: predniSONE 20 MG TAB PO SCH (09:37)
[2021-06-15] MEDS: VITAMIN D 1,000 INTERNATIONAL UNITS TABLET PO SCH (09:37)
[2021-06-15] MEDS: OCUVITE 1 TAB PO SCH (09:37)
[2021-06-15] MEDS: SUCRALFATE 1 GM TAB PO SCH ×2 (09:37→14:40)
[2021-06-15] MEDS: GABAPENTIN 400MG CAP PO SCH (09:37)
[2021-06-15] MEDS: **NOTE PATIENT COMMENT** MISC XX SCH (09:38)
[2021-06-15] MEDS: CLOPIDOGREL 75 MG TAB PO SCH (09:38)
[2021-06-15] MEDS: PHENYTOIN ER 100 MG CAP PO SCH (09:38)
[2021-06-15] MEDS: LACTOBACILLUS ACIDOPHILUS CAP (BACID) PO SCH (09:38)
[2021-06-15 14:00] VITALS: BP 109/67
[2021-06-15 14:22] LABS: HEPATITIS B SURFACE ANTIGEN NEGATIVE (NEGATIVE)
[2021-06-15 14:49] LABS: HEPATITIS C VIRUS ABY INDEX 0.1 INDEX (<0.8)
[2021-06-15 14:50] LABS: HEPATITIS B CORE ANTIBODY IGM NEGATIVE (NEGATIVE)
== END 2021-06-15 15:30 | disposition home health service (06) | DRG 66 ==
LOC: M ED 16:04 → M ED INP 19:41 → ENRESERV 06-12 06:29 → M PCU 06-12 08:14 → M MS5PR 06-12 23:27
PROVIDERS: ADMIT Internal Medicine; ATTEND Internal Medicine
DX: I63.9 Cerebral infarction, unspecified (principal); F32.9 Major depressive disorder, single episode, unspecified; E03.9 Hypothyroidism, unspecified; I25.10 Atherosclerotic heart disease of native coronary artery without angina pectoris; M35.3 Polymyalgia rheumatica; I25.2 Old myocardial infarction; I73.9 Peripheral vascular disease, unspecified; Z79.899 Other long term (current) drug therapy; Z88.2 Allergy status to sulfonamides; Z88.8 Allergy status to other drugs, medicaments and biological substances; G43.909 Migraine, unspecified, not intractable, without status migrainosus; K76.0 Fatty (change of) liver, not elsewhere classified; Z96.652 Presence of left artificial knee joint; Z87.891 Personal history of nicotine dependence; K57.30 Diverticulosis of large intestine without perforation or abscess without bleeding; E55.9 Vitamin D deficiency, unspecified; Z79.82 Long term (current) use of aspirin; R56.9 Unspecified convulsions

== ENCOUNTER 2021-08-29 09:10 | Emergency (ER) | payer MEDICAID, MEDICARE ==
[~2021-08-29 09:10] MED LIST changes: +ALLE180T42 PO; +ASCO500T PO; +BAYE325T12 PO; +CLOP75TA2 PO; +D32000CA PO; +FAMO40TA3 PO; +FURO40TA2 PO; +MED REC COMMENT; +MUCI600T31 PO; +MULT-40 PO; +POTA1TAB14 PO; +PRESCAP PO; +RISATAB3 PO; +TIZA10TA PO
[2021-08-29] MEDS ORDERED: POTA1TAB14 (09:37)
[2021-08-29] MEDS ORDERED: LEVO112T2 (09:37)
[2021-08-29 13:17] VITALS: BP 99/63
== END 2021-08-29 13:21 | disposition home or self-care (01) ==
LOC: EDBD 09:10 → M ED 09:10
DX: M54.30 Sciatica, unspecified side (principal); M54.50 Low back pain, unspecified; G89.29 Other chronic pain; Z79.51 Long term (current) use of inhaled steroids; Z79.899 Other long term (current) drug therapy; Z88.1 Allergy status to other antibiotic agents; Z88.2 Allergy status to sulfonamides; Z88.8 Allergy status to other drugs, medicaments and biological substances; Z91.048 Other nonmedicinal substance allergy status

== ENCOUNTER → 2021-09-02 | Outpatient (REF) | payer MEDICARE, MEDICAID ==
[~2021-09-02] MED LIST changes: +LEVO112T2; +POTA1TAB14
[2021-09-02 17:30] LABS: HEMATOCRIT 40.7 % (36.0-47.0); HEMOGLOBIN 12.7 g/dl (12.0-15.5); MEAN CORPUSCULAR HEMOGLOBIN 32.1 pg (27.0-33.0); MEAN CORPUSCULAR HGB CONC 31.2 g/dl (32.0-36.5); MEAN CORPUSCULAR VOLUME 102.8 fl (80.0-96.0); PLATELET COUNT, AUTOMATED 229 10^3/uL (150-450); RED BLOOD COUNT 3.96 10^6/uL (4.00-5.40); WHITE BLOOD COUNT 8.4 10^3/uL (4.0-10.0)
[2021-09-02 17:56] LABS: ALBUMIN 3.5 GM/DL (3.2-5.2); BILIRUBIN,TOTAL 0.2 MG/DL (0.2-1.0); CALCIUM LEVEL 9.5 MG/DL (8.8-10.2); CHOLESTEROL RISK RATIO 2.305 (<5); CREATININE FOR GFR 1.37 MG/DL (0.55-1.30); FREE T4 1.01 NG/DL (0.76-1.46); GLOMERULAR FILTRATION RATE 39.2 (>32); THYROID STIMULATING HORMONE 1.62 uIU/ML (0.358-3.740); TOTAL PROTEIN 6.6 GM/DL (6.4-8.2)
== END ==
LOC: M SFHCADAM 10:31
PROVIDERS: ATTEND Family Medicine
DX: I69.998 Other sequelae following unspecified cerebrovascular disease (principal); I25.2 Old myocardial infarction; E03.9 Hypothyroidism, unspecified

== ENCOUNTER 2021-10-31 20:02 | Emergency (ER) | payer MEDICARE, MEDICAID ==
[~2021-10-31] VITALS: Ht 152.4 cm; Wt 55.5 kg
[2021-10-31] MEDS ORDERED: ASPIRIN 81 MG CHEW TABLET PO ONE (21:15)
[2021-10-31 21:28] LABS: BASO % 0.3 % (0.0-1.0); EOS % 0.3 % (0.0-3.0); HEMATOCRIT 37.5 % (36.0-47.0); HEMOGLOBIN 12.6 g/dl (12.0-15.5); LYMPH # 1.4 10^3/uL (1.5-5.0); LYMPH % 24.9 % (24.0-44.0); MEAN CORPUSCULAR HEMOGLOBIN 34.1 pg (27.0-33.0); MEAN CORPUSCULAR HGB CONC 33.6 g/dl (32.0-36.5); MEAN CORPUSCULAR VOLUME 101.6 fl (80.0-96.0); MONO # 0.9 10^3/uL (0.0-0.8); MONO % 16.2 % (2.0-8.0); NEUTROPHILS # 3.4 10^3/uL (1.5-8.5); NEUTROPHILS % 58.1 % (36.0-66.0); PLATELET COUNT, AUTOMATED 221 10^3/uL (150-450); RED BLOOD COUNT 3.69 10^6/uL (4.00-5.40); WHITE BLOOD COUNT 5.8 10^3/uL (4.0-10.0)
[2021-10-31 21:34] LABS: CK-MB VALUE MASS 3.7 NG/ML (<3.6); MB/CK RELATIVE INDEX 3.49 (< OR =4)
[2021-10-31 21:41] LABS: ALBUMIN 3.3 GM/DL (3.2-5.2); ALT/SGPT 30 U/L (12-78); BILIRUBIN,DIRECT < 0.1 MG/DL (0.0-0.2); BILIRUBIN,TOTAL 0.2 MG/DL (0.2-1.0); BLOOD UREA NITROGEN 40 MG/DL (7-18); CARBON DIOXIDE LEVEL 25 MEQ/L (21-32); CHLORIDE LEVEL 110 MEQ/L (98-107); CREATININE FOR GFR 1.45 MG/DL (0.55-1.30); GLOMERULAR FILTRATION RATE 36.7 (>32); GLUCOSE, FASTING 136 MG/DL (70-100); LIPASE 731 U/L (73-393); POTASSIUM SERUM 4.3 MEQ/L (3.5-5.1); SODIUM LEVEL 143 MEQ/L (136-145); TOTAL PROTEIN 6.2 GM/DL (6.4-8.2)
[2021-10-31 22:21] LABS: CK-MB VALUE MASS 3.2 NG/ML (<3.6); MB/CK RELATIVE INDEX 4.21 (< OR =4)
[2021-11-01 00:15] VITALS: BP 121/69
== END 2021-11-01 00:20 | disposition home or self-care (01) ==
LOC: M ED 20:02
DX: K85.90 Acute pancreatitis without necrosis or infection, unspecified (principal); N13.2 Hydronephrosis with renal and ureteral calculous obstruction; R94.31 Abnormal electrocardiogram [ECG] [EKG]; Z86.73 Personal history of transient ischemic attack (TIA), and cerebral infarction without residual deficits; Z88.1 Allergy status to other antibiotic agents; Z88.2 Allergy status to sulfonamides; Z91.048 Other nonmedicinal substance allergy status; Z79.899 Other long term (current) drug therapy

== ENCOUNTER 2021-11-04 08:36 | Emergency (ER) | payer MEDICAID, MEDICARE ==
[~2021-11-04] VITALS: Ht 152.4 cm; Wt 54.1 kg
[2021-11-04] MEDS ORDERED: ACETAMINOPHEN TAB 650MG DOSE (2X325MG) PO ONE (09:05)
[2021-11-04] MEDS ORDERED: NS 1,000 ML IV ONE (09:05)
[2021-11-04 09:29] LABS: BASO % 0.2 % (0.0-1.0); EOS % 0.5 % (0.0-3.0); HEMATOCRIT 35.8 % (36.0-47.0); LYMPH # 0.6 10^3/uL (1.5-5.0); LYMPH % 9.1 % (24.0-44.0); MEAN CORPUSCULAR HEMOGLOBIN 34.4 pg (27.0-33.0); MEAN CORPUSCULAR HGB CONC 33.5 g/dl (32.0-36.5); MEAN CORPUSCULAR VOLUME 102.6 fl (80.0-96.0); MONO # 0.6 10^3/uL (0.0-0.8); MONO % 10.4 % (2.0-8.0); NEUTROPHILS # 4.8 10^3/uL (1.5-8.5); NEUTROPHILS % 79.3 % (36.0-66.0); PLATELET COUNT, AUTOMATED 158 10^3/uL (150-450); RED BLOOD COUNT 3.49 10^6/uL (4.00-5.40); WHITE BLOOD COUNT 6.1 10^3/uL (4.0-10.0)
[2021-11-04 10:12] LABS: ALBUMIN 2.9 GM/DL (3.2-5.2); ALT/SGPT 22 U/L (12-78); BILIRUBIN,DIRECT 0.1 MG/DL (0.0-0.2); BILIRUBIN,TOTAL 0.2 MG/DL (0.2-1.0); BLOOD UREA NITROGEN 22 MG/DL (7-18); CALCIUM LEVEL 8.4 MG/DL (8.8-10.2); CARBON DIOXIDE LEVEL 26 MEQ/L (21-32); CHLORIDE LEVEL 107 MEQ/L (98-107); CREATININE FOR GFR 0.93 MG/DL (0.55-1.30); GLOMERULAR FILTRATION RATE > 60.0 (>32); GLUCOSE, FASTING 127 MG/DL (70-100); NT-PRO BNP 79 PG/ML (<450); POTASSIUM SERUM 3.4 MEQ/L (3.5-5.1); SODIUM LEVEL 140 MEQ/L (136-145); THYROID STIMULATING HORMONE 0.729 uIU/ML (0.358-3.740); TOTAL PROTEIN 5.5 GM/DL (6.4-8.2)
[2021-11-04 12:33] VITALS: O2SAT 97
[2021-11-04 13:15] LABS: LIPASE 121 U/L (73-393)
[2021-11-04 15:15] VITALS: BP 111/72
== END 2021-11-04 15:34 | disposition home or self-care (01) ==
LOC: M ED 08:36 → EDBD 08:36 → M ED 15:34
DX: J21.1 Acute bronchiolitis due to human metapneumovirus (principal); R94.31 Abnormal electrocardiogram [ECG] [EKG]; E03.9 Hypothyroidism, unspecified; J44.9 Chronic obstructive pulmonary disease, unspecified; I25.2 Old myocardial infarction; Z86.79 Personal history of other diseases of the circulatory system; Z88.2 Allergy status to sulfonamides; Z88.8 Allergy status to other drugs, medicaments and biological substances; Z91.048 Other nonmedicinal substance allergy status

== ENCOUNTER 2021-11-12 14:57 | Emergency (ER) | payer MEDICARE, MEDICAID ==
[~2021-11-12] VITALS: Ht 152.4 cm; Wt 53.6 kg
[2021-11-12 15:42] LABS: BASO % 0.1 % (0.0-1.0); HEMATOCRIT 35.3 % (36.0-47.0); HEMOGLOBIN 11.8 g/dl (12.0-15.5); LYMPH # 0.9 10^3/uL (1.5-5.0); LYMPH % 12.5 % (24.0-44.0); MEAN CORPUSCULAR HEMOGLOBIN 33.8 pg (27.0-33.0); MEAN CORPUSCULAR HGB CONC 33.4 g/dl (32.0-36.5); MEAN CORPUSCULAR VOLUME 101.1 fl (80.0-96.0); MONO # 0.3 10^3/uL (0.0-0.8); MONO % 3.7 % (2.0-8.0); NEUTROPHILS # 5.8 10^3/uL (1.5-8.5); NEUTROPHILS % 83.3 % (36.0-66.0); PLATELET COUNT, AUTOMATED 260 10^3/uL (150-450); RED BLOOD COUNT 3.49 10^6/uL (4.00-5.40); WHITE BLOOD COUNT 6.9 10^3/uL (4.0-10.0)
[2021-11-12 16:14] LABS: CK-MB VALUE MASS 2.9 NG/ML (<3.6); MB/CK RELATIVE INDEX 4.2 (< OR =4)
[2021-11-12 16:19] LABS: ALBUMIN 3.1 GM/DL (3.2-5.2); ALT/SGPT 25 U/L (12-78); BILIRUBIN,DIRECT < 0.1 MG/DL (0.0-0.2); BILIRUBIN,TOTAL 0.2 MG/DL (0.2-1.0); BLOOD UREA NITROGEN 42 MG/DL (7-18); CALCIUM LEVEL 9.3 MG/DL (8.8-10.2); CARBON DIOXIDE LEVEL 27 MEQ/L (21-32); CHLORIDE LEVEL 107 MEQ/L (98-107); CREATININE FOR GFR 1.02 MG/DL (0.55-1.30); FREE T4 0.95 NG/DL (0.76-1.46); GLOMERULAR FILTRATION RATE 55.1 (>32); GLUCOSE, FASTING 120 MG/DL (70-100); LIPASE 138 U/L (73-393); NT-PRO BNP 98 PG/ML (<450); POTASSIUM SERUM 3.9 MEQ/L (3.5-5.1); SODIUM LEVEL 143 MEQ/L (136-145); THYROID STIMULATING HORMONE 0.941 uIU/ML (0.358-3.740); TOTAL PROTEIN 6.3 GM/DL (6.4-8.2)
[2021-11-12 17:27] LABS: CK-MB VALUE MASS 2.1 NG/ML (<3.6); MB/CK RELATIVE INDEX 2.59 (< OR =4)
[2021-11-12] MEDS ORDERED: HYDROcodone/APAP LIQUID 7.5-325MG 15ML UDC (LORTAB ELIXIR) PO ONE (18:10)
[2021-11-12] MEDS ORDERED: HYDR-4465 PO ×2 (18:12→18:39)
[2021-11-12 18:47] VITALS: BP 101/58
== END 2021-11-12 18:55 | disposition home or self-care (01) ==
LOC: EDBD 14:57 → M ED 14:57
DX: J06.9 Acute upper respiratory infection, unspecified (principal); R05.9 Cough, unspecified; I25.2 Old myocardial infarction; J45.909 Unspecified asthma, uncomplicated; K21.9 Gastro-esophageal reflux disease without esophagitis; Z86.73 Personal history of transient ischemic attack (TIA), and cerebral infarction without residual deficits; Z79.51 Long term (current) use of inhaled steroids; Z79.899 Other long term (current) drug therapy; Z88.2 Allergy status to sulfonamides; Z88.8 Allergy status to other drugs, medicaments and biological substances; Z88.1 Allergy status to other antibiotic agents

== ENCOUNTER → 2021-11-26 | Outpatient (REF) | payer MEDICARE, MEDICAID ==
[~2021-11-26] MED LIST changes: +HYDR-4465 PO
== END ==
LOC: M SFHCADAM 14:33
PROVIDERS: ATTEND Family Medicine
DX: E55.9 Vitamin D deficiency, unspecified (principal); Z79.899 Other long term (current) drug therapy

== ENCOUNTER → 2021-11-30 | Outpatient (CLI) | payer MEDICARE, MEDICAID | LOC: M PLAIMG 13:24 | PROVIDERS: ATTEND Nurse Practitioner Family | DX: M16.0 Bilateral primary osteoarthritis of hip (principal) ==

== ENCOUNTER → 2021-12-03 | Outpatient (CLI) | payer MEDICAID, MEDICARE | LOC: M RAD 09:24 | PROVIDERS: ATTEND Family Medicine | DX: N13.30 Unspecified hydronephrosis (principal) ==

== ENCOUNTER 2021-12-12 08:22 | Emergency (ER) | payer MEDICARE ==
[~2021-12-12] VITALS: Ht 152.4 cm; Wt 53.6 kg
[2021-12-12] MEDS ORDERED: ACETAMINOPHEN 500 MG TAB PO ONE (08:40)
[2021-12-12 10:16] VITALS: BP 102/62
== END 2021-12-12 10:24 | disposition home or self-care (01) ==
LOC: EDBD 08:22 → M ED 08:22
DX: S30.0XXA Contusion of lower back and pelvis, initial encounter (principal); W01.0XXA Fall on same level from slipping, tripping and stumbling without subsequent striking against object, initial encounter; I51.9 Heart disease, unspecified; J45.909 Unspecified asthma, uncomplicated; K58.9 Irritable bowel syndrome, unspecified; Z87.891 Personal history of nicotine dependence; Z88.2 Allergy status to sulfonamides; Z88.6 Allergy status to analgesic agent; Z91.048 Other nonmedicinal substance allergy status; Z79.899 Other long term (current) drug therapy; Y92.009 Unspecified place in unspecified non-institutional (private) residence as the place of occurrence of the external cause; Y93.9 Activity, unspecified; Y99.9 Unspecified external cause status

== ENCOUNTER → 2021-12-22 | Outpatient (REF) | payer MEDICARE, MEDICAID ==
[2021-12-22 13:19] LABS: HEMATOCRIT 39.8 % (36.0-47.0); HEMOGLOBIN 12.8 g/dl (12.0-15.5); MEAN CORPUSCULAR HEMOGLOBIN 34.1 pg (27.0-33.0); MEAN CORPUSCULAR HGB CONC 32.2 g/dl (32.0-36.5); MEAN CORPUSCULAR VOLUME 106.1 fl (80.0-96.0); PLATELET COUNT, AUTOMATED 262 10^3/uL (150-450); RED BLOOD COUNT 3.75 10^6/uL (4.00-5.40); WHITE BLOOD COUNT 9.3 10^3/uL (4.0-10.0)
[2021-12-22 13:30] LABS: ALBUMIN 3.3 GM/DL (3.2-5.2); BILIRUBIN,TOTAL 0.2 MG/DL (0.2-1.0); C REACTIVE PROTEIN QUANTITATIV 0.3 MG/DL (0.00-0.30); CALCIUM LEVEL 9.7 MG/DL (8.8-10.2); CREATININE FOR GFR 1.06 MG/DL (0.55-1.30); FREE T4 0.89 NG/DL (0.76-1.46); GLOMERULAR FILTRATION RATE 52.7 (>32); POTASSIUM SERUM 3.8 MEQ/L (3.5-5.1); THYROID STIMULATING HORMONE 1.38 uIU/ML (0.358-3.740); TOTAL PROTEIN 6.1 GM/DL (6.4-8.2)
== END ==
LOC: M SFHCADAM 09:28
PROVIDERS: ATTEND Family Medicine
DX: M35.3 Polymyalgia rheumatica (principal); D50.0 Iron deficiency anemia secondary to blood loss (chronic); E03.9 Hypothyroidism, unspecified

== ENCOUNTER 2021-12-26 16:18 | Emergency (ER) | payer MEDICAID, MEDICARE ==
[~2021-12-26] VITALS: Ht 152.4 cm; Wt 55.9 kg
[2021-12-26] MEDS ORDERED: NORCO, ANEXSIA 5/325MG TABLET (HYDROcodone/ACETAMINOPHEN) PO ONE (18:55)
[2021-12-26] MEDS ORDERED: diazePAM 5MG TABLET PO ONE (18:55)
[2021-12-26] MEDS ORDERED: ALBUTEROL 90 MCG/ACT 8GM HFA INHALER INH ONE (19:00)
[2021-12-26 21:35] VITALS: BP 111/62
== END 2021-12-26 21:36 | disposition home or self-care (01) ==
LOC: M ED 16:18
DX: M54.9 Dorsalgia, unspecified (principal); G89.29 Other chronic pain; M79.605 Pain in left leg; M62.81 Muscle weakness (generalized); M25.551 Pain in right hip; M25.552 Pain in left hip; Z88.1 Allergy status to other antibiotic agents; Z88.2 Allergy status to sulfonamides; Z88.8 Allergy status to other drugs, medicaments and biological substances

== ENCOUNTER 2022-02-21 15:25 | Emergency (ER) | payer MEDICARE, OTHER ==
[~2022-02-21] VITALS: Ht 152.4 cm; Wt 57.3 kg
[~2022-02-21 15:25] MED LIST changes: +LEVO1TAB39; -LEVO500T4
[2022-02-21 17:45] LABS: BASO % 0.2 % (0.0-1.0); EOS % 0.3 % (0.0-3.0); HEMATOCRIT 41.1 % (36.0-47.0); HEMOGLOBIN 13.3 g/dl (12.0-15.5); LYMPH # 1.3 10^3/uL (1.5-5.0); LYMPH % 15.5 % (24.0-44.0); MEAN CORPUSCULAR HEMOGLOBIN 34.2 pg (27.0-33.0); MEAN CORPUSCULAR HGB CONC 32.4 g/dl (32.0-36.5); MEAN CORPUSCULAR VOLUME 105.7 fl (80.0-96.0); MONO # 0.5 10^3/uL (0.0-0.8); MONO % 6.2 % (2.0-8.0); NEUTROPHILS # 6.7 10^3/uL (1.5-8.5); NEUTROPHILS % 77.5 % (36.0-66.0); PLATELET COUNT, AUTOMATED 241 10^3/uL (150-450); RED BLOOD COUNT 3.89 10^6/uL (4.00-5.40); WHITE BLOOD COUNT 8.6 10^3/uL (4.0-10.0)
[2022-02-21] MEDS ORDERED: ISOVUE-370 76% 100ML VIAL As Ordered ONE (18:00)
[2022-02-21 18:17] LABS: INR 0.88; PROTHROMBIN TIME 12.3 SECONDS (12.7-14.5)
[2022-02-21 18:18] LABS: PARTIAL THROMBOPLASTIN TIME 27.7 SECONDS (25.9-37.0)
[2022-02-21 18:32] LABS: ERYTHROCYTE SEDIMENTATION RATE 9 mm/hr (0-30)
[2022-02-21 19:25] VITALS: BP 110/55
== END 2022-02-21 20:27 | disposition home or self-care (01) ==
LOC: M ED 15:25
DX: R22.42 Localized swelling, mass and lump, left lower limb (principal); I25.2 Old myocardial infarction; G43.909 Migraine, unspecified, not intractable, without status migrainosus; K21.9 Gastro-esophageal reflux disease without esophagitis; K58.9 Irritable bowel syndrome, unspecified; J45.909 Unspecified asthma, uncomplicated; Z86.73 Personal history of transient ischemic attack (TIA), and cerebral infarction without residual deficits; M54.50 Low back pain, unspecified; Z88.1 Allergy status to other antibiotic agents; Z88.2 Allergy status to sulfonamides; Z88.8 Allergy status to other drugs, medicaments and biological substances; Z91.048 Other nonmedicinal substance allergy status; Z79.51 Long term (current) use of inhaled steroids; Z79.899 Other long term (current) drug therapy
CPT/HCPCS: 36415; 75635; 80047; 83605; 85025; 85610; 85652; 85730; 86140; 87040; 93971; 99284; Q9967

== ENCOUNTER → 2022-03-01 | Outpatient (REF) | payer MEDICARE, MEDICAID ==
[2022-03-01 20:21] LABS: CALCIUM LEVEL 9.3 MG/DL (8.8-10.2); CREATININE FOR GFR 1.27 MG/DL (0.55-1.30); GLOMERULAR FILTRATION RATE 42.8 (>32); POTASSIUM SERUM 4.3 MEQ/L (3.5-5.1)
== END ==
LOC: M SFHCADAM 14:45
PROVIDERS: ATTEND Physician Assistant
DX: I95.9 Hypotension, unspecified (principal)

== ENCOUNTER → 2022-03-08 | Outpatient (CLI) | payer MEDICARE, MEDICAID | LOC: M ADAMS 12:10 | PROVIDERS: ATTEND Physician Assistant | DX: M79.662 Pain in left lower leg (principal) ==

== ENCOUNTER → 2022-04-18 | Outpatient (REF) | payer MEDICARE, MEDICAID | LOC: M SFHCADAM 14:09 | PROVIDERS: ATTEND Physician Assistant | DX: Z53.20 Procedure and treatment not carried out because of patient's decision for unspecified reasons (principal) ==

== ENCOUNTER → 2022-04-19 | Outpatient (CLI) | payer MEDICARE, MEDICAID ==
[2022-04-19 11:59] LABS: CALCIUM LEVEL 9.2 MG/DL (8.8-10.2); CREATININE FOR GFR 1.15 MG/DL (0.55-1.30); GLOMERULAR FILTRATION RATE 47.9 (>32); POTASSIUM SERUM 4.3 MEQ/L (3.5-5.1)
== END ==
LOC: M RAD 10:01
PROVIDERS: ATTEND Physician Assistant
DX: R60.0 Localized edema (principal); S50.01XA Contusion of right elbow, initial encounter; X58.XXXA Exposure to other specified factors, initial encounter; Y92.9 Unspecified place or not applicable

== ENCOUNTER → 2022-04-28 | Outpatient (REF) | payer MEDICARE, MEDICAID ==
[2022-04-28 17:16] LABS: BASO % 0.3 % (0.0-1.0); HEMATOCRIT 39.1 % (36.0-47.0); HEMOGLOBIN 12.8 g/dl (12.0-15.5); LYMPH # 0.8 10^3/uL (1.5-5.0); LYMPH % 12.1 % (24.0-44.0); MEAN CORPUSCULAR HEMOGLOBIN 34.9 pg (27.0-33.0); MEAN CORPUSCULAR HGB CONC 32.7 g/dl (32.0-36.5); MEAN CORPUSCULAR VOLUME 106.5 fl (80.0-96.0); MONO # 0.3 10^3/uL (0.0-0.8); MONO % 4.3 % (2.0-8.0); NEUTROPHILS # 5.8 10^3/uL (1.5-8.5); PLATELET COUNT, AUTOMATED 223 10^3/uL (150-450); RED BLOOD COUNT 3.67 10^6/uL (4.00-5.40); WHITE BLOOD COUNT 6.9 10^3/uL (4.0-10.0)
[2022-04-28 17:38] LABS: ERYTHROCYTE SEDIMENTATION RATE 5 mm/hr (0-30)
[2022-04-28 17:42] LABS: ALBUMIN 3.3 GM/DL (3.2-5.2); BILIRUBIN,TOTAL 0.2 MG/DL (0.2-1.0); C REACTIVE PROTEIN QUANTITATIV 0.3 MG/DL (0.00-0.30); CREATININE FOR GFR 1.1 MG/DL (0.55-1.30); GLOMERULAR FILTRATION RATE 50.4 (>32); POTASSIUM SERUM 4.7 MEQ/L (3.5-5.1); TOTAL PROTEIN 6.7 GM/DL (6.4-8.2); URIC ACID 5.1 MG/DL (2.6-6.0)
== END ==
LOC: M SFHCRHEU 14:34
PROVIDERS: ATTEND Internal Medicine Rheumatology
DX: R79.82 Elevated C-reactive protein (CRP) (principal); M25.50 Pain in unspecified joint; H04.123 Dry eye syndrome of bilateral lacrimal glands; Z79.52 Long term (current) use of systemic steroids

== ENCOUNTER → 2022-04-30 | Outpatient (CLI) | payer MEDICARE, MEDICAID | LOC: M RAD 12:20 | PROVIDERS: ATTEND Internal Medicine Rheumatology | DX: R79.82 Elevated C-reactive protein (CRP) (principal) ==

== ENCOUNTER → 2022-06-14 | Outpatient (CLI) | payer MEDICARE, MEDICAID ==
[2022-06-14 10:57] LABS: BASO % 0.4 % (0.0-1.0); EOS % 0.5 % (0.0-3.0); HEMATOCRIT 39.8 % (36.0-47.0); HEMOGLOBIN 12.5 g/dl (12.0-15.5); LYMPH # 0.9 10^3/uL (1.5-5.0); LYMPH % 12.2 % (24.0-44.0); MEAN CORPUSCULAR HEMOGLOBIN 33.9 pg (27.0-33.0); MEAN CORPUSCULAR HGB CONC 31.4 g/dl (32.0-36.5); MEAN CORPUSCULAR VOLUME 107.9 fl (80.0-96.0); MONO # 0.5 10^3/uL (0.0-0.8); MONO % 6.2 % (2.0-8.0); NEUTROPHILS % 80.3 % (36.0-66.0); PLATELET COUNT, AUTOMATED 213 10^3/uL (150-450); RED BLOOD COUNT 3.69 10^6/uL (4.00-5.40); WHITE BLOOD COUNT 7.5 10^3/uL (4.0-10.0)
[2022-06-14 11:27] LABS: ERYTHROCYTE SEDIMENTATION RATE 5 mm/hr (0-30)
[2022-06-14 11:48] LABS: ALBUMIN 3.1 G/DL (3.2-5.2); BILIRUBIN,TOTAL 0.3 MG/DL (0.3-1.2); C REACTIVE PROTEIN QUANTITATIV 0.4 MG/DL (<1.0); CALCIUM LEVEL 8.8 MG/DL (8.3-10.6); CREATININE FOR GFR 1.01 MG/DL (0.55-1.30); GLOMERULAR FILTRATION RATE 55.6 (>32); POTASSIUM SERUM 4.4 MMOL/L (3.5-5.1); TOTAL PROTEIN 5.8 G/DL (5.7-8.2)
== END ==
LOC: M LAB 09:36
PROVIDERS: ATTEND Internal Medicine Rheumatology
DX: R79.82 Elevated C-reactive protein (CRP) (principal); H04.123 Dry eye syndrome of bilateral lacrimal glands; M25.50 Pain in unspecified joint; Z79.52 Long term (current) use of systemic steroids

== ENCOUNTER → 2022-06-24 | Outpatient (CLI) | payer MEDICARE, MEDICAID | LOC: M RAD 17:58 | PROVIDERS: ATTEND Physician Assistant Medical | DX: M79.602 Pain in left arm (principal) ==

== ENCOUNTER → 2022-06-30 | Outpatient (REF) | payer MEDICARE, MEDICAID | LOC: M SFHCADAM 12:26 | PROVIDERS: ATTEND Physician Assistant | DX: R30.0 Dysuria (principal) ==

== ENCOUNTER 2022-07-08 16:32 | Emergency (ER) | payer MEDICARE, MEDICAID ==
[~2022-07-08] VITALS: Ht 152.4 cm; Wt 57.7 kg
[2022-07-09] MEDS ORDERED: diazePAM 10MG/2ML SYRINGE IM ONE (01:30)
[2022-07-09 04:34] VITALS: BP 128/80
== END 2022-07-09 06:47 | disposition home or self-care (01) ==
LOC: EDBD 16:32 → M ED 16:32
DX: M54.50 Low back pain, unspecified (principal); M25.552 Pain in left hip; G40.89 Other seizures; K21.9 Gastro-esophageal reflux disease without esophagitis; E78.5 Hyperlipidemia, unspecified; J45.909 Unspecified asthma, uncomplicated; E03.9 Hypothyroidism, unspecified; Z86.79 Personal history of other diseases of the circulatory system; Z88.2 Allergy status to sulfonamides; Z88.1 Allergy status to other antibiotic agents; Z88.8 Allergy status to other drugs, medicaments and biological substances; Z91.048 Other nonmedicinal substance allergy status; Z79.51 Long term (current) use of inhaled steroids; Z79.890 Hormone replacement therapy; Z79.891 Long term (current) use of opiate analgesic; Z79.899 Other long term (current) drug therapy
CPT/HCPCS: 36415; 72131; 73502; 80053; 85025; 85652; 86140; 96372; 99284; J3360

== ENCOUNTER → 2022-07-09 | Outpatient (CLI) | payer MEDICARE, MEDICAID ==
[2022-07-09 09:35] LABS: BASO % 0.2 % (0.0-1.0); EOS # 0.2 10^3/uL (0.0-0.5); EOS % 1.8 % (0.0-3.0); HEMATOCRIT 39.4 % (36.0-47.0); HEMOGLOBIN 12.9 g/dl (12.0-15.5); LYMPH # 2.1 10^3/uL (1.5-5.0); LYMPH % 24.8 % (24.0-44.0); MEAN CORPUSCULAR HEMOGLOBIN 34.9 pg (27.0-33.0); MEAN CORPUSCULAR HGB CONC 32.7 g/dl (32.0-36.5); MEAN CORPUSCULAR VOLUME 106.5 fl (80.0-96.0); MONO # 0.9 10^3/uL (0.0-0.8); MONO % 10.6 % (2.0-8.0); NEUTROPHILS # 5.2 10^3/uL (1.5-8.5); NEUTROPHILS % 62.2 % (36.0-66.0); PLATELET COUNT, AUTOMATED 208 10^3/uL (150-450); WHITE BLOOD COUNT 8.4 10^3/uL (4.0-10.0)
[2022-07-09 09:54] LABS: ERYTHROCYTE SEDIMENTATION RATE 5 mm/hr (0-30)
[2022-07-09 10:01] LABS: C REACTIVE PROTEIN QUANTITATIV < 0.40 MG/DL (<1.0)
[2022-07-09 10:03] LABS: ALBUMIN 3.1 G/DL (3.2-5.2); ALKALINE PHOSPHATASE 131 U/L (46-116); ALT/SGPT 24 U/L (7.0-40); AST/SGOT 24 U/L (<34); BILIRUBIN,TOTAL 0.3 MG/DL (0.3-1.2); BLOOD UREA NITROGEN 19 MG/DL (9-23); CALCIUM LEVEL 8.6 MG/DL (8.3-10.6); CARBON DIOXIDE LEVEL 27 MMOL/L (20-31); CHLORIDE LEVEL 110 MMOL/L (98-107); CREATININE FOR GFR 0.89 MG/DL (0.55-1.30); GLOMERULAR FILTRATION RATE > 60.0 (>32); GLUCOSE, FASTING 83 MG/DL (74-106); POTASSIUM SERUM 3.7 MMOL/L (3.5-5.1); SODIUM LEVEL 143 MMOL/L (136-145)
== END ==
LOC: M LAB 08:22
PROVIDERS: ATTEND Internal Medicine Rheumatology
DX: R79.82 Elevated C-reactive protein (CRP) (principal)

== ENCOUNTER 2022-08-11 12:37 | Outpatient (RCR) | payer MEDICARE, MEDICAID | END 2022-08-23 | LOC: M PT 12:37 | PROVIDERS: ATTEND Physician Assistant | DX: M54.32 Sciatica, left side (principal) ==

== ENCOUNTER → 2022-08-12 | Outpatient (CLI) | payer MEDICARE, MEDICAID ==
[2022-08-12 13:02] LABS: BASO % 0.3 % (0.0-1.0); EOS % 0.3 % (0.0-3.0); HEMOGLOBIN 13.1 g/dl (12.0-15.5); LYMPH % 15.5 % (24.0-44.0); MEAN CORPUSCULAR HEMOGLOBIN 34.9 pg (27.0-33.0); MEAN CORPUSCULAR HGB CONC 32.8 g/dl (32.0-36.5); MEAN CORPUSCULAR VOLUME 106.7 fl (80.0-96.0); MONO # 0.3 10^3/uL (0.0-0.8); MONO % 5.3 % (2.0-8.0); NEUTROPHILS # 5.1 10^3/uL (1.5-8.5); NEUTROPHILS % 78.3 % (36.0-66.0); PLATELET COUNT, AUTOMATED 212 10^3/uL (150-450); RED BLOOD COUNT 3.75 10^6/uL (4.00-5.40); WHITE BLOOD COUNT 6.5 10^3/uL (4.0-10.0)
[2022-08-12 13:15] LABS: ERYTHROCYTE SEDIMENTATION RATE 3 mm/hr (0-30)
[2022-08-12 13:32] LABS: C REACTIVE PROTEIN QUANTITATIV 0.5 MG/DL (<1.0)
[2022-08-12 13:33] LABS: ALBUMIN 3.4 G/DL (3.2-5.2); BILIRUBIN,TOTAL 0.3 MG/DL (0.3-1.2); CALCIUM LEVEL 9.1 MG/DL (8.3-10.6); CREATININE FOR GFR 0.98 MG/DL (0.55-1.30); GLOMERULAR FILTRATION RATE 57.6 (>32); POTASSIUM SERUM 4.1 MMOL/L (3.5-5.1); TOTAL PROTEIN 6.2 G/DL (5.7-8.2)
== END ==
LOC: M LAB 12:07
PROVIDERS: ATTEND Internal Medicine Rheumatology
DX: R79.82 Elevated C-reactive protein (CRP) (principal); M25.50 Pain in unspecified joint; H04.123 Dry eye syndrome of bilateral lacrimal glands; Z79.52 Long term (current) use of systemic steroids

== ENCOUNTER → 2022-08-12 | Outpatient (REF) | payer MEDICARE, MEDICAID ==
[2022-08-12 13:00] LABS: APPEARANCE, URINE MANUAL HAZY (CLEAR); COLOR, URINE MANUAL YELLOW (YELLOW)
[2022-08-12 13:01] LABS: SPECIFIC GRAVITY,URINE MANUAL 1.015 (1.002-1.035)
[2022-08-12 13:02] LABS: BILIRUBIN, URINE MANUAL NEGATIVE (NEGATIVE); BLOOD URINE MANUAL TRACE (NEGATIVE); GLUCOSE, URINE (UA) MANUAL NEGATIVE (NEGATIVE); KETONE, URINE MANUAL NEGATIVE (NEGATIVE); LEUKOCYTE ESTERASE, URINE MAN POSITIVE (NEGATIVE); NITRITE, URINE MANUAL NEGATIVE (NEGATIVE); PROTEIN, URINE MANUAL TRACE mg/dL (NEGATIVE); UROBILINOGEN, URINE MANUAL NORMAL (NORMAL)
[2022-08-12 13:22] LABS: SQUAMOUS EPITHELIAL CELL URINE SMALL AMOUNT /hpf (SMALL AMT); WBC, URINE 15-20 /hpf (0-3)
[2022-08-12 13:23] LABS: BACTERIA, URINE SMALL AMOUNT; HYALINE CAST, URINE NONE SEEN /lpf (0-1)
== END ==
LOC: M SFHCADAM 10:30
PROVIDERS: ATTEND Physician Assistant Medical
DX: R30.0 Dysuria (principal)

== ENCOUNTER → 2022-09-01 | Outpatient (REF) | payer MEDICARE, MEDICAID ==
[2022-09-01 22:32] LABS: APPEARANCE, URINE MANUAL CLEAR (CLEAR); BILIRUBIN, URINE MANUAL NEGATIVE (NEGATIVE); BLOOD URINE MANUAL NEGATIVE (NEGATIVE); COLOR, URINE MANUAL YELLOW (YELLOW); GLUCOSE, URINE (UA) MANUAL NEGATIVE (NEGATIVE); KETONE, URINE MANUAL NEGATIVE (NEGATIVE); LEUKOCYTE ESTERASE, URINE MAN POSITIVE (NEGATIVE); NITRITE, URINE MANUAL NEGATIVE (NEGATIVE); PROTEIN, URINE MANUAL NEGATIVE (NEGATIVE); SPECIFIC GRAVITY,URINE MANUAL 1.015 (1.002-1.035); UROBILINOGEN, URINE MANUAL NORMAL (NORMAL)
[2022-09-01 22:47] LABS: SQUAMOUS EPITHELIAL CELL URINE SMALL AMOUNT /hpf (SMALL AMT)
[2022-09-01 22:48] LABS: BACTERIA, URINE MOD AMOUNT
== END ==
LOC: M LAB REF 21:45
PROVIDERS: ATTEND Physician Assistant
DX: N39.0 Urinary tract infection, site not specified (principal)

== ENCOUNTER → 2022-09-02 | Outpatient (REF) | payer MEDICARE, MEDICAID | LOC: M SFHCRHEU 08:08 | PROVIDERS: ATTEND Internal Medicine Rheumatology | DX: Z53.9 Procedure and treatment not carried out, unspecified reason (principal) ==

== ENCOUNTER 2022-09-12 03:02 | Emergency (ER) | payer MEDICARE, MEDICAID ==
[2022-09-12] MEDS ORDERED: GI COCKTAIL 50ML BTL(HYOSCYAMINE/MAALOX/LIDOCAINE VISCOUS)(1:3:1) PO ONE (03:05)
[2022-09-12 04:23] LABS: BASO % 0.4 % (0.0-1.0); EOS # 0.3 10^3/uL (0.0-0.5); EOS % 6.9 % (0.0-3.0); HEMATOCRIT 38.3 % (36.0-47.0); HEMOGLOBIN 12.5 g/dl (12.0-15.5); LYMPH # 1.2 10^3/uL (1.5-5.0); LYMPH % 24.8 % (24.0-44.0); MEAN CORPUSCULAR HEMOGLOBIN 35.3 pg (27.0-33.0); MEAN CORPUSCULAR HGB CONC 32.6 g/dl (32.0-36.5); MEAN CORPUSCULAR VOLUME 108.2 fl (80.0-96.0); MONO # 0.6 10^3/uL (0.0-0.8); MONO % 13.3 % (2.0-8.0); NEUTROPHILS # 2.6 10^3/uL (1.5-8.5); NEUTROPHILS % 54.2 % (36.0-66.0); PLATELET COUNT, AUTOMATED 182 10^3/uL (150-450); RED BLOOD COUNT 3.54 10^6/uL (4.00-5.40); WHITE BLOOD COUNT 4.8 10^3/uL (4.0-10.0)
[2022-09-12 04:32] LABS: INR 0.91; PROTHROMBIN TIME 12.5 SECONDS (12.5-14.5)
[2022-09-12 04:44] LABS: LIPASE 39 U/L (12-53)
[2022-09-12 04:46] LABS: ALKALINE PHOSPHATASE 159 U/L (46-116); ALT/SGPT 21 U/L (7.0-40); AST/SGOT 16 U/L (<34); BILIRUBIN,DIRECT 0.1 MG/DL (<0.4); BILIRUBIN,TOTAL 0.3 MG/DL (0.3-1.2); BLOOD UREA NITROGEN 28 MG/DL (9-23); CALCIUM LEVEL 8.8 MG/DL (8.3-10.6); CARBON DIOXIDE LEVEL 25 MMOL/L (20-31); CHLORIDE LEVEL 113 MMOL/L (98-107); CPK CREATINE PHOSPHOKINASE 43 U/L (34-145); CREATININE FOR GFR 0.86 MG/DL (0.55-1.30); GLOMERULAR FILTRATION RATE > 60.0 (>32); GLUCOSE, FASTING 99 MG/DL (74-106); MB/CK RELATIVE INDEX 2.32 (< OR =4); POTASSIUM SERUM 4.2 MMOL/L (3.5-5.1); SODIUM LEVEL 145 MMOL/L (136-145); TOTAL PROTEIN 5.5 G/DL (5.7-8.2)
[2022-09-12 04:48] LABS: FREE T4 1.05 NG/DL (0.89-1.76)
[2022-09-12 05:59] LABS: CK-MB VALUE MASS 1.7 NG/ML (<3.6)
[2022-09-12 06:00] LABS: MB/CK RELATIVE INDEX 3.4 (< OR =4)
[2022-09-12] MEDS ORDERED: ISOVUE-370 76% 100ML VIAL As Ordered ONE (07:58)
[2022-09-12 09:40] VITALS: BP 116/57
[2022-09-12 10:01] LABS: APPEARANCE, URINE CLEAR (CLEAR); BACTERIA, URINE AUTO NEGATIVE (NEGATIVE); BILIRUBIN, URINE AUTO NEGATIVE (NEGATIVE); BLOOD, URINE BLOOD NEGATIVE (NEGATIVE); COLOR, URINE YELLOW (YELLOW); GLUCOSE, URINE (UA) AUTO NEGATIVE (NEGATIVE); KETONE, URINE AUTO NEGATIVE (NEGATIVE); LEUKOCYTE ESTERASE, URINE AUTO 1+ (NEGATIVE); NITRITE, URINE AUTO NEGATIVE (NEGATIVE); PROTEIN, URINE AUTO NEGATIVE (NEGATIVE); RBC, URINE AUTO 1 /HPF (0-3); SPECIFIC GRAVITY URINE AUTO 1.025 (1.002-1.035); SQUAMOUS EPITHELIAL CELL UR AU 0 /HPF (0-6); UROBILINOGEN, URINE AUTO 0.2 mg/dL (0.0-2.0); WBC, URINE AUTO 3 /HPF (0-3)
== END 2022-09-12 09:50 | disposition home or self-care (01) ==
LOC: M ED 03:02
DX: R07.9 Chest pain, unspecified (principal); K21.9 Gastro-esophageal reflux disease without esophagitis; I44.4 Left anterior fascicular block; I25.2 Old myocardial infarction; E78.5 Hyperlipidemia, unspecified; J45.909 Unspecified asthma, uncomplicated; Z88.1 Allergy status to other antibiotic agents; Z88.2 Allergy status to sulfonamides; Z88.8 Allergy status to other drugs, medicaments and biological substances; Z91.048 Other nonmedicinal substance allergy status; Z79.82 Long term (current) use of aspirin; Z79.02 Long term (current) use of antithrombotics/antiplatelets; Z79.891 Long term (current) use of opiate analgesic; Z79.899 Other long term (current) drug therapy
CPT/HCPCS: 36415; 71045; 71260; 74177; 80048; 80076; 81001; 82550; 82553; 83690; 83880; 84439; 84443; 84484; 85025; 85610; 93005; 99284; Q9967

== ENCOUNTER → 2022-09-20 | Outpatient (RCR) | payer MEDICARE, MEDICAID ==
[~2022-09-20] MED LIST changes: +MONT-5 PO; -SING10TA32 PO
== END ==
LOC: M PT 09-05 09:48
PROVIDERS: ATTEND Physician Assistant
DX: M54.32 Sciatica, left side (principal)

== ENCOUNTER → 2022-09-22 | Outpatient (REF) | payer MEDICARE, MEDICAID ==
[2022-09-22 12:20] LABS: BASO % 0.6 % (0.0-1.0); EOS # 0.4 10^3/uL (0.0-0.5); EOS % 8.3 % (0.0-3.0); HEMATOCRIT 38.9 % (36.0-47.0); HEMOGLOBIN 12.9 g/dl (12.0-15.5); LYMPH # 1.2 10^3/uL (1.5-5.0); LYMPH % 22.3 % (24.0-44.0); MEAN CORPUSCULAR HEMOGLOBIN 35.5 pg (27.0-33.0); MEAN CORPUSCULAR HGB CONC 33.2 g/dl (32.0-36.5); MEAN CORPUSCULAR VOLUME 107.2 fl (80.0-96.0); MONO # 0.6 10^3/uL (0.0-0.8); MONO % 11.2 % (2.0-8.0); NEUTROPHILS % 57.4 % (36.0-66.0); PLATELET COUNT, AUTOMATED 178 10^3/uL (150-450); RED BLOOD COUNT 3.63 10^6/uL (4.00-5.40); WHITE BLOOD COUNT 5.3 10^3/uL (4.0-10.0)
[2022-09-22 12:43] LABS: ERYTHROCYTE SEDIMENTATION RATE 7 mm/hr (0-30)
[2022-09-22 12:44] LABS: C REACTIVE PROTEIN QUANTITATIV 1.1 MG/DL (<1.0)
[2022-09-22 12:51] LABS: ALBUMIN 3.1 G/DL (3.2-5.2); BILIRUBIN,TOTAL 0.4 MG/DL (0.3-1.2); CALCIUM LEVEL 8.8 MG/DL (8.3-10.6); CREATININE FOR GFR 0.99 MG/DL (0.55-1.30); GLOMERULAR FILTRATION RATE 56.9 (>32); POTASSIUM SERUM 3.6 MMOL/L (3.5-5.1); TOTAL PROTEIN 5.8 G/DL (5.7-8.2)
== END ==
LOC: M SFHCRHEU 07:49
PROVIDERS: ATTEND Internal Medicine Rheumatology
DX: M35.3 Polymyalgia rheumatica (principal); R79.82 Elevated C-reactive protein (CRP); M25.50 Pain in unspecified joint; H04.123 Dry eye syndrome of bilateral lacrimal glands; Z79.52 Long term (current) use of systemic steroids

== ENCOUNTER → 2022-09-23 | Outpatient (REF) | payer MEDICARE, MEDICAID | LOC: M LAB REF 19:47 | PROVIDERS: ATTEND Family Medicine | DX: R19.7 Diarrhea, unspecified (principal) ==

== ENCOUNTER → 2022-09-23 | Outpatient (CLI) | payer MEDICARE, MEDICAID | LOC: M LAB 18:18 | PROVIDERS: ATTEND Family Medicine | DX: R19.7 Diarrhea, unspecified (principal) ==

== ENCOUNTER → 2022-10-07 | Outpatient (CLI) | payer MEDICARE, MEDICAID ==
[2022-10-07 17:44] LABS: APPEARANCE, URINE HAZY (CLEAR); BACTERIA, URINE AUTO 1+ (NEGATIVE); BILIRUBIN, URINE AUTO NEGATIVE (NEGATIVE); BLOOD, URINE BLOOD NEGATIVE (NEGATIVE); COLOR, URINE YELLOW (YELLOW); GLUCOSE, URINE (UA) AUTO NEGATIVE (NEGATIVE); KETONE, URINE AUTO NEGATIVE (NEGATIVE); LEUKOCYTE ESTERASE, URINE AUTO 3+ (NEGATIVE); NITRITE, URINE AUTO NEGATIVE (NEGATIVE); PROTEIN, URINE AUTO NEGATIVE (NEGATIVE); RBC, URINE AUTO 1 /HPF (0-3); SQUAMOUS EPITHELIAL CELL UR AU 1 /HPF (0-6); UROBILINOGEN, URINE AUTO 0.2 mg/dL (0.0-2.0); WBC, URINE AUTO 15 /HPF (0-3)
[2022-10-07 18:03] LABS: BASO % 0.5 % (0.0-1.0); EOS # 0.1 10^3/uL (0.0-0.5); HEMATOCRIT 37.4 % (36.0-47.0); HEMOGLOBIN 12.5 g/dl (12.0-15.5); LYMPH # 0.9 10^3/uL (1.5-5.0); LYMPH % 14.7 % (24.0-44.0); MEAN CORPUSCULAR HEMOGLOBIN 35.3 pg (27.0-33.0); MEAN CORPUSCULAR HGB CONC 33.4 g/dl (32.0-36.5); MEAN CORPUSCULAR VOLUME 105.6 fl (80.0-96.0); MONO # 0.5 10^3/uL (0.0-0.8); MONO % 7.7 % (2.0-8.0); NEUTROPHILS # 4.6 10^3/uL (1.5-8.5); NEUTROPHILS % 75.4 % (36.0-66.0); PLATELET COUNT, AUTOMATED 209 10^3/uL (150-450); RED BLOOD COUNT 3.54 10^6/uL (4.00-5.40); WHITE BLOOD COUNT 6.1 10^3/uL (4.0-10.0)
[2022-10-07 18:17] LABS: INR 0.95; PROTHROMBIN TIME 12.9 SECONDS (12.5-14.5)
[2022-10-07 18:34] LABS: CALCIUM LEVEL 8.9 MG/DL (8.3-10.6); CREATININE FOR GFR 0.99 MG/DL (0.55-1.30); GLOMERULAR FILTRATION RATE 56.9 (>32); POTASSIUM SERUM 4.7 MMOL/L (3.5-5.1)
== END ==
LOC: M PLALAB 15:10
PROVIDERS: ATTEND Orthopaedic Surgery
DX: S46.011D Strain of muscle(s) and tendon(s) of the rotator cuff of right shoulder, subsequent encounter (principal); Z79.890 Hormone replacement therapy

== ENCOUNTER → 2022-10-18 | Outpatient (REF) | payer MEDICARE, MEDICAID | LOC: M SFHCPLAZ 16:58 | PROVIDERS: ATTEND Physician Assistant | DX: R39.9 Unspecified symptoms and signs involving the genitourinary system (principal) ==

== ENCOUNTER → 2022-10-27 | Outpatient (REF) | payer MEDICARE, MEDICAID ==
[2022-10-27 16:13] LABS: ALBUMIN 3.3 G/DL (3.2-5.2); ALKALINE PHOSPHATASE 162 U/L (46-116); ALT/SGPT 24 U/L (7.0-40); AST/SGOT 10 U/L (<34); BILIRUBIN,TOTAL 0.3 MG/DL (0.3-1.2); BLOOD UREA NITROGEN 31 MG/DL (9-23); C REACTIVE PROTEIN QUANTITATIV < 0.40 MG/DL (<1.0); CARBON DIOXIDE LEVEL 31 MMOL/L (20-31); CHLORIDE LEVEL 106 MMOL/L (98-107); CREATININE FOR GFR 1.01 MG/DL (0.55-1.30); GLOMERULAR FILTRATION RATE 55.6 (>32); GLUCOSE, FASTING 105 MG/DL (74-106); POTASSIUM SERUM 4.5 MMOL/L (3.5-5.1); SODIUM LEVEL 143 MMOL/L (136-145); TOTAL PROTEIN 5.9 G/DL (5.7-8.2)
[2022-10-27 16:15] LABS: THYROID STIMULATING HORMONE 0.828 uIU/ML (0.55-4.78)
[2022-10-27 16:16] LABS: FREE T4 1.02 NG/DL (0.89-1.76)
[2022-10-27 16:25] LABS: BASO % 0.3 % (0.0-1.0); EOS # 0.1 10^3/uL (0.0-0.5); HEMATOCRIT 38.9 % (36.0-47.0); HEMOGLOBIN 12.7 g/dl (12.0-15.5); LYMPH # 1.1 10^3/uL (1.5-5.0); LYMPH % 19.1 % (24.0-44.0); MEAN CORPUSCULAR HEMOGLOBIN 35.4 pg (27.0-33.0); MEAN CORPUSCULAR HGB CONC 32.6 g/dl (32.0-36.5); MEAN CORPUSCULAR VOLUME 108.4 fl (80.0-96.0); MONO # 0.5 10^3/uL (0.0-0.8); NEUTROPHILS # 4.2 10^3/uL (1.5-8.5); NEUTROPHILS % 71.1 % (36.0-66.0); PLATELET COUNT, AUTOMATED 206 10^3/uL (150-450); RED BLOOD COUNT 3.59 10^6/uL (4.00-5.40); WHITE BLOOD COUNT 5.9 10^3/uL (4.0-10.0)
[2022-10-27 16:50] LABS: ERYTHROCYTE SEDIMENTATION RATE < 1 mm/hr (0-30)
== END ==
LOC: M SFHCADAM 13:32
PROVIDERS: ATTEND Family Medicine
DX: R79.82 Elevated C-reactive protein (CRP) (principal); M35.3 Polymyalgia rheumatica; M25.50 Pain in unspecified joint; H04.123 Dry eye syndrome of bilateral lacrimal glands; E03.9 Hypothyroidism, unspecified; Z79.52 Long term (current) use of systemic steroids

== ENCOUNTER → 2022-11-03 | Outpatient (CLI) | payer MEDICARE, MEDICAID | LOC: M SOG 13:24 | PROVIDERS: ATTEND Physician Assistant | DX: M25.532 Pain in left wrist (principal) ==

== ENCOUNTER → 2022-11-11 | Outpatient (CLI) | payer MEDICARE, MEDICAID | LOC: M RAD 07:21 | PROVIDERS: ATTEND Orthopaedic Surgery | DX: Z01.818 Encounter for other preprocedural examination (principal) ==

== ENCOUNTER 2022-12-01 10:28 | Inpatient (IN) | payer MEDICARE, MEDICAID ==
[~2022-12-01] VITALS: Ht 152.4 cm; Wt 65.9 kg
[~2022-12-01 10:28] MED LIST changes: -LEVO112T2; +LEVO112T2 PO; +POTA-298; +POTA-298 PO; -POTA1TAB14; -POTA1TAB14 PO
[2022-12-01 11:09] LABS: BASO % 0.2 % (0.0-1.0); EOS % 0.1 % (0.0-3.0); HEMATOCRIT 37.1 % (36.0-47.0); HEMOGLOBIN 12.7 g/dl (12.0-15.5); LYMPH # 1.4 10^3/uL (1.5-5.0); LYMPH % 8.2 % (24.0-44.0); MEAN CORPUSCULAR HEMOGLOBIN 36.1 pg (27.0-33.0); MEAN CORPUSCULAR HGB CONC 34.2 g/dl (32.0-36.5); MEAN CORPUSCULAR VOLUME 105.4 fl (80.0-96.0); MONO % 12.2 % (2.0-8.0); NEUTROPHILS # 13.7 10^3/uL (1.5-8.5); NEUTROPHILS % 78.5 % (36.0-66.0); PLATELET COUNT, AUTOMATED 166 10^3/uL (150-450); RED BLOOD COUNT 3.52 10^6/uL (4.00-5.40); WHITE BLOOD COUNT 17.4 10^3/uL (4.0-10.0)
[2022-12-01 11:37] LABS: ALKALINE PHOSPHATASE 121 U/L (46-116); ALT/SGPT 23 U/L (7.0-40); AST/SGOT 56 U/L (<34); BILIRUBIN,DIRECT 0.6 MG/DL (<0.4); BILIRUBIN,TOTAL 1.2 MG/DL (0.3-1.2); BLOOD UREA NITROGEN 20 MG/DL (9-23); CALCIUM LEVEL 8.4 MG/DL (8.3-10.6); CARBON DIOXIDE LEVEL 28 MMOL/L (20-31); CHLORIDE LEVEL 101 MMOL/L (98-107); CREATININE FOR GFR 0.84 MG/DL (0.55-1.30); GLOMERULAR FILTRATION RATE > 60.0 (>32); GLUCOSE, FASTING 112 MG/DL (74-106); SODIUM LEVEL 138 MMOL/L (136-145); TOTAL PROTEIN 5.8 G/DL (5.7-8.2)
[2022-12-01 11:39] LABS: MONO # 2.1 10^3/uL (0.0-0.8)
[2022-12-01 11:57] LABS: CPK CREATINE PHOSPHOKINASE 833 U/L (34-145)
[2022-12-01 13:04] LABS: RSV AMPLIFICATION NEGATIVE (NEGATIVE)
[2022-12-01] MEDS ORDERED: ACETAMINOPHEN TAB 650MG DOSE (2X325MG) PO ONE (13:40)
[2022-12-01 16:15] VITALS: BP 105/58
[2022-12-01 16:15] LABS: FREE THYROXINE INDEX 3.9 % (1.3-4.8); T UPTAKE 49.1 % (22.5-37.0); THYROXINE (T4) 7.9 UG/DL (4.5-10.9)
[2022-12-01 16:16] LABS: THYROID STIMULATING HORMONE 1.183 uIU/ML (0.55-4.78)
[2022-12-01] MEDS ORDERED: ALBUTEROL 90 MCG/ACT 8GM HFA INHALER INH PRN (16:40)
[2022-12-01] MEDS ORDERED: MELO15TA28 PO (16:41)
[2022-12-01] MEDS ORDERED: OCUVTAB PO (16:41)
[2022-12-01] MEDS ORDERED: PRED1TABL PO (16:41)
[2022-12-01] MEDS ORDERED: CLOP75TA99 PO (16:41)
[2022-12-01] MEDS ORDERED: VITA500T11 PO (16:41)
[2022-12-01] MEDS ORDERED: GABA-1171 PO (16:41)
[2022-12-01] MEDS ORDERED: OXYC-517 PO (16:41)
[2022-12-01] MEDS ORDERED: ATOR1TAB21 PO (16:41)
[2022-12-01] MEDS ORDERED: ACET-840 PO (16:41)
[2022-12-01] MEDS ORDERED: REFR1DRO8 OU (16:41)
[2022-12-01] MEDS ORDERED: HOME MED LIST COMPLETE! XX SCH (16:45)
[2022-12-01] MEDS ORDERED: VANCOMYCIN HCL 750 MG, VIAL MATE ADAPTER 1 EACH in D5W 250 ML IV ONE ×2 (17:00→18:00)
[2022-12-01] MEDS: NS 1,000 ML IV SCH (17:00)
[2022-12-01] MEDS: cefTRIAXone SOD 2 GM in D5W MINI-BAG PLUS 50 ML IV SCH (17:01)
[2022-12-01] MEDS: SUCRALFATE 1 GM TAB PO SCH ×2 (17:30→20:14)
[2022-12-01] MEDS: MONTELUKAST 10 MG TAB PO SCH (18:00)
[2022-12-01] MEDS: ASCORBIC ACID 500 MG TAB PO SCH (18:00)
[2022-12-01 20:00] VITALS: BP 130/66
[2022-12-01] MEDS: ATORVASTATIN 20 MG TAB PO SCH (20:14)
[2022-12-01] MEDS: FAMOTIDINE 20 MG TAB PO SCH (20:14)
[2022-12-01] MEDS: PHENYTOIN ER 100 MG CAP PO SCH (20:14)
[2022-12-01] MEDS: NORTRIPTYLINE 25 MG CAP PO SCH (20:15)
[2022-12-01] MEDS ORDERED: ASCORBIC ACID 500 MG TAB PO SCH (21:00)
[2022-12-01 22:38] LABS: ABG BASE EXCESS 0.9 (-2.0-2.0); ABG O2 SATURATION 96.9 % (95.0-99.0); ABG PARTIAL PRESSURE CO2 33.5 mmHg (35.0-45.0); ABG PARTIAL PRESSURE O2 84.7 mmHg (75.0-100.0); ABG STANDARD HCO3 25.2 MMOL/L. (22.0-26.0); ABG pH (ARTERIAL) 7.473 UNITS (7.350-7.450)
[2022-12-01] MEDS: ONDANSETRON 4MG 2ML VIAL IV PRN (22:58)
[2022-12-02] MEDS: LEVOTHYROXINE 112MCG TABLET (0.112MG) PO SCH (05:22)
[2022-12-02 06:00] VITALS: BP 130/72
[2022-12-02 07:05] LABS: VENOUS BASE EXCESS -0.3 (-2.0-2.0); VENOUS HCO3 23.7 MMOL/L (23.0-27.0); VENOUS O2 SATURATION 94.3 % (60.0-80.0); VENOUS PARTIAL PRESSURE CO2 36.9 mmHg (38.0-50.0); VENOUS PARTIAL PRESSURE O2 67.6 mmHg (30.0-50.0); VENOUS PH 7.426 UNITS (7.330-7.430); VENOUS STANDARD HCO3 24.1 MMOL/L; VENOUS TOTAL CO2 24.9 MMOL/L (24.0-28.0)
[2022-12-02 07:15] LABS: HEMATOCRIT 35.1 % (36.0-47.0); HEMOGLOBIN 11.6 g/dl (12.0-15.5); PLATELET COUNT, AUTOMATED 134 10^3/uL (150-450); RED BLOOD COUNT 3.31 10^6/uL (4.00-5.40); WHITE BLOOD COUNT 14.4 10^3/uL (4.0-10.0)
[2022-12-02 07:43] LABS: ALBUMIN 2.3 G/DL (3.2-5.2); ALKALINE PHOSPHATASE 112 U/L (46-116); ALT/SGPT 28 U/L (7.0-40); AST/SGOT 47 U/L (<34); BILIRUBIN,TOTAL 0.8 MG/DL (0.3-1.2); BLOOD UREA NITROGEN 17 MG/DL (9-23); CALCIUM LEVEL 7.4 MG/DL (8.3-10.6); CARBON DIOXIDE LEVEL 24 MMOL/L (20-31); CHLORIDE LEVEL 103 MMOL/L (98-107); CPK CREATINE PHOSPHOKINASE 1061 U/L (34-145); CREATININE FOR GFR 0.85 MG/DL (0.55-1.30); GLOMERULAR FILTRATION RATE > 60.0 (>32); GLUCOSE, FASTING 90 MG/DL (74-106); MAGNESIUM LEVEL 1.5 MG/DL (1.8-2.4); POTASSIUM SERUM 3.9 MMOL/L (3.5-5.1); SODIUM LEVEL 138 MMOL/L (136-145); TOTAL PROTEIN 5.1 G/DL (5.7-8.2)
[2022-12-02] MEDS: SUCRALFATE 1 GM TAB PO SCH ×4 (07:43→20:10)
[2022-12-02 08:45] VITALS: O2SAT 96
[2022-12-02] MEDS: NS 1,000 ML IV SCH ×2 (08:50→20:10)
[2022-12-02 09:00] VITALS: O2SAT 96
[2022-12-02] MEDS ORDERED: MAG SULF 1GM/100ML (MAG RUN) 1 GM in IV 1 EA IV ONE (09:00)
[2022-12-02] MEDS: ONDANSETRON 4MG 2ML VIAL IV PRN (09:00)
[2022-12-02] MEDS ORDERED: VANCOMYCIN HCL 1,000 MG, VIAL MATE ADAPTER 1 EACH in D5W 250 ML IV SCH ×2 (12:00)
[2022-12-02] MEDS: MELOXICAM (MOBIC) 7.5 MG TAB PO SCH (13:07)
[2022-12-02] MEDS: predniSONE 1 MG TAB PO SCH (13:07)
[2022-12-02] MEDS: CLOPIDOGREL 75 MG TAB PO SCH (13:07)
[2022-12-02] MEDS: NYSTATIN 500,000U/5ML SUSP UDC SS SCH ×3 (13:07→20:10)
[2022-12-02] MEDS: PHENYTOIN ER 100 MG CAP PO SCH ×2 (13:08→20:10)
[2022-12-02] MEDS: predniSONE 5 MG TAB PO SCH (13:08)
[2022-12-02] MEDS: ACETAMINOPHEN TAB 650MG DOSE (2X325MG) PO PRN (13:09)
[2022-12-02] MEDS: OCUVITE 1 TAB PO SCH (13:10)
[2022-12-02 14:00] VITALS: BP 109/64
[2022-12-02 16:00] VITALS: O2SAT 96
[2022-12-02] MEDS: ASCORBIC ACID 500 MG TAB PO SCH (16:52)
[2022-12-02] MEDS: MONTELUKAST 10 MG TAB PO SCH (16:52)
[2022-12-02] MEDS: cefTRIAXone SOD 2 GM in D5W MINI-BAG PLUS 50 ML IV SCH (16:52)
[2022-12-02] MEDS ORDERED: diphenhydrAMINE 50MG/ML VIAL IV ONE (19:55)
[2022-12-02] MEDS ORDERED: OLANZapine INTRAMUSCULAR 10MG VIAL IM PRN (19:55)
[2022-12-02] MEDS: FAMOTIDINE 20 MG TAB PO SCH (20:10)
[2022-12-02] MEDS: ATORVASTATIN 20 MG TAB PO SCH (20:10)
[2022-12-02] MEDS: NORTRIPTYLINE 25 MG CAP PO SCH (20:10)
[2022-12-02 21:05] VITALS: BP 107/62
[2022-12-03] MEDS: LEVOTHYROXINE 112MCG TABLET (0.112MG) PO SCH (05:23)
[2022-12-03 06:00] VITALS: BP 113/60
[2022-12-03 06:06] LABS: BASO % 0.1 % (0.0-1.0); EOS % 0.4 % (0.0-3.0); HEMATOCRIT 30.3 % (36.0-47.0); LYMPH # 0.5 10^3/uL (1.5-5.0); LYMPH % 4.9 % (24.0-44.0); MEAN CORPUSCULAR HEMOGLOBIN 35.3 pg (27.0-33.0); MEAN CORPUSCULAR VOLUME 107.1 fl (80.0-96.0); MONO # 0.7 10^3/uL (0.0-0.8); MONO % 6.9 % (2.0-8.0); NEUTROPHILS # 9.1 10^3/uL (1.5-8.5); NEUTROPHILS % 86.9 % (36.0-66.0); PLATELET COUNT, AUTOMATED 121 10^3/uL (150-450); RED BLOOD COUNT 2.83 10^6/uL (4.00-5.40); WHITE BLOOD COUNT 10.5 10^3/uL (4.0-10.0)
[2022-12-03 06:31] LABS: ALBUMIN 1.9 G/DL (3.2-5.2); ALKALINE PHOSPHATASE 99 U/L (46-116); ALT/SGPT 18 U/L (7.0-40); AST/SGOT 31 U/L (<34); BILIRUBIN,TOTAL 0.5 MG/DL (0.3-1.2); BLOOD UREA NITROGEN 17 MG/DL (9-23); CALCIUM LEVEL 7.2 MG/DL (8.3-10.6); CARBON DIOXIDE LEVEL 21 MMOL/L (20-31); CHLORIDE LEVEL 106 MMOL/L (98-107); CREATININE FOR GFR 0.88 MG/DL (0.55-1.30); GLOMERULAR FILTRATION RATE > 60.0 (>32); GLUCOSE, FASTING 109 MG/DL (74-106); MAGNESIUM LEVEL 1.9 MG/DL (1.8-2.4); POTASSIUM SERUM 3.5 MMOL/L (3.5-5.1); SODIUM LEVEL 137 MMOL/L (136-145); TOTAL PROTEIN 4.4 G/DL (5.7-8.2)
[2022-12-03 08:47] LABS: CPK CREATINE PHOSPHOKINASE 737 U/L (34-145)
[2022-12-03] MEDS: NS 1,000 ML IV SCH (08:49)
[2022-12-03] MEDS: NYSTATIN 500,000U/5ML SUSP UDC SS SCH ×3 (10:30→20:21)
[2022-12-03] MEDS: SUCRALFATE 1 GM TAB PO SCH ×4 (10:31→20:20)
[2022-12-03] MEDS: OCUVITE 1 TAB PO SCH (10:31)
[2022-12-03] MEDS: predniSONE 5 MG TAB PO SCH (10:31)
[2022-12-03] MEDS: ACETAMINOPHEN 500 MG TAB PO PRN (10:34)
[2022-12-03] MEDS: predniSONE 1 MG TAB PO SCH (12:59)
[2022-12-03] MEDS: CLOPIDOGREL 75 MG TAB PO SCH (12:59)
[2022-12-03] MEDS: PHENYTOIN ER 100 MG CAP PO SCH ×2 (12:59→20:21)
[2022-12-03] MEDS ORDERED: VANCOMYCIN HCL 750 MG, VIAL MATE ADAPTER 1 EACH in D5W 250 ML IV SCH (13:00)
[2022-12-03] MEDS: MELOXICAM (MOBIC) 7.5 MG TAB PO SCH (13:00)
[2022-12-03 14:00] VITALS: BP 110/53
[2022-12-03] MEDS ORDERED: VANCOMYCIN HCL 500 MG in D5W MINI-BAG PLUS 100 ML IV SCH (14:00)
[2022-12-03] MEDS: cefTRIAXone SOD 2 GM in D5W MINI-BAG PLUS 50 ML IV SCH (16:57)
[2022-12-03] MEDS: MONTELUKAST 10 MG TAB PO SCH (16:57)
[2022-12-03] MEDS: ASCORBIC ACID 500 MG TAB PO SCH (16:58)
[2022-12-03] MEDS: FAMOTIDINE 20 MG TAB PO SCH (20:20)
[2022-12-03] MEDS: NORTRIPTYLINE 25 MG CAP PO SCH (20:20)
[2022-12-03] MEDS: ATORVASTATIN 20 MG TAB PO SCH (20:21)
[2022-12-03] MEDS: HEPARIN SOD (PORCINE) 5000UNITS/ML 1ML VIAL/SYRINGE SQ SCH (20:21)
[2022-12-03 22:00] VITALS: BP 114/62
[2022-12-04] MEDS: LEVOTHYROXINE 112MCG TABLET (0.112MG) PO SCH (05:30)
[2022-12-04 06:00] VITALS: BP 121/69
[2022-12-04 06:35] LABS: BASO % 0.4 % (0.0-1.0); EOS # 0.2 10^3/uL (0.0-0.5); EOS % 2.6 % (0.0-3.0); HEMATOCRIT 30.1 % (36.0-47.0); LYMPH # 0.6 10^3/uL (1.5-5.0); LYMPH % 7.6 % (24.0-44.0); MEAN CORPUSCULAR HEMOGLOBIN 34.7 pg (27.0-33.0); MEAN CORPUSCULAR HGB CONC 33.2 g/dl (32.0-36.5); MEAN CORPUSCULAR VOLUME 104.5 fl (80.0-96.0); MONO # 0.6 10^3/uL (0.0-0.8); MONO % 7.4 % (2.0-8.0); NEUTROPHILS # 6.9 10^3/uL (1.5-8.5); NEUTROPHILS % 81.5 % (36.0-66.0); PLATELET COUNT, AUTOMATED 162 10^3/uL (150-450); RED BLOOD COUNT 2.88 10^6/uL (4.00-5.40); WHITE BLOOD COUNT 8.4 10^3/uL (4.0-10.0)
[2022-12-04 06:59] LABS: ALBUMIN 1.9 G/DL (3.2-5.2); ALKALINE PHOSPHATASE 111 U/L (46-116); ALT/SGPT 24 U/L (7.0-40); AST/SGOT 48 U/L (<34); BILIRUBIN,TOTAL 0.5 MG/DL (0.3-1.2); BLOOD UREA NITROGEN 16 MG/DL (9-23); CALCIUM LEVEL 7.7 MG/DL (8.3-10.6); CARBON DIOXIDE LEVEL 24 MMOL/L (20-31); CHLORIDE LEVEL 107 MMOL/L (98-107); CREATININE FOR GFR 0.85 MG/DL (0.55-1.30); GLOMERULAR FILTRATION RATE > 60.0 (>32); GLUCOSE, FASTING 101 MG/DL (74-106); MAGNESIUM LEVEL 2.2 MG/DL (1.8-2.4); POTASSIUM SERUM 3.5 MMOL/L (3.5-5.1); SODIUM LEVEL 140 MMOL/L (136-145); TOTAL PROTEIN 4.9 G/DL (5.7-8.2)
[2022-12-04] MEDS: predniSONE 5 MG TAB PO SCH (08:45)
[2022-12-04] MEDS: MELOXICAM (MOBIC) 7.5 MG TAB PO SCH (08:45)
[2022-12-04] MEDS: SUCRALFATE 1 GM TAB PO SCH ×4 (08:45→20:41)
[2022-12-04] MEDS: predniSONE 1 MG TAB PO SCH (08:45)
[2022-12-04] MEDS: HEPARIN SOD (PORCINE) 5000UNITS/ML 1ML VIAL/SYRINGE SQ SCH ×2 (08:45→20:41)
[2022-12-04] MEDS: OCUVITE 1 TAB PO SCH (08:46)
[2022-12-04] MEDS: NYSTATIN 500,000U/5ML SUSP UDC SS SCH ×4 (08:47→20:46)
[2022-12-04 14:00] VITALS: BP 122/67
[2022-12-04] MEDS: PHENYTOIN ER 100 MG CAP PO SCH ×2 (14:04→20:40)
[2022-12-04] MEDS: CLOPIDOGREL 75 MG TAB PO SCH (14:04)
[2022-12-04] MEDS: MONTELUKAST 10 MG TAB PO SCH (17:02)
[2022-12-04] MEDS: ASCORBIC ACID 500 MG TAB PO SCH (17:02)
[2022-12-04] MEDS: cefTRIAXone SOD 2 GM in D5W MINI-BAG PLUS 50 ML IV SCH (17:02)
[2022-12-04] MEDS: NORTRIPTYLINE 25 MG CAP PO SCH (20:40)
[2022-12-04] MEDS: ATORVASTATIN 20 MG TAB PO SCH (20:40)
[2022-12-04] MEDS: FAMOTIDINE 20 MG TAB PO SCH (20:40)
[2022-12-04 21:10] VITALS: BP 122/65
[2022-12-04] MEDS: ACETAMINOPHEN TAB 650MG DOSE (2X325MG) PO PRN (22:20)
[2022-12-05 05:00] VITALS: BP 122/69
[2022-12-05] MEDS: LEVOTHYROXINE 112MCG TABLET (0.112MG) PO SCH (06:06)
[2022-12-05 06:40] LABS: BASO % 0.5 % (0.0-1.0); EOS # 0.2 10^3/uL (0.0-0.5); EOS % 3.8 % (0.0-3.0); HEMATOCRIT 29.3 % (36.0-47.0); HEMOGLOBIN 9.6 g/dl (12.0-15.5); LYMPH # 0.5 10^3/uL (1.5-5.0); LYMPH % 9.1 % (24.0-44.0); MEAN CORPUSCULAR HGB CONC 32.8 g/dl (32.0-36.5); MEAN CORPUSCULAR VOLUME 103.9 fl (80.0-96.0); MONO # 0.5 10^3/uL (0.0-0.8); MONO % 9.5 % (2.0-8.0); NEUTROPHILS # 4.2 10^3/uL (1.5-8.5); NEUTROPHILS % 76.4 % (36.0-66.0); PLATELET COUNT, AUTOMATED 162 10^3/uL (150-450); RED BLOOD COUNT 2.82 10^6/uL (4.00-5.40); WHITE BLOOD COUNT 5.5 10^3/uL (4.0-10.0)
[2022-12-05 07:14] LABS: ALBUMIN 1.9 G/DL (3.2-5.2); ALKALINE PHOSPHATASE 102 U/L (46-116); ALT/SGPT 29 U/L (7.0-40); AST/SGOT 46 U/L (<34); BILIRUBIN,TOTAL 0.4 MG/DL (0.3-1.2); BLOOD UREA NITROGEN 17 MG/DL (9-23); CALCIUM LEVEL 7.7 MG/DL (8.3-10.6); CARBON DIOXIDE LEVEL 24 MMOL/L (20-31); CHLORIDE LEVEL 109 MMOL/L (98-107); CREATININE FOR GFR 0.85 MG/DL (0.55-1.30); GLOMERULAR FILTRATION RATE > 60.0 (>32); GLUCOSE, FASTING 92 MG/DL (74-106); POTASSIUM SERUM 3.4 MMOL/L (3.5-5.1); SODIUM LEVEL 138 MMOL/L (136-145); TOTAL PROTEIN 4.7 G/DL (5.7-8.2)
[2022-12-05 07:16] LABS: CPK CREATINE PHOSPHOKINASE 225 U/L (34-145)
[2022-12-05] MEDS ORDERED: POTASSIUM CHLORIDE 10MEQ SR TABLET PO ONE (08:10)
[2022-12-05] MEDS: SUCRALFATE 1 GM TAB PO SCH ×4 (08:59→20:19)
[2022-12-05] MEDS: predniSONE 5 MG TAB PO SCH (08:59)
[2022-12-05] MEDS: predniSONE 1 MG TAB PO SCH (08:59)
[2022-12-05] MEDS: HEPARIN SOD (PORCINE) 5000UNITS/ML 1ML VIAL/SYRINGE SQ SCH ×2 (08:59→20:20)
[2022-12-05] MEDS: NYSTATIN 500,000U/5ML SUSP UDC SS SCH ×3 (09:00→20:20)
[2022-12-05] MEDS: OCUVITE 1 TAB PO SCH (09:00)
[2022-12-05] MEDS: MELOXICAM (MOBIC) 7.5 MG TAB PO SCH (09:00)
[2022-12-05] MEDS: CLOPIDOGREL 75 MG TAB PO SCH (13:04)
[2022-12-05] MEDS: PHENYTOIN ER 100 MG CAP PO SCH ×2 (13:05→20:19)
[2022-12-05 14:00] VITALS: BP 113/59
[2022-12-05] MEDS: cefTRIAXone SOD 2 GM in D5W MINI-BAG PLUS 50 ML IV SCH (16:35)
[2022-12-05] MEDS: MONTELUKAST 10 MG TAB PO SCH (17:52)
[2022-12-05] MEDS: ASCORBIC ACID 500 MG TAB PO SCH (17:52)
[2022-12-05 20:00] VITALS: BP 111/61
[2022-12-05] MEDS: FAMOTIDINE 20 MG TAB PO SCH (20:19)
[2022-12-05] MEDS: NORTRIPTYLINE 25 MG CAP PO SCH (20:19)
[2022-12-05] MEDS: ACETAMINOPHEN TAB 650MG DOSE (2X325MG) PO PRN (20:19)
[2022-12-05] MEDS: ATORVASTATIN 20 MG TAB PO SCH (20:19)
[2022-12-06] MEDS: LEVOTHYROXINE 112MCG TABLET (0.112MG) PO SCH (05:57)
[2022-12-06 06:00] VITALS: BP 126/71
[2022-12-06 06:27] LABS: BASO % 0.5 % (0.0-1.0); EOS # 0.2 10^3/uL (0.0-0.5); EOS % 4.3 % (0.0-3.0); HEMATOCRIT 28.3 % (36.0-47.0); HEMOGLOBIN 9.3 g/dl (12.0-15.5); LYMPH # 0.7 10^3/uL (1.5-5.0); MEAN CORPUSCULAR HEMOGLOBIN 34.3 pg (27.0-33.0); MEAN CORPUSCULAR HGB CONC 32.9 g/dl (32.0-36.5); MEAN CORPUSCULAR VOLUME 104.4 fl (80.0-96.0); MONO # 0.7 10^3/uL (0.0-0.8); MONO % 11.8 % (2.0-8.0); NEUTROPHILS # 3.9 10^3/uL (1.5-8.5); NEUTROPHILS % 69.5 % (36.0-66.0); PLATELET COUNT, AUTOMATED 182 10^3/uL (150-450); RED BLOOD COUNT 2.71 10^6/uL (4.00-5.40); WHITE BLOOD COUNT 5.6 10^3/uL (4.0-10.0)
[2022-12-06 06:43] LABS: ALBUMIN 1.9 G/DL (3.2-5.2); ALKALINE PHOSPHATASE 111 U/L (46-116); ALT/SGPT 24 U/L (7.0-40); AST/SGOT 29 U/L (<34); BILIRUBIN,TOTAL 0.3 MG/DL (0.3-1.2); BLOOD UREA NITROGEN 16 MG/DL (9-23); CALCIUM LEVEL 7.8 MG/DL (8.3-10.6); CARBON DIOXIDE LEVEL 23 MMOL/L (20-31); CHLORIDE LEVEL 108 MMOL/L (98-107); CREATININE FOR GFR 0.85 MG/DL (0.55-1.30); GLOMERULAR FILTRATION RATE > 60.0 (>32); GLUCOSE, FASTING 90 MG/DL (74-106); MAGNESIUM LEVEL 1.9 MG/DL (1.8-2.4); POTASSIUM SERUM 3.7 MMOL/L (3.5-5.1); SODIUM LEVEL 141 MMOL/L (136-145); TOTAL PROTEIN 4.6 G/DL (5.7-8.2)
[2022-12-06] MEDS: OCUVITE 1 TAB PO SCH (09:01)
[2022-12-06] MEDS: predniSONE 1 MG TAB PO SCH (09:01)
[2022-12-06] MEDS: MELOXICAM (MOBIC) 7.5 MG TAB PO SCH (09:01)
[2022-12-06] MEDS: predniSONE 5 MG TAB PO SCH (09:01)
[2022-12-06] MEDS: NYSTATIN 500,000U/5ML SUSP UDC SS SCH ×3 (09:01→20:27)
[2022-12-06] MEDS: SUCRALFATE 1 GM TAB PO SCH ×4 (09:01→20:27)
[2022-12-06] MEDS: HEPARIN SOD (PORCINE) 5000UNITS/ML 1ML VIAL/SYRINGE SQ SCH ×2 (09:02→20:27)
[2022-12-06] MEDS: CLOPIDOGREL 75 MG TAB PO SCH (12:11)
[2022-12-06] MEDS: PHENYTOIN ER 100 MG CAP PO SCH ×2 (12:11→20:27)
[2022-12-06 14:00] VITALS: BP 131/69
[2022-12-06] MEDS: MONTELUKAST 10 MG TAB PO SCH (17:18)
[2022-12-06] MEDS: ASCORBIC ACID 500 MG TAB PO SCH (17:18)
[2022-12-06] MEDS: FAMOTIDINE 20 MG TAB PO SCH (20:27)
[2022-12-06] MEDS: NORTRIPTYLINE 25 MG CAP PO SCH (20:27)
[2022-12-06] MEDS: ATORVASTATIN 20 MG TAB PO SCH (20:27)
[2022-12-07 06:03] VITALS: BP 104/66
[2022-12-07] MEDS: LEVOTHYROXINE 112MCG TABLET (0.112MG) PO SCH (06:07)
[2022-12-07] MEDS: NYSTATIN 500,000U/5ML SUSP UDC SS SCH ×3 (08:21→21:56)
[2022-12-07] MEDS: predniSONE 1 MG TAB PO SCH (08:21)
[2022-12-07] MEDS: predniSONE 5 MG TAB PO SCH (08:21)
[2022-12-07] MEDS: SUCRALFATE 1 GM TAB PO SCH ×4 (08:21→21:54)
[2022-12-07] MEDS: OCUVITE 1 TAB PO SCH (08:21)
[2022-12-07] MEDS: MELOXICAM (MOBIC) 7.5 MG TAB PO SCH (08:21)
[2022-12-07] MEDS: HEPARIN SOD (PORCINE) 5000UNITS/ML 1ML VIAL/SYRINGE SQ SCH ×2 (08:22→21:55)
[2022-12-07] MEDS: CLOPIDOGREL 75 MG TAB PO SCH (13:38)
[2022-12-07] MEDS: PHENYTOIN ER 100 MG CAP PO SCH ×2 (13:38→21:55)
[2022-12-07] MEDS: MONTELUKAST 10 MG TAB PO SCH (17:06)
[2022-12-07] MEDS: FLUTICASONE PROP 0.05% NASAL SPRAY 16 GM (FLONASE) NARES SCH (17:06)
[2022-12-07] MEDS: ASCORBIC ACID 500 MG TAB PO SCH (17:06)
[2022-12-07] MEDS: ATORVASTATIN 20 MG TAB PO SCH (21:54)
[2022-12-07] MEDS: FAMOTIDINE 20 MG TAB PO SCH (21:54)
[2022-12-07] MEDS: NORTRIPTYLINE 25 MG CAP PO SCH (21:55)
[2022-12-07] MEDS: POLYVINYL ALCOHOL OPHTH SOLN 15ML (LIQUITEARS) OU PRN (21:58)
[2022-12-07] MEDS: ACETAMINOPHEN 500 MG TAB PO PRN (21:59)
[2022-12-08 06:00] VITALS: BP 107/67
[2022-12-08] MEDS: LEVOTHYROXINE 112MCG TABLET (0.112MG) PO SCH (06:23)
[2022-12-08] MEDS: POLYVINYL ALCOHOL OPHTH SOLN 15ML (LIQUITEARS) OU PRN ×2 (08:50→20:50)
[2022-12-08] MEDS: NYSTATIN 500,000U/5ML SUSP UDC SS SCH ×3 (08:50→20:47)
[2022-12-08] MEDS: SUCRALFATE 1 GM TAB PO SCH ×4 (08:50→20:45)
[2022-12-08] MEDS: predniSONE 5 MG TAB PO SCH (08:50)
[2022-12-08] MEDS: MELOXICAM (MOBIC) 7.5 MG TAB PO SCH (08:50)
[2022-12-08] MEDS: predniSONE 1 MG TAB PO SCH (08:50)
[2022-12-08] MEDS: OCUVITE 1 TAB PO SCH (08:50)
[2022-12-08] MEDS: FLUTICASONE PROP 0.05% NASAL SPRAY 16 GM (FLONASE) NARES SCH (08:50)
[2022-12-08] MEDS: HEPARIN SOD (PORCINE) 5000UNITS/ML 1ML VIAL/SYRINGE SQ SCH ×2 (08:51→20:46)
[2022-12-08] MEDS: PHENYTOIN ER 100 MG CAP PO SCH ×2 (12:09→20:46)
[2022-12-08] MEDS: CLOPIDOGREL 75 MG TAB PO SCH (12:09)
[2022-12-08] MEDS: ACETAMINOPHEN 500 MG TAB PO PRN ×2 (12:09→20:46)
[2022-12-08] MEDS: ASCORBIC ACID 500 MG TAB PO SCH (17:04)
[2022-12-08] MEDS: MONTELUKAST 10 MG TAB PO SCH (17:04)
[2022-12-08] MEDS: NORTRIPTYLINE 25 MG CAP PO SCH (20:45)
[2022-12-08] MEDS: ATORVASTATIN 20 MG TAB PO SCH (20:45)
[2022-12-08] MEDS: FAMOTIDINE 20 MG TAB PO SCH (20:46)
[2022-12-09] MEDS: LEVOTHYROXINE 112MCG TABLET (0.112MG) PO SCH (05:28)
[2022-12-09 06:00] VITALS: BP 110/70
[2022-12-09] MEDS: SUCRALFATE 1 GM TAB PO SCH ×4 (07:30→21:01)
[2022-12-09] MEDS: MELOXICAM (MOBIC) 7.5 MG TAB PO SCH (09:43)
[2022-12-09] MEDS: POLYVINYL ALCOHOL OPHTH SOLN 15ML (LIQUITEARS) OU PRN ×2 (09:43→21:02)
[2022-12-09] MEDS: NYSTATIN 500,000U/5ML SUSP UDC SS SCH ×3 (09:43→21:02)
[2022-12-09] MEDS: OCUVITE 1 TAB PO SCH (09:43)
[2022-12-09] MEDS: predniSONE 5 MG TAB PO SCH (09:43)
[2022-12-09] MEDS: predniSONE 1 MG TAB PO SCH (09:43)
[2022-12-09] MEDS: FLUTICASONE PROP 0.05% NASAL SPRAY 16 GM (FLONASE) NARES SCH (09:43)
[2022-12-09] MEDS: HEPARIN SOD (PORCINE) 5000UNITS/ML 1ML VIAL/SYRINGE SQ SCH ×2 (09:44→21:05)
[2022-12-09] MEDS: ACETAMINOPHEN 500 MG TAB PO PRN (10:37)
[2022-12-09] MEDS: CLOPIDOGREL 75 MG TAB PO SCH (11:28)
[2022-12-09] MEDS: PHENYTOIN ER 100 MG CAP PO SCH ×2 (11:28→21:02)
[2022-12-09] MEDS: ASCORBIC ACID 500 MG TAB PO SCH (17:05)
[2022-12-09] MEDS: MONTELUKAST 10 MG TAB PO SCH (17:05)
[2022-12-09] MEDS: FAMOTIDINE 20 MG TAB PO SCH (21:01)
[2022-12-09] MEDS: NORTRIPTYLINE 25 MG CAP PO SCH (21:01)
[2022-12-09] MEDS: ATORVASTATIN 20 MG TAB PO SCH (21:01)
[2022-12-10] MEDS: LEVOTHYROXINE 112MCG TABLET (0.112MG) PO SCH (05:54)
[2022-12-10 06:00] VITALS: BP 116/67
[2022-12-10] MEDS: SUCRALFATE 1 GM TAB PO SCH ×4 (07:30→20:31)
[2022-12-10] MEDS: predniSONE 5 MG TAB PO SCH (09:41)
[2022-12-10] MEDS: NYSTATIN 500,000U/5ML SUSP UDC SS SCH ×3 (09:42→20:31)
[2022-12-10] MEDS: OCUVITE 1 TAB PO SCH (09:42)
[2022-12-10] MEDS: predniSONE 1 MG TAB PO SCH (09:42)
[2022-12-10] MEDS: MELOXICAM (MOBIC) 7.5 MG TAB PO SCH (09:42)
[2022-12-10] MEDS: HEPARIN SOD (PORCINE) 5000UNITS/ML 1ML VIAL/SYRINGE SQ SCH ×2 (09:51→20:31)
[2022-12-10] MEDS: ACETAMINOPHEN 500 MG TAB PO PRN ×2 (09:53→19:08)
[2022-12-10] MEDS: FLUTICASONE PROP 0.05% NASAL SPRAY 16 GM (FLONASE) NARES SCH (09:54)
[2022-12-10] MEDS: POLYVINYL ALCOHOL OPHTH SOLN 15ML (LIQUITEARS) OU PRN (10:03)
[2022-12-10] MEDS: CLOPIDOGREL 75 MG TAB PO SCH (12:26)
[2022-12-10] MEDS: PHENYTOIN ER 100 MG CAP PO SCH ×2 (12:26→20:31)
[2022-12-10] MEDS: MONTELUKAST 10 MG TAB PO SCH (17:18)
[2022-12-10] MEDS: ASCORBIC ACID 500 MG TAB PO SCH (17:18)
[2022-12-10] MEDS ORDERED: FUROSEMIDE 20 MG TAB PO ONE (18:25)
[2022-12-10] MEDS: ATORVASTATIN 20 MG TAB PO SCH (20:31)
[2022-12-10] MEDS: NORTRIPTYLINE 25 MG CAP PO SCH (20:31)
[2022-12-10] MEDS: FAMOTIDINE 20 MG TAB PO SCH (20:31)
[2022-12-11] MEDS: ACETAMINOPHEN 500 MG TAB PO PRN ×2 (03:14→17:18)
[2022-12-11 05:25] VITALS: BP 118/68
[2022-12-11] MEDS: LEVOTHYROXINE 112MCG TABLET (0.112MG) PO SCH (06:43)
[2022-12-11] MEDS: OCUVITE 1 TAB PO SCH (08:06)
[2022-12-11] MEDS: FUROSEMIDE 20 MG TAB PO SCH (08:06)
[2022-12-11] MEDS: predniSONE 1 MG TAB PO SCH (08:06)
[2022-12-11] MEDS: predniSONE 5 MG TAB PO SCH (08:06)
[2022-12-11] MEDS: SUCRALFATE 1 GM TAB PO SCH ×4 (08:06→22:12)
[2022-12-11] MEDS: NYSTATIN 500,000U/5ML SUSP UDC SS SCH ×3 (08:06→22:11)
[2022-12-11] MEDS: MELOXICAM (MOBIC) 7.5 MG TAB PO SCH (08:06)
[2022-12-11] MEDS: HEPARIN SOD (PORCINE) 5000UNITS/ML 1ML VIAL/SYRINGE SQ SCH ×2 (08:07→22:11)
[2022-12-11] MEDS: POLYVINYL ALCOHOL OPHTH SOLN 15ML (LIQUITEARS) OU PRN (08:07)
[2022-12-11] MEDS: FLUTICASONE PROP 0.05% NASAL SPRAY 16 GM (FLONASE) NARES SCH (08:07)
[2022-12-11] MEDS: PHENYTOIN ER 100 MG CAP PO SCH ×2 (12:19→22:11)
[2022-12-11] MEDS: CLOPIDOGREL 75 MG TAB PO SCH (12:19)
[2022-12-11] MEDS: POLYVINYL ALCOHOL OPHTH SOLN 15ML (LIQUITEARS) OU SCH ×3 (13:24→22:11)
[2022-12-11] MEDS: ASCORBIC ACID 500 MG TAB PO SCH (17:18)
[2022-12-11] MEDS: MONTELUKAST 10 MG TAB PO SCH (17:18)
[2022-12-11] MEDS: NORTRIPTYLINE 25 MG CAP PO SCH (22:11)
[2022-12-11] MEDS: ATORVASTATIN 20 MG TAB PO SCH (22:12)
[2022-12-11] MEDS: FAMOTIDINE 20 MG TAB PO SCH (22:12)
[2022-12-12] MEDS: ACETAMINOPHEN 500 MG TAB PO PRN (00:06)
[2022-12-12] MEDS: LEVOTHYROXINE 112MCG TABLET (0.112MG) PO SCH (05:46)
[2022-12-12] MEDS: FUROSEMIDE 20 MG TAB PO SCH (07:54)
[2022-12-12] MEDS: SUCRALFATE 1 GM TAB PO SCH ×2 (07:54→12:19)
[2022-12-12] MEDS: FLUTICASONE PROP 0.05% NASAL SPRAY 16 GM (FLONASE) NARES SCH (07:54)
[2022-12-12] MEDS: POLYVINYL ALCOHOL OPHTH SOLN 15ML (LIQUITEARS) OU SCH ×2 (07:54→12:19)
[2022-12-12] MEDS: predniSONE 1 MG TAB PO SCH (07:55)
[2022-12-12] MEDS: MELOXICAM (MOBIC) 7.5 MG TAB PO SCH (07:55)
[2022-12-12] MEDS: HEPARIN SOD (PORCINE) 5000UNITS/ML 1ML VIAL/SYRINGE SQ SCH (07:55)
[2022-12-12] MEDS: OCUVITE 1 TAB PO SCH (07:55)
[2022-12-12] MEDS: predniSONE 5 MG TAB PO SCH (07:55)
[2022-12-12] MEDS: NYSTATIN 500,000U/5ML SUSP UDC SS SCH (07:55)
[2022-12-12] MEDS: CLOPIDOGREL 75 MG TAB PO SCH (12:19)
[2022-12-12] MEDS: PHENYTOIN ER 100 MG CAP PO SCH (12:19)
== END 2022-12-12 14:30 | disposition home health service (06) | DRG 871 ==
LOC: M ED 10:28 → M ED INP 14:51 → M MSPAV 16:15
PROVIDERS: ADMIT Family Medicine; ATTEND Family Medicine
DX: A41.9 Sepsis, unspecified organism (principal); G93.41 Metabolic encephalopathy; J69.0 Pneumonitis due to inhalation of food and vomit; E87.20 Acidosis, unspecified; E87.3 Alkalosis; M62.82 Rhabdomyolysis; I25.10 Atherosclerotic heart disease of native coronary artery without angina pectoris; G40.909 Epilepsy, unspecified, not intractable, without status epilepticus; K76.0 Fatty (change of) liver, not elsewhere classified; E03.9 Hypothyroidism, unspecified; I25.2 Old myocardial infarction; Z86.73 Personal history of transient ischemic attack (TIA), and cerebral infarction without residual deficits; Z96.611 Presence of right artificial shoulder joint; J45.909 Unspecified asthma, uncomplicated; Z88.2 Allergy status to sulfonamides; Z88.8 Allergy status to other drugs, medicaments and biological substances; Z79.899 Other long term (current) drug therapy

== ENCOUNTER → 2022-12-13 | Outpatient (REF) | payer MEDICARE, MEDICAID ==
[~2022-12-13] MED LIST changes: +ACET-840 PO; +CLOP75TA99 PO; +GABA-1171 PO; +MELO15TA28 PO; +OCUVTAB PO; +OXYC-517 PO; +PRED1TABL PO; +REFR1DRO8 OU; +VITA500T11 PO
== END ==
LOC: M SFHCADAM 09:30
PROVIDERS: ATTEND Family Medicine
DX: J69.0 Pneumonitis due to inhalation of food and vomit (principal); M35.3 Polymyalgia rheumatica; I25.2 Old myocardial infarction

== ENCOUNTER → 2022-12-13 | Outpatient (CLI) | payer MEDICARE, MEDICAID | LOC: M ADAMS 09:45 | PROVIDERS: ATTEND Family Medicine | DX: J69.0 Pneumonitis due to inhalation of food and vomit (principal) ==

== ENCOUNTER → 2022-12-15 | Outpatient (CLI) | payer MEDICARE, MEDICAID ==
[2022-12-15 14:48] LABS: HEMATOCRIT 30.5 % (36.0-47.0); HEMOGLOBIN 9.8 g/dl (12.0-15.5); MEAN CORPUSCULAR HGB CONC 32.1 g/dl (32.0-36.5); MEAN CORPUSCULAR VOLUME 108.9 fl (80.0-96.0); PLATELET COUNT, AUTOMATED 364 10^3/uL (150-450); WHITE BLOOD COUNT 7.9 10^3/uL (4.0-10.0)
[2022-12-15 15:23] LABS: ALBUMIN 2.6 G/DL (3.2-5.2); ALKALINE PHOSPHATASE 275 U/L (46-116); ALT/SGPT 16 U/L (7.0-40); AST/SGOT 20 U/L (<34); BILIRUBIN,TOTAL 0.3 MG/DL (0.3-1.2); BLOOD UREA NITROGEN 18 MG/DL (9-23); CALCIUM LEVEL 8.5 MG/DL (8.3-10.6); CARBON DIOXIDE LEVEL 26 MMOL/L (20-31); CHLORIDE LEVEL 108 MMOL/L (98-107); CREATININE FOR GFR 0.92 MG/DL (0.55-1.30); GLOMERULAR FILTRATION RATE > 60.0 (>32); GLUCOSE, FASTING 160 MG/DL (74-106); POTASSIUM SERUM 4.2 MMOL/L (3.5-5.1); SODIUM LEVEL 143 MMOL/L (136-145); TOTAL PROTEIN 5.4 G/DL (5.7-8.2)
== END ==
LOC: M LAB 13:39
PROVIDERS: ATTEND Family Medicine
DX: J69.0 Pneumonitis due to inhalation of food and vomit (principal); M35.3 Polymyalgia rheumatica; I25.2 Old myocardial infarction

== ENCOUNTER → 2023-01-04 | Outpatient (CLI) | payer MEDICARE, MEDICAID | LOC: M ADAMS 07:59 | PROVIDERS: ATTEND Physician Assistant | DX: R05.3 Chronic cough (principal) ==

== ENCOUNTER → 2023-01-27 | Outpatient (REF) | payer MEDICARE, MEDICAID ==
[2023-01-27 12:28] LABS: BASO % 0.4 % (0.0-1.0); EOS # 0.2 10^3/uL (0.0-0.5); EOS % 2.4 % (0.0-3.0); HEMATOCRIT 35.9 % (36.0-47.0); HEMOGLOBIN 11.6 g/dl (12.0-15.5); LYMPH % 12.8 % (24.0-44.0); MEAN CORPUSCULAR HEMOGLOBIN 33.7 pg (27.0-33.0); MEAN CORPUSCULAR HGB CONC 32.3 g/dl (32.0-36.5); MEAN CORPUSCULAR VOLUME 104.4 fl (80.0-96.0); MONO # 0.7 10^3/uL (0.0-0.8); MONO % 8.8 % (2.0-8.0); NEUTROPHILS % 75.2 % (36.0-66.0); PLATELET COUNT, AUTOMATED 265 10^3/uL (150-450); RED BLOOD COUNT 3.44 10^6/uL (4.00-5.40)
[2023-01-27 12:53] LABS: ERYTHROCYTE SEDIMENTATION RATE 7 mm/hr (0-30)
[2023-01-27 12:57] LABS: ALBUMIN 3.1 G/DL (3.2-5.2); ALKALINE PHOSPHATASE 216 U/L (46-116); ALT/SGPT 12 U/L (7.0-40); AST/SGOT 9 U/L (<34); BILIRUBIN,TOTAL 0.3 MG/DL (0.3-1.2); BLOOD UREA NITROGEN 19 MG/DL (9-23); CALCIUM LEVEL 9.5 MG/DL (8.3-10.6); CARBON DIOXIDE LEVEL 28 MMOL/L (20-31); CHLORIDE LEVEL 107 MMOL/L (98-107); CREATININE FOR GFR 0.84 MG/DL (0.55-1.30); GLOMERULAR FILTRATION RATE > 60.0 (>32); GLUCOSE, FASTING 97 MG/DL (74-106); POTASSIUM SERUM 3.9 MMOL/L (3.5-5.1); SODIUM LEVEL 141 MMOL/L (136-145)
== END ==
LOC: M SFHCRHEU 10:00
PROVIDERS: ATTEND Internal Medicine Rheumatology
DX: M35.3 Polymyalgia rheumatica (principal); R79.82 Elevated C-reactive protein (CRP); M25.50 Pain in unspecified joint; H04.123 Dry eye syndrome of bilateral lacrimal glands; Z79.52 Long term (current) use of systemic steroids

== ENCOUNTER → 2023-02-16 | Outpatient (REF) | payer MEDICARE, MEDICAID ==
[~2023-02-16] MED LIST changes: -GABA-283 PO; +GABA-284 PO
[2023-02-16 11:29] LABS: BASO % 0.4 % (0.0-1.0); EOS # 0.1 10^3/uL (0.0-0.5); EOS % 1.8 % (0.0-3.0); HEMATOCRIT 36.3 % (36.0-47.0); LYMPH # 1.1 10^3/uL (1.5-5.0); LYMPH % 13.8 % (24.0-44.0); MEAN CORPUSCULAR HEMOGLOBIN 33.7 pg (27.0-33.0); MEAN CORPUSCULAR HGB CONC 33.1 g/dl (32.0-36.5); MONO # 0.8 10^3/uL (0.0-0.8); MONO % 9.6 % (2.0-8.0); NEUTROPHILS # 5.8 10^3/uL (1.5-8.5); NEUTROPHILS % 73.8 % (36.0-66.0); PLATELET COUNT, AUTOMATED 209 10^3/uL (150-450); RED BLOOD COUNT 3.56 10^6/uL (4.00-5.40); WHITE BLOOD COUNT 7.9 10^3/uL (4.0-10.0)
[2023-02-16 11:58] LABS: ERYTHROCYTE SEDIMENTATION RATE 5 mm/hr (0-30)
[2023-02-16 12:03] LABS: ALBUMIN 3.2 G/DL (3.2-5.2); ALKALINE PHOSPHATASE 188 U/L (46-116); ALT/SGPT 15 U/L (7.0-40); AST/SGOT 12 U/L (<34); BILIRUBIN,TOTAL 0.4 MG/DL (0.3-1.2); BLOOD UREA NITROGEN 17 MG/DL (9-23); CARBON DIOXIDE LEVEL 26 MMOL/L (20-31); CHLORIDE LEVEL 108 MMOL/L (98-107); CREATININE FOR GFR 0.91 MG/DL (0.55-1.30); GLOMERULAR FILTRATION RATE > 60.0 (>32); GLUCOSE, FASTING 105 MG/DL (74-106); SODIUM LEVEL 144 MMOL/L (136-145); TOTAL PROTEIN 5.9 G/DL (5.7-8.2)
== END ==
LOC: M SFHCRHEU 10:08
PROVIDERS: ATTEND Internal Medicine Rheumatology
DX: M35.3 Polymyalgia rheumatica (principal); R79.82 Elevated C-reactive protein (CRP); M25.50 Pain in unspecified joint; H04.123 Dry eye syndrome of bilateral lacrimal glands; Z79.52 Long term (current) use of systemic steroids

== ENCOUNTER → 2023-02-24 | Outpatient (REF) | payer MEDICARE, MEDICAID | LOC: M SFHCRHEU 11:15 | PROVIDERS: ATTEND Internal Medicine Rheumatology | DX: M35.3 Polymyalgia rheumatica (principal); R79.82 Elevated C-reactive protein (CRP); M25.50 Pain in unspecified joint; H04.123 Dry eye syndrome of bilateral lacrimal glands; Z79.52 Long term (current) use of systemic steroids ==

== ENCOUNTER 2023-03-04 17:30 | Emergency (ER) | payer MEDICARE, MEDICAID ==
[~2023-03-04] VITALS: Ht 165.1 cm; Wt 58.2 kg
[2023-03-04 17:40] VITALS: TEMP 96.6
[2023-03-04] MEDS ORDERED: ACETAMINOPHEN TAB 650MG DOSE (2X325MG) PO ONE (17:50)
[2023-03-04 20:14] VITALS: BP 121/67; O2SAT 98
== END 2023-03-04 20:16 | disposition home or self-care (01) ==
LOC: M ED 17:30
DX: S80.02XA Contusion of left knee, initial encounter (principal); W01.0XXA Fall on same level from slipping, tripping and stumbling without subsequent striking against object, initial encounter; K21.9 Gastro-esophageal reflux disease without esophagitis; G43.909 Migraine, unspecified, not intractable, without status migrainosus; K59.00 Constipation, unspecified; I25.2 Old myocardial infarction; Z86.79 Personal history of other diseases of the circulatory system; Y92.009 Unspecified place in unspecified non-institutional (private) residence as the place of occurrence of the external cause; Z79.891 Long term (current) use of opiate analgesic; Z79.52 Long term (current) use of systemic steroids; Z79.899 Other long term (current) drug therapy; Z88.2 Allergy status to sulfonamides; Z88.8 Allergy status to other drugs, medicaments and biological substances; Z96.652 Presence of left artificial knee joint

== ENCOUNTER → 2023-03-15 | Outpatient (CLI) | payer MEDICARE, MEDICAID | LOC: M WHC 09:22 | PROVIDERS: ATTEND Physician Assistant | DX: N63.42 Unspecified lump in left breast, subareolar (principal) | CPT/HCPCS: 77066; G0279 ==

== ENCOUNTER → 2023-03-21 | Outpatient (REF) | payer MEDICARE, MEDICAID ==
[2023-03-21 15:30] LABS: BASO % 0.3 % (0.0-1.0); EOS # 0.1 10^3/uL (0.0-0.5); EOS % 1.3 % (0.0-3.0); HEMATOCRIT 36.8 % (36.0-47.0); HEMOGLOBIN 11.3 g/dl (12.0-15.5); LYMPH # 0.8 10^3/uL (1.5-5.0); LYMPH % 11.4 % (24.0-44.0); MEAN CORPUSCULAR HEMOGLOBIN 32.2 pg (27.0-33.0); MEAN CORPUSCULAR HGB CONC 30.7 g/dl (32.0-36.5); MEAN CORPUSCULAR VOLUME 104.8 fl (80.0-96.0); MONO # 0.6 10^3/uL (0.0-0.8); MONO % 8.8 % (2.0-8.0); NEUTROPHILS # 5.5 10^3/uL (1.5-8.5); NEUTROPHILS % 77.8 % (36.0-66.0); PLATELET COUNT, AUTOMATED 244 10^3/uL (150-450); RED BLOOD COUNT 3.51 10^6/uL (4.00-5.40); WHITE BLOOD COUNT 7.1 10^3/uL (4.0-10.0)
[2023-03-21 15:44] LABS: ERYTHROCYTE SEDIMENTATION RATE 6 mm/hr (0-30)
[2023-03-21 16:04] LABS: C REACTIVE PROTEIN QUANTITATIV 0.4 MG/DL (<1.0)
[2023-03-21 16:05] LABS: FREE T4 1.27 NG/DL (0.89-1.76); THYROID STIMULATING HORMONE 0.972 uIU/ML (0.55-4.78)
[2023-03-21 16:08] LABS: ALBUMIN 3.2 G/DL (3.2-5.2); BILIRUBIN,TOTAL 0.3 MG/DL (0.3-1.2); CALCIUM LEVEL 9.1 MG/DL (8.3-10.6); CREATININE FOR GFR 0.96 MG/DL (0.55-1.30); GLOMERULAR FILTRATION RATE 58.8 (>32); POTASSIUM SERUM 3.9 MMOL/L (3.5-5.1); TOTAL PROTEIN 6.1 G/DL (5.7-8.2)
== END ==
LOC: M SFHCADAM 10:52
PROVIDERS: ATTEND Family Medicine
DX: R79.82 Elevated C-reactive protein (CRP) (principal); M35.3 Polymyalgia rheumatica; M25.50 Pain in unspecified joint; H04.123 Dry eye syndrome of bilateral lacrimal glands; Z79.52 Long term (current) use of systemic steroids; E03.9 Hypothyroidism, unspecified

== ENCOUNTER → 2023-05-02 | Outpatient (CLI) | payer MEDICARE, OTHER | LOC: M RAD 09:27 | PROVIDERS: ATTEND Orthopaedic Surgery | DX: Z96.652 Presence of left artificial knee joint (principal); S80.02XD Contusion of left knee, subsequent encounter | CPT/HCPCS: 78315; A9503 ==

== ENCOUNTER → 2023-05-05 | Outpatient (REF) | payer MEDICARE | PROVIDERS: ATTEND Internal Medicine Gastroenterology | DX: E66.1 Drug-induced obesity (principal); Z53.8 Procedure and treatment not carried out for other reasons ==

== ENCOUNTER → 2023-05-08 | Outpatient (REF) | payer MEDICARE, MEDICAID, OTHER ==
[2023-05-08 11:27] LABS: BASO % 0.2 % (0.0-1.0); EOS % 0.7 % (0.0-3.0); HEMATOCRIT 34.6 % (36.0-47.0); HEMOGLOBIN 11.3 g/dl (12.0-15.5); LYMPH # 0.7 10^3/uL (1.5-5.0); LYMPH % 13.2 % (24.0-44.0); MEAN CORPUSCULAR HEMOGLOBIN 34.6 pg (27.0-33.0); MEAN CORPUSCULAR HGB CONC 32.7 g/dl (32.0-36.5); MEAN CORPUSCULAR VOLUME 105.8 fl (80.0-96.0); MONO # 0.3 10^3/uL (0.0-0.8); MONO % 5.9 % (2.0-8.0); NEUTROPHILS # 4.5 10^3/uL (1.5-8.5); NEUTROPHILS % 79.6 % (36.0-66.0); PLATELET COUNT, AUTOMATED 148 10^3/uL (150-450); RED BLOOD COUNT 3.27 10^6/uL (4.00-5.40); WHITE BLOOD COUNT 5.6 10^3/uL (4.0-10.0)
[2023-05-08 11:54] LABS: ALKALINE PHOSPHATASE 184 U/L (46-116); ALT/SGPT 17 U/L (7.0-40); AST/SGOT 10 U/L (<34); BILIRUBIN,DIRECT < 0.1 MG/DL (<0.4); BILIRUBIN,TOTAL 0.2 MG/DL (0.3-1.2); FERRITIN 17.8 NG/ML (7.3-270.7); IRON (FE) 59 UG/DL (50-170); PERCENT SATURATION 21.3 % (13.2-45.0); TOTAL IRON BINDING CAPACITY 277 UG/DL (250-425); TOTAL PROTEIN 5.3 G/DL (5.7-8.2)
[2023-05-08 11:55] LABS: FOLATE 8.5 NG/ML (>5.4); VITAMIN B12 LEVEL 346 PG/ML (211-911)
== END ==
PROVIDERS: ATTEND Internal Medicine Gastroenterology
DX: R12 Heartburn (principal); Z79.899 Other long term (current) drug therapy

== ENCOUNTER → 2023-05-19 | Outpatient (REF) | payer MEDICARE, MEDICAID, OTHER ==
[2023-05-19 09:56] LABS: BASO % 0.4 % (0.0-1.0); EOS # 0.1 10^3/uL (0.0-0.5); EOS % 0.9 % (0.0-3.0); HEMATOCRIT 37.2 % (36.0-47.0); HEMOGLOBIN 12.1 g/dl (12.0-15.5); LYMPH # 0.8 10^3/uL (1.5-5.0); LYMPH % 13.9 % (24.0-44.0); MEAN CORPUSCULAR HEMOGLOBIN 35.1 pg (27.0-33.0); MEAN CORPUSCULAR HGB CONC 32.5 g/dl (32.0-36.5); MEAN CORPUSCULAR VOLUME 107.8 fl (80.0-96.0); MONO # 0.3 10^3/uL (0.0-0.8); MONO % 4.9 % (2.0-8.0); NEUTROPHILS # 4.5 10^3/uL (1.5-8.5); NEUTROPHILS % 79.4 % (36.0-66.0); PLATELET COUNT, AUTOMATED 191 10^3/uL (150-450); RED BLOOD COUNT 3.45 10^6/uL (4.00-5.40); WHITE BLOOD COUNT 5.7 10^3/uL (4.0-10.0)
[2023-05-19 10:23] LABS: ALBUMIN 3.1 G/DL (3.2-5.2); ALKALINE PHOSPHATASE 186 U/L (46-116); ALT/SGPT 24 U/L (7.0-40); AST/SGOT 17 U/L (<34); BILIRUBIN,TOTAL 0.2 MG/DL (0.3-1.2); BLOOD UREA NITROGEN 19 MG/DL (9-23); CALCIUM LEVEL 8.4 MG/DL (8.3-10.6); CARBON DIOXIDE LEVEL 24 MMOL/L (20-31); CHLORIDE LEVEL 107 MMOL/L (98-107); CREATININE FOR GFR 0.92 MG/DL (0.55-1.30); GLOMERULAR FILTRATION RATE > 60.0 (>32); GLUCOSE, FASTING 130 MG/DL (74-106); POTASSIUM SERUM 4.3 MMOL/L (3.5-5.1); SODIUM LEVEL 142 MMOL/L (136-145); TOTAL PROTEIN 5.6 G/DL (5.7-8.2)
[2023-05-19 10:28] LABS: ERYTHROCYTE SEDIMENTATION RATE 2 mm/hr (0-30)
== END ==
PROVIDERS: ATTEND Internal Medicine Rheumatology
DX: M35.3 Polymyalgia rheumatica (principal); R79.82 Elevated C-reactive protein (CRP); M25.50 Pain in unspecified joint; H04.123 Dry eye syndrome of bilateral lacrimal glands; Z79.52 Long term (current) use of systemic steroids

== ENCOUNTER → 2023-05-23 | Outpatient (REF) | payer MEDICARE, MEDICAID | LOC: M SFHCRHEU 11:07 | PROVIDERS: ATTEND Internal Medicine Rheumatology | DX: M35.3 Polymyalgia rheumatica (principal); R79.82 Elevated C-reactive protein (CRP); M25.50 Pain in unspecified joint; H04.123 Dry eye syndrome of bilateral lacrimal glands; Z79.52 Long term (current) use of systemic steroids ==

== ENCOUNTER → 2023-06-21 | Outpatient (REF) | payer MEDICARE, MEDICAID | PROVIDERS: ATTEND Internal Medicine Rheumatology | DX: M35.3 Polymyalgia rheumatica (principal); M25.50 Pain in unspecified joint; H04.123 Dry eye syndrome of bilateral lacrimal glands; Z79.52 Long term (current) use of systemic steroids; Z53.8 Procedure and treatment not carried out for other reasons ==

== ENCOUNTER → 2023-07-05 | Outpatient (REF) | payer MEDICARE, MEDICAID ==
[~2023-07-05] MED LIST changes: +ACET-897 PO; +ACET650T3 PO; +AMOX875T2 PO; +ASPE4PAD2 TOP; +BENA2CRE3 EXT; +DOCU100C16 PO; +DOXY100T PO; +MAG30ORA12 PO; +NASA1SPR NARES; +OYST500T92 PO; +PROBCAP14 PO; +SALI0.6530 NARES
== END ==
PROVIDERS: ATTEND Internal Medicine Rheumatology
DX: M35.3 Polymyalgia rheumatica (principal); R79.82 Elevated C-reactive protein (CRP); M25.50 Pain in unspecified joint; H04.123 Dry eye syndrome of bilateral lacrimal glands; Z79.52 Long term (current) use of systemic steroids; Z53.8 Procedure and treatment not carried out for other reasons

== ENCOUNTER 2023-07-23 17:25 | Emergency (ER) | payer MEDICARE, MEDICAID ==
[~2023-07-23] VITALS: Ht 152.4 cm; Wt 62.8 kg
[~2023-07-23 17:25] MED LIST changes: -ACET-897 PO; -ACET650T3 PO; -AMOX875T2 PO; -ASPE4PAD2 TOP; -BENA2CRE3 EXT; -DOCU100C16 PO; -DOXY100T PO; -MAG30ORA12 PO; -NASA1SPR NARES; -OYST500T92 PO; -PROBCAP14 PO; -SALI0.6530 NARES
[2023-07-23] MEDS ORDERED: MORPHINE 2 MG/ML 1ML VIAL IV PRN (17:55)
[2023-07-23 18:25] LABS: BASO % 0.1 % (0.0-1.0); EOS # 0.1 10^3/uL (0.0-0.5); HEMATOCRIT 39.6 % (36.0-47.0); LYMPH # 1.2 10^3/uL (1.5-5.0); LYMPH % 14.8 % (24.0-44.0); MEAN CORPUSCULAR HGB CONC 32.8 g/dl (32.0-36.5); MEAN CORPUSCULAR VOLUME 106.7 fl (80.0-96.0); MONO # 0.9 10^3/uL (0.0-0.8); MONO % 10.4 % (2.0-8.0); NEUTROPHILS % 73.2 % (36.0-66.0); PLATELET COUNT, AUTOMATED 189 10^3/uL (150-450); RED BLOOD COUNT 3.71 10^6/uL (4.00-5.40); WHITE BLOOD COUNT 8.2 10^3/uL (4.0-10.0)
[2023-07-23 18:35] LABS: ALBUMIN 3.4 G/DL (3.2-5.2); ALKALINE PHOSPHATASE 175 U/L (46-116); ALT/SGPT 26 U/L (7.0-40); AST/SGOT 20 U/L (<34); BILIRUBIN,DIRECT < 0.1 MG/DL (<0.4); BILIRUBIN,TOTAL 0.2 MG/DL (0.3-1.2); BLOOD UREA NITROGEN 23 MG/DL (9-23); CALCIUM LEVEL 9.4 MG/DL (8.3-10.6); CARBON DIOXIDE LEVEL 29 MMOL/L (20-31); CHLORIDE LEVEL 109 MMOL/L (98-107); CREATININE FOR GFR 0.97 MG/DL (0.55-1.30); GLOMERULAR FILTRATION RATE 58.1 (>32); GLUCOSE, FASTING 108 MG/DL (74-106); POTASSIUM SERUM 5.2 MMOL/L (3.5-5.1); SODIUM LEVEL 143 MMOL/L (136-145)
[2023-07-23 18:38] LABS: PROTHROMBIN TIME 12.9 SECONDS (12.5-14.5)
[2023-07-23 18:39] LABS: PARTIAL THROMBOPLASTIN TIME 26.9 SECONDS (24.8-34.2)
[2023-07-23 18:44] LABS: RSV AMPLIFICATION NEGATIVE (NEGATIVE)
[2023-07-23 22:15] VITALS: BP 147/68; TEMP 97.8; O2SAT 92
[2023-07-23 22:49] VITALS: O2SAT 96
== END 2023-07-23 23:12 | disposition home or self-care (01) ==
LOC: M ED 17:25 → EDBD 17:25 → M ED 23:12
DX: S70.02XA Contusion of left hip, initial encounter (principal); S70.12XA Contusion of left thigh, initial encounter; W19.XXXA Unspecified fall, initial encounter; I25.2 Old myocardial infarction; J45.909 Unspecified asthma, uncomplicated; Z88.2 Allergy status to sulfonamides; Z88.1 Allergy status to other antibiotic agents; Z88.8 Allergy status to other drugs, medicaments and biological substances; Z91.048 Other nonmedicinal substance allergy status; Z79.52 Long term (current) use of systemic steroids; Z79.891 Long term (current) use of opiate analgesic; Z79.899 Other long term (current) drug therapy; Y92.199 Unspecified place in other specified residential institution as the place of occurrence of the external cause; Y93.89 Activity, other specified; Y99.9 Unspecified external cause status; Z79.02 Long term (current) use of antithrombotics/antiplatelets

== ENCOUNTER 2023-08-03 17:41 | Inpatient (IN) | payer MEDICARE, MEDICAID ==
[~2023-08-03] VITALS: Ht 152.4 cm; Wt 61.0 kg
[2023-08-03 18:21] LABS: BASO % 0.4 % (0.0-1.0); EOS # 0.2 10^3/uL (0.0-0.5); EOS % 3.4 % (0.0-3.0); HEMATOCRIT 39.3 % (36.0-47.0); LYMPH # 1.1 10^3/uL (1.5-5.0); LYMPH % 21.2 % (24.0-44.0); MEAN CORPUSCULAR HEMOGLOBIN 35.5 pg (27.0-33.0); MEAN CORPUSCULAR HGB CONC 33.1 g/dl (32.0-36.5); MEAN CORPUSCULAR VOLUME 107.4 fl (80.0-96.0); MONO # 0.7 10^3/uL (0.0-0.8); MONO % 13.2 % (2.0-8.0); NEUTROPHILS # 3.3 10^3/uL (1.5-8.5); NEUTROPHILS % 61.4 % (36.0-66.0); PLATELET COUNT, AUTOMATED 183 10^3/uL (150-450); RED BLOOD COUNT 3.66 10^6/uL (4.00-5.40); WHITE BLOOD COUNT 5.4 10^3/uL (4.0-10.0)
[2023-08-03] MEDS: NITROGLYCERIN 0.4MG SUBL TABLET SL PRN ×3 (18:30→18:45)
[2023-08-03 18:35] LABS: INR 0.95; PROTHROMBIN TIME 12.4 SECONDS (12.5-14.5)
[2023-08-03 18:44] LABS: LIPASE 76 U/L (12-53)
[2023-08-03 18:45] VITALS: BP 111/68
[2023-08-03] MEDS ORDERED: PANTOPRAZOLE 40MG VIAL IV ONE (18:45)
[2023-08-03] MEDS ORDERED: MAALOX 30 ML SUSP *UDC PO ONE (18:45)
[2023-08-03 18:46] LABS: ALBUMIN 3.3 G/DL (3.2-5.2); ALKALINE PHOSPHATASE 203 U/L (46-116); ALT/SGPT 27 U/L (7.0-40); AST/SGOT 15 U/L (<34); BILIRUBIN,DIRECT < 0.1 MG/DL (<0.4); BILIRUBIN,TOTAL 0.2 MG/DL (0.3-1.2); BLOOD UREA NITROGEN 23 MG/DL (9-23); CARBON DIOXIDE LEVEL 30 MMOL/L (20-31); CHLORIDE LEVEL 105 MMOL/L (98-107); CK-MB VALUE MASS 1.5 NG/ML (<3.6); CPK CREATINE PHOSPHOKINASE 82 U/L (34-145); CREATININE FOR GFR 1.07 MG/DL (0.55-1.30); GLOMERULAR FILTRATION RATE 51.9 (>32); GLUCOSE, FASTING 101 MG/DL (74-106); MB/CK RELATIVE INDEX 1.82 (< OR =4); POTASSIUM SERUM 5.2 MMOL/L (3.5-5.1); SODIUM LEVEL 137 MMOL/L (136-145); TOTAL PROTEIN 5.8 G/DL (5.7-8.2)
[2023-08-03] MEDS ORDERED: SOD POLYSTYRENE SULFONATE SUSP 15GM 60ML UD PO ONE (18:55)
[2023-08-03] MEDS ORDERED: ISOVUE-370 76% 100ML VIAL As Ordered ONE (18:57)
[2023-08-03] MEDS ORDERED: DOXYCYCLINE HYCLATE 100MG TABLET PO ONE (19:50)
[2023-08-03] MEDS ORDERED: cefTRIAXone SOD 1 GM in D5W MINI-BAG PLUS 50 ML IV ONE (19:50)
[2023-08-03 20:38] LABS: CK-MB VALUE MASS 1.1 NG/ML (<3.6)
[2023-08-03 20:43] LABS: CPK CREATINE PHOSPHOKINASE 68 U/L (34-145); MB/CK RELATIVE INDEX 1.61 (< OR =4)
[2023-08-03 22:29] LABS: RSV AMPLIFICATION NEGATIVE (NEGATIVE)
[2023-08-03] MEDS ORDERED: ACET-897 PO (22:38)
[2023-08-03] MEDS ORDERED: OYST500T92 PO (22:38)
[2023-08-03] MEDS ORDERED: BENA2CRE3 EXT (22:38)
[2023-08-03] MEDS ORDERED: ACET650T3 PO (22:38)
[2023-08-03] MEDS ORDERED: ASPE4PAD2 TOP (22:38)
[2023-08-03] MEDS ORDERED: NASA1SPR NARES (22:38)
[2023-08-03] MEDS ORDERED: DOCU100C16 PO (22:38)
[2023-08-03] MEDS ORDERED: SALI0.6530 NARES (22:38)
[2023-08-03] MEDS ORDERED: MAG30ORA12 PO (22:38)
[2023-08-03] MEDS ORDERED: FAMO40TA3 PO (22:38)
[2023-08-03] MEDS ORDERED: HOME MED LIST COMPLETE! XX SCH (22:40)
[2023-08-04] MEDS ORDERED: HYDROMORPHONE HCL 0.5 MG/ 0.5 ML SYRINGE IV PRN (01:35)
[2023-08-04] MEDS ORDERED: ONDANSETRON 4MG 2ML VIAL IV PRN (01:35)
[2023-08-04] MEDS ORDERED: NS 1,000 ML IV SCH (01:35)
[2023-08-04] MEDS ORDERED: DOCUSATE SODIUM 100MG CAPSULE PO PRN (01:35)
[2023-08-04] MEDS: ALBUTEROL 90 MCG/ACT 8GM HFA INHALER INH SCH ×4 (02:00→19:15)
[2023-08-04 02:17] VITALS: BP 126/65; TEMP 97.7; O2SAT 90
[2023-08-04 03:41] LABS: PROCALCITONIN <0.04 ng/ml
[2023-08-04] MEDS: NORTRIPTYLINE 25 MG CAP PO SCH ×2 (05:42→21:40)
[2023-08-04] MEDS: LEVOTHYROXINE 112MCG TABLET (0.112MG) PO SCH (05:42)
[2023-08-04] MEDS: ACETAMINOPHEN TAB 650MG DOSE (2X325MG) PO PRN ×4 (05:43→22:55)
[2023-08-04 05:55] VITALS: BP 104/54; TEMP 97.3; O2SAT 92
[2023-08-04 07:41] LABS: LIPASE 31 U/L (12-53)
[2023-08-04 07:45] LABS: BLOOD UREA NITROGEN 19 MG/DL (9-23); CALCIUM LEVEL 7.9 MG/DL (8.3-10.6); CARBON DIOXIDE LEVEL 28 MMOL/L (20-31); CHLORIDE LEVEL 110 MMOL/L (98-107); CREATININE FOR GFR 0.86 MG/DL (0.55-1.30); GLOMERULAR FILTRATION RATE > 60.0 (>32); GLUCOSE, FASTING 106 MG/DL (74-106); POTASSIUM SERUM 4.1 MMOL/L (3.5-5.1); SODIUM LEVEL 142 MMOL/L (136-145)
[2023-08-04] MEDS: SUCRALFATE 1 GM TAB PO SCH ×4 (08:14→21:40)
[2023-08-04] MEDS: GABAPENTIN 300 MG CAP PO SCH ×3 (08:15→21:40)
[2023-08-04] MEDS: HEPARIN SOD (PORCINE) 5000UNITS/ML 1ML VIAL/SYRINGE SQ SCH ×2 (08:15→21:41)
[2023-08-04] MEDS: DOXYCYCLINE HYCLATE 100MG TABLET PO SCH ×2 (08:15→21:40)
[2023-08-04] MEDS ORDERED: CLOPIDOGREL 75 MG TAB PO SCH (09:00)
[2023-08-04] MEDS: predniSONE 1 MG TAB PO SCH (09:48)
[2023-08-04] MEDS: PHENYTOIN ER 100 MG CAP PO SCH ×2 (12:18→21:40)
[2023-08-04 14:00] VITALS: BP 134/65; TEMP 97.2; O2SAT 100
[2023-08-04] MEDS: AUGMENTIN 875 MG TAB PO SCH ×2 (15:00→21:40)
[2023-08-04 19:42] VITALS: BP 135/75; TEMP 97.5; O2SAT 98
[2023-08-04] MEDS: MONTELUKAST 10 MG TAB PO SCH (21:40)
[2023-08-04] MEDS: FAMOTIDINE 20 MG TAB PO SCH (21:40)
[2023-08-04] MEDS: ATORVASTATIN 20 MG TAB PO SCH (21:40)
[2023-08-04] MEDS ORDERED: cefTRIAXone SOD 1 GM in D5W MINI-BAG PLUS 50 ML IV SCH (22:00)
[2023-08-04 22:54] VITALS: BP 116/62
[2023-08-05] MEDS: ALBUTEROL 90 MCG/ACT 8GM HFA INHALER INH SCH ×4 (01:25→20:19)
[2023-08-05] MEDS: LEVOTHYROXINE 112MCG TABLET (0.112MG) PO SCH (05:53)
[2023-08-05 06:17] VITALS: BP 106/53; TEMP 97.3; O2SAT 100
[2023-08-05 06:49] LABS: HEMATOCRIT 35.8 % (36.0-47.0); HEMOGLOBIN 11.8 g/dl (12.0-15.5); MEAN CORPUSCULAR HEMOGLOBIN 35.2 pg (27.0-33.0); MEAN CORPUSCULAR VOLUME 106.9 fl (80.0-96.0); PLATELET COUNT, AUTOMATED 171 10^3/uL (150-450); RED BLOOD COUNT 3.35 10^6/uL (4.00-5.40); WHITE BLOOD COUNT 4.6 10^3/uL (4.0-10.0)
[2023-08-05 07:11] LABS: BLOOD UREA NITROGEN 20 MG/DL (9-23); CALCIUM LEVEL 8.3 MG/DL (8.3-10.6); CARBON DIOXIDE LEVEL 27 MMOL/L (20-31); CHLORIDE LEVEL 109 MMOL/L (98-107); CREATININE FOR GFR 0.91 MG/DL (0.55-1.30); GLOMERULAR FILTRATION RATE > 60.0 (>32); GLUCOSE, FASTING 93 MG/DL (74-106); POTASSIUM SERUM 4.3 MMOL/L (3.5-5.1); SODIUM LEVEL 140 MMOL/L (136-145)
[2023-08-05] MEDS: SUCRALFATE 1 GM TAB PO SCH ×4 (08:16→19:54)
[2023-08-05] MEDS: AUGMENTIN 875 MG TAB PO SCH ×2 (08:16→19:55)
[2023-08-05] MEDS: predniSONE 1 MG TAB PO SCH (08:16)
[2023-08-05] MEDS: DOXYCYCLINE HYCLATE 100MG TABLET PO SCH ×2 (08:16→19:54)
[2023-08-05] MEDS: HEPARIN SOD (PORCINE) 5000UNITS/ML 1ML VIAL/SYRINGE SQ SCH ×2 (08:17→19:56)
[2023-08-05] MEDS: GABAPENTIN 300 MG CAP PO SCH ×3 (08:17→19:54)
[2023-08-05] MEDS: PHENYTOIN ER 100 MG CAP PO SCH ×2 (12:04→19:54)
[2023-08-05] MEDS: MIRABEGRON 50 MG PO SCH (12:04)
[2023-08-05 14:00] VITALS: BP 122/58; TEMP 97.5; O2SAT 90
[2023-08-05] MEDS: ACETAMINOPHEN TAB 650MG DOSE (2X325MG) PO PRN ×2 (16:00→19:56)
[2023-08-05] MEDS: MONTELUKAST 10 MG TAB PO SCH (19:54)
[2023-08-05] MEDS: NORTRIPTYLINE 25 MG CAP PO SCH (19:54)
[2023-08-05] MEDS: ATORVASTATIN 20 MG TAB PO SCH (19:55)
[2023-08-05] MEDS: FAMOTIDINE 20 MG TAB PO SCH (19:55)
[2023-08-05 20:36] VITALS: BP 115/54; TEMP 97.2; O2SAT 92
[2023-08-06] MEDS: ALBUTEROL 90 MCG/ACT 8GM HFA INHALER INH SCH ×4 (02:00→19:08)
[2023-08-06 04:55] VITALS: BP 122/63; TEMP 97.3; O2SAT 98
[2023-08-06] MEDS: LEVOTHYROXINE 112MCG TABLET (0.112MG) PO SCH (05:41)
[2023-08-06 05:58] LABS: HEMATOCRIT 36.3 % (36.0-47.0); HEMOGLOBIN 11.9 g/dl (12.0-15.5); MEAN CORPUSCULAR HEMOGLOBIN 35.3 pg (27.0-33.0); MEAN CORPUSCULAR HGB CONC 32.8 g/dl (32.0-36.5); MEAN CORPUSCULAR VOLUME 107.7 fl (80.0-96.0); PLATELET COUNT, AUTOMATED 193 10^3/uL (150-450); RED BLOOD COUNT 3.37 10^6/uL (4.00-5.40); WHITE BLOOD COUNT 4.7 10^3/uL (4.0-10.0)
[2023-08-06 06:21] LABS: BLOOD UREA NITROGEN 22 MG/DL (9-23); CALCIUM LEVEL 8.6 MG/DL (8.3-10.6); CARBON DIOXIDE LEVEL 27 MMOL/L (20-31); CHLORIDE LEVEL 109 MMOL/L (98-107); CREATININE FOR GFR 0.91 MG/DL (0.55-1.30); GLOMERULAR FILTRATION RATE > 60.0 (>32); GLUCOSE, FASTING 88 MG/DL (74-106); POTASSIUM SERUM 4.3 MMOL/L (3.5-5.1); SODIUM LEVEL 142 MMOL/L (136-145)
[2023-08-06] MEDS: HEPARIN SOD (PORCINE) 5000UNITS/ML 1ML VIAL/SYRINGE SQ SCH ×2 (09:54→20:45)
[2023-08-06] MEDS: AUGMENTIN 875 MG TAB PO SCH ×2 (09:55→20:44)
[2023-08-06] MEDS: GABAPENTIN 300 MG CAP PO SCH ×3 (09:55→20:44)
[2023-08-06] MEDS: predniSONE 1 MG TAB PO SCH (09:55)
[2023-08-06] MEDS: DOXYCYCLINE HYCLATE 100MG TABLET PO SCH ×2 (09:56→20:44)
[2023-08-06] MEDS: SUCRALFATE 1 GM TAB PO SCH ×4 (10:29→20:44)
[2023-08-06] MEDS: MIRABEGRON 50 MG PO SCH (13:09)
[2023-08-06] MEDS: PHENYTOIN ER 100 MG CAP PO SCH ×2 (13:09→20:44)
[2023-08-06 14:00] VITALS: BP 112/60; TEMP 97.5; O2SAT 94
[2023-08-06] MEDS: ACETAMINOPHEN TAB 650MG DOSE (2X325MG) PO PRN (15:26)
[2023-08-06] MEDS ORDERED: IBUPROFEN 800 MG TAB PO ONE (17:00)
[2023-08-06] MEDS: MONTELUKAST 10 MG TAB PO SCH (20:44)
[2023-08-06] MEDS: NORTRIPTYLINE 25 MG CAP PO SCH (20:44)
[2023-08-06] MEDS: ATORVASTATIN 20 MG TAB PO SCH (20:44)
[2023-08-06] MEDS: FAMOTIDINE 20 MG TAB PO SCH (20:44)
[2023-08-07] MEDS: ALBUTEROL 90 MCG/ACT 8GM HFA INHALER INH SCH ×2 (01:16→07:15)
[2023-08-07] MEDS: LEVOTHYROXINE 112MCG TABLET (0.112MG) PO SCH (05:29)
[2023-08-07 05:59] LABS: HEMATOCRIT 35.6 % (36.0-47.0); HEMOGLOBIN 11.8 g/dl (12.0-15.5); MEAN CORPUSCULAR HEMOGLOBIN 35.9 pg (27.0-33.0); MEAN CORPUSCULAR HGB CONC 33.1 g/dl (32.0-36.5); MEAN CORPUSCULAR VOLUME 108.2 fl (80.0-96.0); PLATELET COUNT, AUTOMATED 187 10^3/uL (150-450); RED BLOOD COUNT 3.29 10^6/uL (4.00-5.40); WHITE BLOOD COUNT 4.4 10^3/uL (4.0-10.0)
[2023-08-07 06:00] VITALS: BP_SYST 133; BP_SYST 136; BP_DIAS 70; BP_DIAS 71; TEMP 97.5; TEMP 97.7; O2SAT 93; O2SAT 97
[2023-08-07 06:21] LABS: BLOOD UREA NITROGEN 21 MG/DL (9-23); CALCIUM LEVEL 8.7 MG/DL (8.3-10.6); CARBON DIOXIDE LEVEL 25 MMOL/L (20-31); CHLORIDE LEVEL 110 MMOL/L (98-107); GLOMERULAR FILTRATION RATE > 60.0 (>32); GLUCOSE, FASTING 91 MG/DL (74-106); POTASSIUM SERUM 4.5 MMOL/L (3.5-5.1); SODIUM LEVEL 141 MMOL/L (136-145)
[2023-08-07] MEDS: GABAPENTIN 300 MG CAP PO SCH (08:13)
[2023-08-07] MEDS: DOXYCYCLINE HYCLATE 100MG TABLET PO SCH (08:13)
[2023-08-07] MEDS: AUGMENTIN 875 MG TAB PO SCH (08:13)
[2023-08-07] MEDS: SUCRALFATE 1 GM TAB PO SCH (08:13)
[2023-08-07] MEDS: predniSONE 1 MG TAB PO SCH (08:14)
[2023-08-07] MEDS: HEPARIN SOD (PORCINE) 5000UNITS/ML 1ML VIAL/SYRINGE SQ SCH (08:14)
[2023-08-07] MEDS ORDERED: PROBCAP14 PO (10:48)
[2023-08-07] MEDS ORDERED: AMOX875T2 PO (10:48)
[2023-08-07] MEDS ORDERED: DOXY100T PO (10:48)
[2023-08-07] MEDS ORDERED: GABAPENTIN 400MG CAP PO SCH (16:00)
[2023-08-08 15:12] LABS: BODY FLUID CULTURE Not indicated. (.); LEGIONELLA ANTIGEN URINE Negative (Negative); ORGANISM ID Not indicated. (.); SPECIMEN SOURCE Urine (.); URINE STREP PNEUMONIAE ANTIGEN Negative (Negative)
== END 2023-08-07 11:23 | disposition home or self-care (01) | DRG 195 ==
LOC: M ED 17:41 → M ED INP 23:41 → M MSPAV 23:41
PROVIDERS: ADMIT Internal Medicine; ATTEND Internal Medicine Nephrology
DX: J18.9 Pneumonia, unspecified organism (principal); R07.89 Other chest pain; M35.3 Polymyalgia rheumatica; I25.10 Atherosclerotic heart disease of native coronary artery without angina pectoris; J45.909 Unspecified asthma, uncomplicated; E78.00 Pure hypercholesterolemia, unspecified; G62.9 Polyneuropathy, unspecified; E03.9 Hypothyroidism, unspecified; N32.81 Overactive bladder; K21.9 Gastro-esophageal reflux disease without esophagitis; G43.909 Migraine, unspecified, not intractable, without status migrainosus; F03.90 Unspecified dementia, unspecified severity, without behavioral disturbance, psychotic disturbance, mood disturbance, and anxiety; M19.90 Unspecified osteoarthritis, unspecified site; M85.88 Other specified disorders of bone density and structure, other site; E11.9 Type 2 diabetes mellitus without complications; F32.A Depression, unspecified; F41.9 Anxiety disorder, unspecified; Z90.79 Acquired absence of other genital organ(s); Z96.652 Presence of left artificial knee joint; Z87.891 Personal history of nicotine dependence; Z79.01 Long term (current) use of anticoagulants; Z79.890 Hormone replacement therapy; Z79.52 Long term (current) use of systemic steroids; Z79.899 Other long term (current) drug therapy; Z88.0 Allergy status to penicillin; Z88.2 Allergy status to sulfonamides; Z88.1 Allergy status to other antibiotic agents; Z91.048 Other nonmedicinal substance allergy status; Z88.8 Allergy status to other drugs, medicaments and biological substances; Z20.822 Contact with and (suspected) exposure to COVID-19

== ENCOUNTER → 2023-09-08 | Outpatient (REF) | payer MEDICARE, MEDICAID ==
[~2023-09-08] MED LIST changes: +ACET-897 PO; +ACET650T3 PO; +AMOX875T2 PO; +ASPE4PAD2 TOP; +BENA2CRE3 EXT; +DOCU100C16 PO; +DOXY100T PO; +MAG30ORA12 PO; +NASA1SPR NARES; +OYST500T92 PO; +PROBCAP14 PO; +SODI88SP NARES
[2023-09-08 10:38] LABS: BASO % 0.8 % (0.0-1.0); EOS # 0.5 10^3/uL (0.0-0.5); EOS % 8.5 % (0.0-3.0); HEMOGLOBIN 11.6 g/dl (12.0-15.5); LYMPH # 0.7 10^3/uL (1.5-5.0); LYMPH % 13.6 % (24.0-44.0); MEAN CORPUSCULAR HEMOGLOBIN 35.2 pg (27.0-33.0); MEAN CORPUSCULAR HGB CONC 33.1 g/dl (32.0-36.5); MEAN CORPUSCULAR VOLUME 106.1 fl (80.0-96.0); MONO # 0.6 10^3/uL (0.0-0.8); MONO % 11.3 % (2.0-8.0); NEUTROPHILS # 3.5 10^3/uL (1.5-8.5); NEUTROPHILS % 65.2 % (36.0-66.0); PLATELET COUNT, AUTOMATED 192 10^3/uL (150-450); WHITE BLOOD COUNT 5.3 10^3/uL (4.0-10.0)
[2023-09-08 10:53] LABS: ALKALINE PHOSPHATASE 195 U/L (46-116); ALT/SGPT 15 U/L (7.0-40); AST/SGOT 13 U/L (<34); BILIRUBIN,TOTAL 0.2 MG/DL (0.3-1.2); BLOOD UREA NITROGEN 19 MG/DL (9-23); CALCIUM LEVEL 8.6 MG/DL (8.3-10.6); CARBON DIOXIDE LEVEL 27 MMOL/L (20-31); CHLORIDE LEVEL 107 MMOL/L (98-107); CREATININE FOR GFR 0.82 MG/DL (0.55-1.30); ERYTHROCYTE SEDIMENTATION RATE 5 mm/hr (0-30); GLOMERULAR FILTRATION RATE > 60.0 (>32); GLUCOSE, FASTING 106 MG/DL (74-106); POTASSIUM SERUM 3.8 MMOL/L (3.5-5.1); SODIUM LEVEL 139 MMOL/L (136-145); TOTAL PROTEIN 5.3 G/DL (5.7-8.2)
== END ==
PROVIDERS: ATTEND Internal Medicine Rheumatology
DX: M35.3 Polymyalgia rheumatica (principal); Z79.52 Long term (current) use of systemic steroids; M25.50 Pain in unspecified joint; H04.123 Dry eye syndrome of bilateral lacrimal glands

== ENCOUNTER → 2023-09-29 | Outpatient (CLI) | payer MEDICARE, MEDICAID | LOC: M PLALAB 09:52 | PROVIDERS: ATTEND Family Medicine | DX: J18.9 Pneumonia, unspecified organism (principal) ==

== ENCOUNTER → 2023-11-10 | Outpatient (REF) | payer MEDICARE, MEDICAID ==
[2023-11-10 12:51] LABS: BASO % 0.4 % (0.0-1.0); EOS # 0.1 10^3/uL (0.0-0.5); EOS % 1.3 % (0.0-3.0); HEMATOCRIT 38.4 % (36.0-47.0); HEMOGLOBIN 12.9 g/dl (12.0-15.5); LYMPH # 0.9 10^3/uL (1.5-5.0); MEAN CORPUSCULAR HEMOGLOBIN 34.5 pg (27.0-33.0); MEAN CORPUSCULAR HGB CONC 33.6 g/dl (32.0-36.5); MEAN CORPUSCULAR VOLUME 102.7 fl (80.0-96.0); MONO # 0.6 10^3/uL (0.0-0.8); MONO % 9.5 % (2.0-8.0); NEUTROPHILS % 74.5 % (36.0-66.0); PLATELET COUNT, AUTOMATED 203 10^3/uL (150-450); RED BLOOD COUNT 3.74 10^6/uL (4.00-5.40); WHITE BLOOD COUNT 6.7 10^3/uL (4.0-10.0)
[2023-11-10 13:15] LABS: ERYTHROCYTE SEDIMENTATION RATE 6 mm/hr (0-30)
== END ==
LOC: M SFHCRHEU 10:05
PROVIDERS: ATTEND Internal Medicine Rheumatology
DX: M35.3 Polymyalgia rheumatica (principal); R79.82 Elevated C-reactive protein (CRP); M25.50 Pain in unspecified joint; H04.123 Dry eye syndrome of bilateral lacrimal glands; Z79.52 Long term (current) use of systemic steroids

== ENCOUNTER 2023-11-13 22:22 | Emergency (ER) | payer MEDICARE, MEDICAID ==
[~2023-11-13] VITALS: Ht 165.1 cm; Wt 62.0 kg
[2023-11-13 22:29] VITALS: TEMP 97.7
[2023-11-13 22:30] VITALS: BP 130/78
[2023-11-13 23:45] VITALS: O2SAT 94
[2023-11-14] MEDS: ACETAMINOPHEN TAB 650MG DOSE (2X325MG) PO ONE (00:21)
== END 2023-11-14 01:40 | disposition home or self-care (01) ==
LOC: M ED 22:22
DX: S70.02XA Contusion of left hip, initial encounter (principal); Y92.019 Unspecified place in single-family (private) house as the place of occurrence of the external cause; Y93.9 Activity, unspecified; Y99.9 Unspecified external cause status; W19.XXXA Unspecified fall, initial encounter; Z88.2 Allergy status to sulfonamides; Z88.1 Allergy status to other antibiotic agents; Z88.8 Allergy status to other drugs, medicaments and biological substances; Z79.1 Long term (current) use of non-steroidal anti-inflammatories (NSAID); Z79.51 Long term (current) use of inhaled steroids; Z79.2 Long term (current) use of antibiotics; Z79.810 Long term (current) use of selective estrogen receptor modulators (SERMs); Z79.52 Long term (current) use of systemic steroids; Z79.899 Other long term (current) drug therapy

== ENCOUNTER → 2023-12-08 | Outpatient (REF) | payer MEDICARE, MEDICAID ==
[2023-12-08 10:02] LABS: BASO % 0.4 % (0.0-1.0); EOS # 0.1 10^3/uL (0.0-0.5); EOS % 2.8 % (0.0-3.0); HEMATOCRIT 38.6 % (36.0-47.0); HEMOGLOBIN 13.1 g/dl (12.0-15.5); LYMPH # 0.7 10^3/uL (1.5-5.0); LYMPH % 15.9 % (24.0-44.0); MEAN CORPUSCULAR HEMOGLOBIN 35.4 pg (27.0-33.0); MEAN CORPUSCULAR HGB CONC 33.9 g/dl (32.0-36.5); MEAN CORPUSCULAR VOLUME 104.3 fl (80.0-96.0); MONO # 0.3 10^3/uL (0.0-0.8); MONO % 7.3 % (2.0-8.0); NEUTROPHILS # 3.4 10^3/uL (1.5-8.5); NEUTROPHILS % 73.2 % (36.0-66.0); PLATELET COUNT, AUTOMATED 181 10^3/uL (150-450); WHITE BLOOD COUNT 4.6 10^3/uL (4.0-10.0)
[2023-12-08 10:12] LABS: ERYTHROCYTE SEDIMENTATION RATE 3 mm/hr (0-30)
[2023-12-08 10:38] LABS: ALBUMIN 3.1 G/DL (3.2-5.2); ALKALINE PHOSPHATASE 169 U/L (46-116); ALT/SGPT 26 U/L (7.0-40); AST/SGOT 19 U/L (<34); BILIRUBIN,TOTAL 0.3 MG/DL (0.3-1.2); BLOOD UREA NITROGEN 13 MG/DL (9-23); CALCIUM LEVEL 8.7 MG/DL (8.3-10.6); CARBON DIOXIDE LEVEL 24 MMOL/L (20-31); CHLORIDE LEVEL 109 MMOL/L (98-107); CREATININE FOR GFR 0.86 MG/DL (0.55-1.30); GLOMERULAR FILTRATION RATE > 60.0 (>32); GLUCOSE, FASTING 129 MG/DL (74-106); POTASSIUM SERUM 4.1 MMOL/L (3.5-5.1); SODIUM LEVEL 141 MMOL/L (136-145); TOTAL PROTEIN 5.7 G/DL (5.7-8.2)
== END ==
PROVIDERS: ATTEND Internal Medicine Rheumatology
DX: M35.3 Polymyalgia rheumatica (principal); R79.82 Elevated C-reactive protein (CRP); M25.50 Pain in unspecified joint; H04.123 Dry eye syndrome of bilateral lacrimal glands; Z79.52 Long term (current) use of systemic steroids

== ENCOUNTER → 2023-12-26 | Outpatient (CLI) | payer MEDICARE, MEDICAID | LOC: M RAD 15:00 | PROVIDERS: ATTEND Physician Assistant Medical | DX: R60.0 Localized edema (principal) ==

== ENCOUNTER → 2024-01-12 | Outpatient (REF) | payer MEDICARE, MEDICAID ==
[2024-01-12 09:36] LABS: BASO % 0.4 % (0.0-1.0); EOS # 0.2 10^3/uL (0.0-0.5); EOS % 2.4 % (0.0-3.0); HEMATOCRIT 42.6 % (36.0-47.0); HEMOGLOBIN 14.2 g/dl (12.0-15.5); LYMPH % 11.9 % (24.0-44.0); MEAN CORPUSCULAR HEMOGLOBIN 35.1 pg (27.0-33.0); MEAN CORPUSCULAR HGB CONC 33.3 g/dl (32.0-36.5); MEAN CORPUSCULAR VOLUME 105.4 fl (80.0-96.0); MONO # 0.5 10^3/uL (0.0-0.8); MONO % 6.2 % (2.0-8.0); NEUTROPHILS # 6.5 10^3/uL (1.5-8.5); NEUTROPHILS % 78.4 % (36.0-66.0); PLATELET COUNT, AUTOMATED 193 10^3/uL (150-450); RED BLOOD COUNT 4.04 10^6/uL (4.00-5.40); WHITE BLOOD COUNT 8.3 10^3/uL (4.0-10.0)
[2024-01-12 09:46] LABS: ERYTHROCYTE SEDIMENTATION RATE 3 mm/hr (0-30)
[2024-01-12 10:06] LABS: C REACTIVE PROTEIN QUANTITATIV < 0.40 MG/DL (<1.0)
[2024-01-12 10:07] LABS: ALBUMIN 3.4 G/DL (3.2-5.2); ALKALINE PHOSPHATASE 200 U/L (46-116); ALT/SGPT 24 U/L (7.0-40); AST/SGOT 14 U/L (<34); BILIRUBIN,TOTAL 0.4 MG/DL (0.3-1.2); BLOOD UREA NITROGEN 20 MG/DL (9-23); CALCIUM LEVEL 9.5 MG/DL (8.3-10.6); CARBON DIOXIDE LEVEL 26 MMOL/L (20-31); CHLORIDE LEVEL 104 MMOL/L (98-107); CREATININE FOR GFR 0.86 MG/DL (0.55-1.30); GLOMERULAR FILTRATION RATE > 60.0 (>32); GLUCOSE, FASTING 117 MG/DL (74-106); POTASSIUM SERUM 3.8 MMOL/L (3.5-5.1); SODIUM LEVEL 138 MMOL/L (136-145); TOTAL PROTEIN 6.1 G/DL (5.7-8.2)
== END ==
PROVIDERS: ATTEND Internal Medicine Rheumatology
DX: M35.3 Polymyalgia rheumatica (principal); R79.82 Elevated C-reactive protein (CRP); M25.50 Pain in unspecified joint; H04.123 Dry eye syndrome of bilateral lacrimal glands; Z79.52 Long term (current) use of systemic steroids

== ENCOUNTER → 2024-01-29 | Outpatient (REF) | payer MEDICARE, MEDICAID | PROVIDERS: ATTEND Internal Medicine Rheumatology | DX: M35.3 Polymyalgia rheumatica (principal) ==

== ENCOUNTER → 2024-02-09 | Outpatient (REF) | payer MEDICARE, MEDICAID ==
[2024-02-09 12:09] LABS: BASO # 0.1 10^3/uL (0.0-0.2); BASO % 0.7 % (0.0-1.0); EOS # 0.2 10^3/uL (0.0-0.5); EOS % 3.3 % (0.0-3.0); HEMATOCRIT 40.2 % (36.0-47.0); HEMOGLOBIN 13.6 g/dl (12.0-15.5); LYMPH # 1.2 10^3/uL (1.5-5.0); LYMPH % 17.6 % (24.0-44.0); MEAN CORPUSCULAR HEMOGLOBIN 35.9 pg (27.0-33.0); MEAN CORPUSCULAR HGB CONC 33.8 g/dl (32.0-36.5); MEAN CORPUSCULAR VOLUME 106.1 fl (80.0-96.0); MONO # 0.9 10^3/uL (0.0-0.8); MONO % 12.2 % (2.0-8.0); NEUTROPHILS # 4.6 10^3/uL (1.5-8.5); NEUTROPHILS % 65.6 % (36.0-66.0); PLATELET COUNT, AUTOMATED 206 10^3/uL (150-450); RED BLOOD COUNT 3.79 10^6/uL (4.00-5.40)
[2024-02-09 12:11] LABS: ALBUMIN 3.4 G/DL (3.2-5.2); ALKALINE PHOSPHATASE 177 U/L (46-116); ALT/SGPT 22 U/L (7.0-40); AST/SGOT 21 U/L (<34); BILIRUBIN,DIRECT < 0.1 MG/DL (<0.4); BILIRUBIN,TOTAL 0.3 MG/DL (0.3-1.2); FERRITIN 41.6 NG/ML (7.3-270.7); IRON (FE) 78 UG/DL (50-170); PERCENT SATURATION 27.5 % (13.2-45.0); TOTAL IRON BINDING CAPACITY 284 UG/DL (250-425); TOTAL PROTEIN 6.1 G/DL (5.7-8.2); VITAMIN B12 LEVEL 405 PG/ML (211-911)
[2024-02-09 12:16] LABS: FOLATE 17.5 NG/ML (>5.4)
== END ==
PROVIDERS: ATTEND Internal Medicine Gastroenterology
DX: R12 Heartburn (principal); D50.0 Iron deficiency anemia secondary to blood loss (chronic); Z79.899 Other long term (current) drug therapy

== ENCOUNTER → 2024-03-07 | Outpatient (REF) | payer MEDICARE, MEDICAID ==
[~2024-03-07] MED LIST changes: +MAG30ORA PO; -MAG30ORA12 PO
== END ==
LOC: M SFHCADAM 16:55
PROVIDERS: ATTEND Physician Assistant Medical
DX: R05.1 Acute cough (principal)

== ENCOUNTER → 2024-03-07 | Outpatient (CLI) | payer MEDICARE, MEDICAID | LOC: M ADAMS 11:31 | PROVIDERS: ATTEND Physician Assistant Medical | DX: R05.1 Acute cough (principal) ==

== ENCOUNTER → 2024-05-08 | Outpatient (REF) | payer MEDICARE, MEDICAID ==
[2024-05-08 19:09] LABS: HEMATOCRIT 40.6 % (36.0-47.0); HEMOGLOBIN 13.3 g/dl (12.0-15.5); MEAN CORPUSCULAR HEMOGLOBIN 35.6 pg (27.0-33.0); MEAN CORPUSCULAR HGB CONC 32.8 g/dl (32.0-36.5); MEAN CORPUSCULAR VOLUME 108.6 fl (80.0-96.0); PLATELET COUNT, AUTOMATED 196 10^3/uL (150-450); RED BLOOD COUNT 3.74 10^6/uL (4.00-5.40); WHITE BLOOD COUNT 8.6 10^3/uL (4.0-10.0)
[2024-05-08 19:31] LABS: HEMOGLOBIN A1c 5.4 % (4.0-6.0)
[2024-05-08 19:35] LABS: THYROID STIMULATING HORMONE 2.626 uIU/ML (0.55-4.78)
[2024-05-08 19:36] LABS: FERRITIN 40.5 NG/ML (7.3-270.7); TOTAL IRON BINDING CAPACITY 269 UG/DL (250-425)
[2024-05-08 19:37] LABS: ALBUMIN 3.5 G/DL (3.2-5.2); ALKALINE PHOSPHATASE 176 U/L (46-116); ALT/SGPT 21 U/L (7.0-40); AST/SGOT 17 U/L (<34); BILIRUBIN,TOTAL 0.3 MG/DL (0.3-1.2); BLOOD UREA NITROGEN 18 MG/DL (9-23); CALCIUM LEVEL 9.3 MG/DL (8.3-10.6); CARBON DIOXIDE LEVEL 25 MMOL/L (20-31); CHLORIDE LEVEL 108 MMOL/L (98-107); CHOLESTEROL LEVEL 111 MG/DL (<200); CHOLESTEROL RISK RATIO 2.59 (<5); CREATININE FOR GFR 0.93 MG/DL (0.55-1.30); GLOMERULAR FILTRATION RATE > 60.0 (>32); GLUCOSE, FASTING 86 MG/DL (74-106); HDL CHOLESTEROL 42.8 MG/DL (>40); IRON (FE) 60 UG/DL (50-170); LDL CHOLESTEROL 37.8 MG/DL (<100); NON-HDL-C 68.2 MG/DL; PERCENT SATURATION 22.3 % (13.2-45.0); POTASSIUM SERUM 4.5 MMOL/L (3.5-5.1); SODIUM LEVEL 140 MMOL/L (136-145); TOTAL PROTEIN 6.3 G/DL (5.7-8.2); TRIGLYCERIDES LEVEL 152 MG/DL (<150)
[2024-05-08 19:38] LABS: FREE T4 1.25 NG/DL (0.89-1.76)
== END ==
LOC: M SFHCADAM 11:21
PROVIDERS: ATTEND Family Medicine
DX: M13.812 Other specified arthritis, left shoulder (principal); D50.0 Iron deficiency anemia secondary to blood loss (chronic); E03.9 Hypothyroidism, unspecified; E78.2 Mixed hyperlipidemia; Z79.52 Long term (current) use of systemic steroids; M35.3 Polymyalgia rheumatica; Z79.899 Other long term (current) drug therapy

== ENCOUNTER → 2024-06-05 | Outpatient (CLI) | payer MEDICARE, MEDICAID ==
[~2024-06-05] MED LIST changes: +PROHANCE 279.3MG/ML 15ML VIAL ONE
== END ==
LOC: M PLAIMG 11:37
PROVIDERS: ATTEND Pain Medicine Interventional Pain Medicine
DX: M96.1 Postlaminectomy syndrome, not elsewhere classified (principal)
CPT/HCPCS: 72156; A9576

== ENCOUNTER → 2024-06-07 | Outpatient (REF) | payer MEDICARE, MEDICAID ==
[~2024-06-07] MED LIST changes: -PROHANCE 279.3MG/ML 15ML VIAL ONE
[2024-06-07 17:34] LABS: BASO % 0.3 % (0.0-1.0); EOS # 0.1 10^3/uL (0.0-0.5); EOS % 0.8 % (0.0-3.0); HEMATOCRIT 39.7 % (36.0-47.0); HEMOGLOBIN 13.3 g/dl (12.0-15.5); LYMPH # 0.9 10^3/uL (1.5-5.0); LYMPH % 9.6 % (24.0-44.0); MEAN CORPUSCULAR HEMOGLOBIN 35.5 pg (27.0-33.0); MEAN CORPUSCULAR HGB CONC 33.5 g/dl (32.0-36.5); MEAN CORPUSCULAR VOLUME 105.9 fl (80.0-96.0); MONO # 0.7 10^3/uL (0.0-0.8); MONO % 7.6 % (2.0-8.0); NEUTROPHILS # 7.3 10^3/uL (1.5-8.5); NEUTROPHILS % 81.1 % (36.0-66.0); PLATELET COUNT, AUTOMATED 215 10^3/uL (150-450); RED BLOOD COUNT 3.75 10^6/uL (4.00-5.40)
[2024-06-07 17:38] LABS: ALBUMIN 3.5 G/DL (3.2-5.2); BILIRUBIN,TOTAL 0.3 MG/DL (0.3-1.2); CALCIUM LEVEL 9.7 MG/DL (8.3-10.6); CREATININE FOR GFR 1.17 MG/DL (0.55-1.30); GLOMERULAR FILTRATION RATE 46.7 (>32); POTASSIUM SERUM 4.7 MMOL/L (3.5-5.1); TOTAL PROTEIN 6.3 G/DL (5.7-8.2)
== END ==
LOC: M SFHCADAM 11:10
PROVIDERS: ATTEND Physician Assistant
DX: R10.13 Epigastric pain (principal)

== ENCOUNTER → 2024-06-12 | Outpatient (REF) | payer MEDICARE, MEDICAID ==
[2024-06-12 11:52] LABS: BLOOD UREA NITROGEN 20 MG/DL (9-23); CREATININE FOR GFR 0.85 MG/DL (0.55-1.30); GLOMERULAR FILTRATION RATE > 60.0 (>32)
== END ==
PROVIDERS: ATTEND Pain Medicine Interventional Pain Medicine
DX: M96.1 Postlaminectomy syndrome, not elsewhere classified (principal)

== ENCOUNTER → 2024-06-18 | Outpatient (CLI) | payer MEDICARE, MEDICAID ==
[2024-06-18 11:50] LABS: HEMATOCRIT 38.2 % (36.0-47.0); HEMOGLOBIN 13.1 g/dl (12.0-15.5); MEAN CORPUSCULAR HEMOGLOBIN 35.2 pg (27.0-33.0); MEAN CORPUSCULAR HGB CONC 34.3 g/dl (32.0-36.5); MEAN CORPUSCULAR VOLUME 102.7 fl (80.0-96.0); PLATELET COUNT, AUTOMATED 208 10^3/uL (150-450); RED BLOOD COUNT 3.72 10^6/uL (4.00-5.40)
== END ==
LOC: M LAB 11:23
PROVIDERS: ATTEND Physician Assistant Medical
DX: J06.9 Acute upper respiratory infection, unspecified (principal)

== ENCOUNTER → 2024-08-06 | Outpatient (REF) | payer MEDICARE, MEDICAID ==
[~2024-08-06] MED LIST changes: -BAYE325T12 PO; +BAYE325T2 PO
[2024-08-06 17:21] LABS: HEMATOCRIT 40.9 % (36.0-47.0); HEMOGLOBIN 13.2 g/dl (12.0-15.5); MEAN CORPUSCULAR HEMOGLOBIN 34.1 pg (27.0-33.0); MEAN CORPUSCULAR HGB CONC 32.3 g/dl (32.0-36.5); MEAN CORPUSCULAR VOLUME 105.7 fl (80.0-96.0); PLATELET COUNT, AUTOMATED 201 10^3/uL (150-450); RED BLOOD COUNT 3.87 10^6/uL (4.00-5.40); WHITE BLOOD COUNT 7.3 10^3/uL (4.0-10.0)
[2024-08-06 17:50] LABS: C REACTIVE PROTEIN QUANTITATIV < 0.50 MG/DL (<1.0); FERRITIN 44.9 NG/ML (7.3-270.7)
[2024-08-06 17:51] LABS: THYROID STIMULATING HORMONE 1.168 uIU/ML (0.55-4.78)
[2024-08-06 17:52] LABS: ALBUMIN 3.4 G/DL (3.2-5.2); ALKALINE PHOSPHATASE 183 U/L (35-104); ALT/SGPT 18 U/L (7.0-40); AST/SGOT 20 U/L (<34); BILIRUBIN,TOTAL 0.2 MG/DL (0.3-1.2); BLOOD UREA NITROGEN 15 MG/DL (9-23); CALCIUM LEVEL 8.8 MG/DL (8.3-10.6); CARBON DIOXIDE LEVEL 26 MMOL/L (20-31); CHLORIDE LEVEL 109 MMOL/L (98-107); CHOLESTEROL LEVEL 117 MG/DL (<200); CHOLESTEROL RISK RATIO 2.72 (<5); CREATININE FOR GFR 0.85 MG/DL (0.55-1.30); GLOMERULAR FILTRATION RATE > 60.0 (>32); GLUCOSE, FASTING 99 MG/DL (74-106); LDL CHOLESTEROL 34.4 MG/DL (<100); POTASSIUM SERUM 4.4 MMOL/L (3.5-5.1); SODIUM LEVEL 143 MMOL/L (136-145); TRIGLYCERIDES LEVEL 198 MG/DL (<150)
== END ==
LOC: M SFHCADAM 15:05
PROVIDERS: ATTEND Family Medicine
DX: E78.2 Mixed hyperlipidemia (principal); E03.9 Hypothyroidism, unspecified; I25.2 Old myocardial infarction; D50.0 Iron deficiency anemia secondary to blood loss (chronic); M35.3 Polymyalgia rheumatica

== ENCOUNTER → 2024-08-09 | Outpatient (CLI) | payer MEDICARE, MEDICAID | LOC: M LAB 17:16 | PROVIDERS: ATTEND Optometrist | DX: H35.3131 Nonexudative age-related macular degeneration, bilateral, early dry stage (principal); H16.223 Keratoconjunctivitis sicca, not specified as Sjogren's, bilateral; H43.812 Vitreous degeneration, left eye; H53.2 Diplopia ==

== ENCOUNTER → 2024-09-09 | Outpatient (REF) | payer MEDICARE, MEDICAID ==
[2024-09-14 18:03] LABS: STRIATED MUSCLE AB SCREEN NEGATIVE (NEGATIVE)
[2024-09-14 21:38] LABS: ACHR BINDING ANTIBODY < 0.30 nmol/L (<=0.30); ACHR BLOCKING AB < 15 (<15); ACHR MODULATING ANTIBODY < 1 (<32)
== END ==
PROVIDERS: ATTEND Psychiatry & Neurology Neurology
DX: I69.391 Dysphagia following cerebral infarction (principal)

== ENCOUNTER → 2024-09-13 | Outpatient (CLI) | payer MEDICARE, MEDICAID | LOC: M RAD 10:12 | PROVIDERS: ATTEND Physician Assistant | DX: M25.552 Pain in left hip (principal); M65.252 Calcific tendinitis, left thigh ==

== ENCOUNTER 2024-10-23 14:48 | Emergency (ER) | payer MEDICARE, MEDICAID ==
[~2024-10-23] VITALS: Ht 152.4 cm; Wt 62.5 kg
[2024-10-23 16:32] LABS: BLOOD UREA NITROGEN 20 MG/DL (9-23); CALCIUM LEVEL 8.8 MG/DL (8.3-10.6); CARBON DIOXIDE LEVEL 25 MMOL/L (20-31); CHLORIDE LEVEL 107 MMOL/L (98-107); CREATININE FOR GFR 0.81 MG/DL (0.55-1.30); GLOMERULAR FILTRATION RATE > 60.0 (>32); GLUCOSE, FASTING 100 MG/DL (74-106); POTASSIUM SERUM 4.5 MMOL/L (3.5-5.1); SODIUM LEVEL 139 MMOL/L (136-145)
[2024-10-23 16:45] VITALS: BP 115/62; TEMP 98.6; O2SAT 96
== END 2024-10-23 17:18 | disposition home or self-care (01) ==
LOC: M ED 14:48 → EDBD 14:48 → M ED 17:18
DX: R22.42 Localized swelling, mass and lump, left lower limb (principal); I25.2 Old myocardial infarction; K58.9 Irritable bowel syndrome, unspecified; G25.81 Restless legs syndrome; J45.909 Unspecified asthma, uncomplicated; E03.9 Hypothyroidism, unspecified; Z88.2 Allergy status to sulfonamides; Z88.8 Allergy status to other drugs, medicaments and biological substances; Z91.048 Other nonmedicinal substance allergy status; Z79.52 Long term (current) use of systemic steroids; Z79.02 Long term (current) use of antithrombotics/antiplatelets; Z79.899 Other long term (current) drug therapy; Z79.1 Long term (current) use of non-steroidal anti-inflammatories (NSAID)
CPT/HCPCS: 36415; 80048; 93971; 99284; G0463

== ENCOUNTER → 2024-11-01 | Outpatient (REF) | payer MEDICARE, MEDICAID ==
[2024-11-01 14:53] LABS: CALCIUM LEVEL 8.4 MG/DL (8.3-10.6); CREATININE FOR GFR 0.89 MG/DL (0.55-1.30); GLOMERULAR FILTRATION RATE 63.1 (>32); MAGNESIUM LEVEL 1.5 MG/DL (1.8-2.4)
== END ==
LOC: M SFHCADAM 10:52
PROVIDERS: ATTEND Physician Assistant
DX: M79.605 Pain in left leg (principal)

== ENCOUNTER → 2024-11-01 | Outpatient (CLI) | payer MEDICARE, MEDICAID | LOC: M ADAMS 11:22 | PROVIDERS: ATTEND Physician Assistant | DX: R05.3 Chronic cough (principal) ==

== ENCOUNTER → 2024-11-27 | Outpatient (CLI) | payer MEDICARE, MEDICAID ==
[~2024-11-27] MED LIST changes: +PRED-1142 PO; -PRED1TABL PO
== END ==
LOC: M RAD 16:28
PROVIDERS: ATTEND Physician Assistant
DX: M79.605 Pain in left leg (principal); Z96.651 Presence of right artificial knee joint; M85.852 Other specified disorders of bone density and structure, left thigh

== ENCOUNTER → 2024-12-03 | Outpatient (REF) | payer MEDICARE, MEDICAID | LOC: M SFHCADAM 16:50 | PROVIDERS: ATTEND Family Medicine | DX: R30.0 Dysuria (principal) ==

== ENCOUNTER → 2025-02-07 | Outpatient (CLI) | payer MEDICARE, MEDICAID | LOC: M SOG 06:59 | PROVIDERS: ATTEND Neuromusculoskeletal Medicine, Sports Medicine | DX: M25.552 Pain in left hip (principal); M16.11 Unilateral primary osteoarthritis, right hip; M76.892 Other specified enthesopathies of left lower limb, excluding foot ==

== ENCOUNTER → 2025-03-14 | Outpatient (CLI) | payer MEDICARE, MEDICAID | LOC: M SOG 06:53 | PROVIDERS: ATTEND Neuromusculoskeletal Medicine, Sports Medicine | DX: M25.522 Pain in left elbow (principal); R93.6 Abnormal findings on diagnostic imaging of limbs ==

== ENCOUNTER → 2025-04-04 | Outpatient (REF) | payer MEDICARE, MEDICAID ==
[2025-04-04 11:18] LABS: BASO # 0.0 10^3/uL (0.0-0.2); BASO % 0.6 % (0.0-1.0); EOS # 0.2 10^3/uL (0.0-0.5); EOS % 2.9 % (0.0-3.0); LYMPH # 1.2 10^3/uL (1.5-5.0); LYMPH % 23.5 % (24.0-44.0); MONO # 0.5 10^3/uL (0.0-0.8); MONO % 9.4 % (2.0-8.0); NEUTROPHILS # 3.3 10^3/uL (1.5-8.5); NEUTROPHILS % 63.4 % (36.0-66.0); PLATELET COUNT, AUTOMATED 190 10^3/uL (150-450)
[2025-04-04 11:45] LABS: C REACTIVE PROTEIN QUANTITATIV 0.58 MG/DL (<1.0)
[2025-04-04 11:46] LABS: ALT/SGPT 25.0 U/L (7.0-40); AST/SGOT 19.0 U/L (<34); CALCIUM LEVEL 8.7 MG/DL (8.3-10.6); CARBON DIOXIDE LEVEL 22.0 MMOL/L (20-31); CHLORIDE LEVEL 111.0 MMOL/L (98-107); CREATININE FOR GFR 0.87 MG/DL (0.55-1.30); GLOMERULAR FILTRATION RATE 64.4 (>32); POTASSIUM SERUM 4.0 MMOL/L (3.5-5.1); SODIUM LEVEL 144.0 MMOL/L (136-145)
== END ==
PROVIDERS: ATTEND Internal Medicine Rheumatology
DX: M35.3 Polymyalgia rheumatica (principal)

== ENCOUNTER → 2025-05-16 | Outpatient (REF) | payer MEDICARE, MEDICAID ==
[2025-05-16 17:26] LABS: PLATELET COUNT, AUTOMATED 206 10^3/uL (150-450)
[2025-05-16 17:29] LABS: C REACTIVE PROTEIN QUANTITATIV 0.62 MG/DL (<1.0)
[2025-05-16 17:31] LABS: CALCIUM LEVEL 8.8 MG/DL (8.3-10.6); CARBON DIOXIDE LEVEL 23.0 MMOL/L (20-31); CHLORIDE LEVEL 105.0 MMOL/L (98-107); CREATININE FOR GFR 0.94 MG/DL (0.55-1.30); GLOMERULAR FILTRATION RATE 58.7 (>32); POTASSIUM SERUM 4.8 MMOL/L (3.5-5.1); SODIUM LEVEL 139.0 MMOL/L (136-145)
== END ==
LOC: M SFHCADAM 14:01
PROVIDERS: ATTEND Physician Assistant
DX: M25.472 Effusion, left ankle (principal)

== ENCOUNTER → 2025-05-16 | Outpatient (CLI) | payer MEDICARE, MEDICAID | LOC: M ADAMS 14:24 | PROVIDERS: ATTEND Physician Assistant | DX: M25.472 Effusion, left ankle (principal) ==

== ENCOUNTER → 2025-05-29 | Outpatient (CLI) | payer MEDICARE, MEDICAID | LOC: M PLAIMG 12:16 | PROVIDERS: ATTEND Neuromusculoskeletal Medicine, Sports Medicine | DX: S56.212A Strain of other flexor muscle, fascia and tendon at forearm level, left arm, initial encounter (principal); M19.022 Primary osteoarthritis, left elbow; Y93.9 Activity, unspecified; Y92.9 Unspecified place or not applicable ==

== ENCOUNTER → 2025-05-29 | Outpatient (CLI) | payer MEDICARE, MEDICAID ==
[~2025-05-29] MED LIST changes: +PROHANCE 279.3MG/ML 15ML VIAL ONE
== END ==
LOC: M PLAIMG 12:13
PROVIDERS: ATTEND Pain Medicine Interventional Pain Medicine
DX: M96.1 Postlaminectomy syndrome, not elsewhere classified (principal); M50.30 Other cervical disc degeneration, unspecified cervical region; M48.02 Spinal stenosis, cervical region
CPT/HCPCS: 72156; 73221; A9576

== ENCOUNTER 2025-06-21 13:43 | Emergency (ER) | payer MEDICARE, MEDICAID ==
[~2025-06-21] VITALS: Ht 152.4 cm; Wt 56.8 kg
[~2025-06-21 13:43] MED LIST changes: -PROHANCE 279.3MG/ML 15ML VIAL ONE; -SODI88SP NARES; +SODI88SP7 NARES
[2025-06-21 13:57] VITALS: TEMP 97.9
[2025-06-21 15:45] VITALS: BP 110/53; O2SAT 94
== END 2025-06-21 16:18 | disposition home or self-care (01) ==
LOC: EDBD 13:43 → M ED 13:43
DX: S93.402A Sprain of unspecified ligament of left ankle, initial encounter (principal); M19.072 Primary osteoarthritis, left ankle and foot; M50.30 Other cervical disc degeneration, unspecified cervical region; W01.0XXA Fall on same level from slipping, tripping and stumbling without subsequent striking against object, initial encounter; R93.0 Abnormal findings on diagnostic imaging of skull and head, not elsewhere classified; M77.32 Calcaneal spur, left foot; I25.2 Old myocardial infarction; J45.909 Unspecified asthma, uncomplicated; G43.909 Migraine, unspecified, not intractable, without status migrainosus; G25.81 Restless legs syndrome; Z86.79 Personal history of other diseases of the circulatory system; Z86.73 Personal history of transient ischemic attack (TIA), and cerebral infarction without residual deficits; Z88.2 Allergy status to sulfonamides; Z88.1 Allergy status to other antibiotic agents; Z88.8 Allergy status to other drugs, medicaments and biological substances; Z91.09 Other allergy status, other than to drugs and biological substances; Z79.1 Long term (current) use of non-steroidal anti-inflammatories (NSAID); Z79.52 Long term (current) use of systemic steroids; Z79.02 Long term (current) use of antithrombotics/antiplatelets; Z79.899 Other long term (current) drug therapy; Y92.009 Unspecified place in unspecified non-institutional (private) residence as the place of occurrence of the external cause; Y93.89 Activity, other specified; Y99.9 Unspecified external cause status

== ENCOUNTER 2025-07-03 10:12 | Inpatient (IN) | payer MEDICARE, MEDICAID ==
[~2025-07-03] VITALS: Ht 152.4 cm; Wt 61.3 kg
[~2025-07-03 10:12] MED LIST changes: -ALBU2.5V10 INH; -AZEL1SPR3 NARES; -DICL20GE TOP; -FLUT15.820; -OMEP40CA5 PO; -PRES10CA2 PO; -SLOW1TAB3 PO
[2025-07-03] MEDS: ACETAMINOPHEN 500 MG TAB PO ONE (10:54)
[2025-07-03 11:32] LABS: VENOUS BASE EXCESS -1.9 (-2.0-2.0); VENOUS HCO3 23.3 MMOL/L (23.0-27.0); VENOUS O2 SATURATION 94.3 % (60.0-80.0); VENOUS PARTIAL PRESSURE CO2 41.1 mmHg (38.0-50.0); VENOUS PARTIAL PRESSURE O2 73.3 mmHg (30.0-50.0); VENOUS PH 7.371 UNITS (7.330-7.430); VENOUS STANDARD HCO3 22.8 MMOL/L; VENOUS TOTAL CO2 24.5 MMOL/L (24.0-28.0)
[2025-07-03 11:34] LABS: BASO # 0.0 10^3/uL (0.0-0.2); BASO % 0.1 % (0.0-1.0); EOS # 0.0 10^3/uL (0.0-0.5); EOS % 0.3 % (0.0-3.0); LYMPH # 0.7 10^3/uL (1.5-5.0); LYMPH % 4.8 % (24.0-44.0); MONO # 1.2 10^3/uL (0.0-0.8); MONO % 7.7 % (2.0-8.0); NEUTROPHILS # 13.4 10^3/uL (1.5-8.5); NEUTROPHILS % 86.5 % (36.0-66.0); PLATELET COUNT, AUTOMATED 198 10^3/uL (150-450)
[2025-07-03 12:01] LABS: ALT/SGPT 30.0 U/L (7.0-40); AST/SGOT 28.0 U/L (<34); CALCIUM LEVEL 8.6 MG/DL (8.3-10.6); CARBON DIOXIDE LEVEL 25.0 MMOL/L (20-31); CHLORIDE LEVEL 104.0 MMOL/L (98-107); CREATININE FOR GFR 0.86 MG/DL (0.55-1.30); GLOMERULAR FILTRATION RATE 65.3 (>32); POTASSIUM SERUM 3.7 MMOL/L (3.5-5.1); SODIUM LEVEL 139.0 MMOL/L (136-145)
[2025-07-03] MEDS ORDERED: CLOPIDOGREL 75 MG TAB PO SCH (12:30)
[2025-07-03 14:23] LABS: PROTEIN, URINE MANUAL REFLEX TRACE mg/dL (NEGATIVE); SP GRAVITY,URINE MANUAL REFLEX 1.010 (1.002-1.035)
[2025-07-03 14:24] LABS: KETONE, URINE MANUAL REFLEX NEGATIVE (NEGATIVE); UROBILINOGEN, UA MANUAL REFLEX NORMAL (NORMAL)
[2025-07-03 14:30] LABS: NITRITE, URINE MANUAL RFX NEGATIVE (NEGATIVE)
[2025-07-03 14:31] LABS: MICROSCOPIC EXAM RFX UNSPUN
[2025-07-03 14:33] LABS: RBC, URINE MAN REFLEX NONE SEEN /hpf (0-3); WBC, URINE MAN RFX 0-1 /hpf (0-3)
[2025-07-03 14:34] LABS: SQUAMOUS EPITHELIAL URINE RFX NONE SEEN /hpf (SMALL AMT)
[2025-07-03 15:52] LABS: HYALINE CAST, URINE RFX NONE SEEN /lpf (0-1)
[2025-07-03] MEDS: cefTRIAXone SOD 1 GM in DEXTROSE 5% (D5W) ADV/MINI-BAG 50 ML IV ONE (17:11)
[2025-07-03] MEDS: DOXYCYCLINE HYCLATE 100 MG TABLET PO ONE (17:12)
[2025-07-03] MEDS ORDERED: ALBU2.5V10 INH (17:22)
[2025-07-03] MEDS ORDERED: OMEP40CA5 PO (17:22)
[2025-07-03] MEDS ORDERED: GUAI100L6 PO (17:22)
[2025-07-03] MEDS ORDERED: FLUT15.820 (17:27)
[2025-07-03] MEDS ORDERED: DICL20GE TOP (17:27)
[2025-07-03] MEDS ORDERED: AZEL1SPR3 NARES (17:27)
[2025-07-03] MEDS ORDERED: PRES10CA2 PO (17:27)
[2025-07-03] MEDS ORDERED: SLOW1TAB3 PO (17:27)
[2025-07-03] MEDS ORDERED: HOME MED LIST COMPLETE! XX SCH (17:30)
[2025-07-03] MEDS ORDERED: MAALOX 30 ML SUSP *UDC PO PRN (17:35)
[2025-07-03] MEDS ORDERED: MOM 30 ML SUSPENSION UDC PO PRN (17:35)
[2025-07-03] MEDS ORDERED: MIRALAX *UNIT DOSE* 17 GM PACKET PO PRN (17:35)
[2025-07-03] MEDS ORDERED: guaiFENesin ER TABLET 600 MG TAB PO PRN (17:50)
[2025-07-03 19:27] LABS: CHOLESTEROL LEVEL 99.0 MG/DL (<200); CHOLESTEROL RISK RATIO 1.96 (<5); LDL CHOLESTEROL 28.6 MG/DL (<100); NON-HDL-C 48.6 MG/DL; TRIGLYCERIDES LEVEL 100.0 MG/DL (<150)
[2025-07-03 19:51] LABS: CK-MB VALUE MASS 1.4 NG/ML (<3.6)
[2025-07-03 19:58] LABS: ESTIMATED AVERAGE GLUCOSE 103.0 MG/DL (60-110)
[2025-07-03 19:59] LABS: CPK CREATINE PHOSPHOKINASE 111.0 U/L (34-145); MB/CK RELATIVE INDEX 1.26 (< OR =4)
[2025-07-03 20:09] LABS: INR 1.07
[2025-07-03] MEDS: ALBUTEROL SULFATE 2.5 MG/0.5 ML INH CONCENTRATE NEB SOLN NEB SCH (20:43)
[2025-07-03] MEDS ORDERED: ATORVASTATIN 20 MG TAB PO SCH (21:00)
[2025-07-03] MEDS: ATORVASTATIN 20 MG TAB PO SCH (21:11)
[2025-07-03] MEDS: GABAPENTIN 400 MG CAP PO SCH (21:11)
[2025-07-03] MEDS: SENNA 8.6 MG TAB PO SCH (21:11)
[2025-07-03] MEDS: DOCUSATE SODIUM 100 MG CAPSULE PO SCH (21:11)
[2025-07-03] MEDS: NS (Normal Saline) 0.9% 1,000 ML IV SCH (21:12)
[2025-07-03] MEDS: SUCRALFATE 1 GM TAB PO SCH (21:12)
[2025-07-03] MEDS: FAMOTIDINE 20 MG TAB PO SCH (21:12)
[2025-07-03] MEDS: MONTELUKAST 10 MG TAB PO SCH (21:12)
[2025-07-03] MEDS: NORTRIPTYLINE 25 MG CAP PO SCH (21:46)
[2025-07-03] MEDS: PHENYTOIN ER 100 MG CAP PO SCH (21:46)
[2025-07-03] MEDS: ASPIRIN 325 MG TAB PO ONE (21:52)
[2025-07-03 23:55] VITALS: BP 124/62; TEMP 99.4; O2SAT 90
[2025-07-04] VITALS (27 sets, daily range): BP systolic 111–142; BP diastolic 55–73; TEMP 97.7–101.3; O2SAT 90–99
[2025-07-04] MEDS: ACETAMINOPHEN 325 MG TAB PO PRN (02:56)
[2025-07-04] MEDS: LEVOTHYROXINE 112 MCG TABLET (0.112 MG) PO SCH (05:14)
[2025-07-04] MEDS: DOXYCYCLINE HYCLATE 100 MG in DEXTROSE 5% (D5W) MINI-BAG PLU 100 ML IV SCH (05:15)
[2025-07-04 06:16] LABS: PLATELET COUNT, AUTOMATED 164 10^3/uL (150-450)
[2025-07-04 06:44] LABS: CALCIUM LEVEL 7.7 MG/DL (8.3-10.6); CARBON DIOXIDE LEVEL 25.0 MMOL/L (20-31); CHLORIDE LEVEL 104.0 MMOL/L (98-107); CREATININE FOR GFR 0.82 MG/DL (0.55-1.30); GLOMERULAR FILTRATION RATE 69.2 (>32); MAGNESIUM LEVEL 1.5 MG/DL (1.8-2.4); PHOSPHORUS LEVEL 3.0 MG/DL (2.4-5.1); POTASSIUM SERUM 3.3 MMOL/L (3.5-5.1); SODIUM LEVEL 137.0 MMOL/L (136-145)
[2025-07-04] MEDS ORDERED: POTASSIUM CHLORIDE 10MEQ SR TABLET PO ONE (07:15)
[2025-07-04] MEDS ORDERED: MAG SULF 1GM/100ML (MAG RUN) 1 GM in IV 1 EA IV SCH (07:15)
[2025-07-04] MEDS: CLOPIDOGREL 75 MG TAB PO SCH (08:14)
[2025-07-04] MEDS: MAGNESIUM OXIDE 400 MG TAB PO SCH (09:44)
[2025-07-04] MEDS: ASPIRIN 81 MG ENTERIC TABLET PO SCH (09:44)
[2025-07-04] MEDS: POTASSIUM CHLORIDE 10MEQ SR TABLET PO ONE (09:45)
[2025-07-04] MEDS: cefTRIAXone SOD 2 GM in DEXTROSE 5% (D5W) ADV/MINI-BAG 50 ML IV SCH (09:45)
[2025-07-04] MEDS: MAG SULF 1GM/100ML (MAG RUN) 1 GM in IV 1 EA IV SCH (10:33)
[2025-07-05] VITALS (28 sets, daily range): BP systolic 98–134; BP diastolic 48–66; TEMP 97.6–101.5; O2SAT 89–99
[2025-07-05 05:04] LABS: PLATELET COUNT, AUTOMATED 168 10^3/uL (150-450)
[2025-07-05 05:31] LABS: CALCIUM LEVEL 7.3 MG/DL (8.3-10.6); CARBON DIOXIDE LEVEL 23.0 MMOL/L (20-31); CHLORIDE LEVEL 105.0 MMOL/L (98-107); CREATININE FOR GFR 0.81 MG/DL (0.55-1.30); GLOMERULAR FILTRATION RATE 70.2 (>32); MAGNESIUM LEVEL 2.1 MG/DL (1.8-2.4); PHOSPHORUS LEVEL 2.4 MG/DL (2.4-5.1); POTASSIUM SERUM 4.3 MMOL/L (3.5-5.1); SODIUM LEVEL 138.0 MMOL/L (136-145)
[2025-07-05 10:36] LABS: C REACTIVE PROTEIN QUANTITATIV 26.41 MG/DL (<1.0)
[2025-07-05] MEDS: ENOXAPARIN 40 MG/0.4 ML SYRINGE (J1650 PER 10MG) SC SCH (13:07)
[2025-07-05 16:07] LABS: C REACTIVE PROTEIN QUANTITATIV 16.66 MG/DL (<1.0)
[2025-07-05 16:07] LABS: C REACTIVE PROTEIN QUANTITATIV 22.04 MG/DL (<1.0)
[2025-07-06] VITALS (31 sets, daily range): BP systolic 99–147; BP diastolic 53–67; TEMP 98–100.5; O2SAT 90–98
[2025-07-06 04:51] LABS: PLATELET COUNT, AUTOMATED 197 10^3/uL (150-450)
[2025-07-06 05:14] LABS: CALCIUM LEVEL 8.0 MG/DL (8.3-10.6); CARBON DIOXIDE LEVEL 25.0 MMOL/L (20-31); CHLORIDE LEVEL 105.0 MMOL/L (98-107); CREATININE FOR GFR 0.85 MG/DL (0.55-1.30); GLOMERULAR FILTRATION RATE 66.3 (>32); MAGNESIUM LEVEL 2.0 MG/DL (1.8-2.4); PHOSPHORUS LEVEL 2.2 MG/DL (2.4-5.1); POTASSIUM SERUM 4.0 MMOL/L (3.5-5.1); SODIUM LEVEL 138.0 MMOL/L (136-145)
[2025-07-06 05:32] LABS: C REACTIVE PROTEIN QUANTITATIV 29.76 MG/DL (<1.0)
[2025-07-06] MEDS: NEUTRA-PHOS 1.5 GM PACKET PO SCH (11:19)
[2025-07-07] VITALS (29 sets, daily range): BP systolic 98–130; BP diastolic 55–67; TEMP 97.4–98.7; O2SAT 84–100
[2025-07-07 08:01] LABS: CALCIUM LEVEL 8.4 MG/DL (8.3-10.6); CARBON DIOXIDE LEVEL 26.0 MMOL/L (20-31); CHLORIDE LEVEL 105.0 MMOL/L (98-107); CREATININE FOR GFR 0.85 MG/DL (0.55-1.30); GLOMERULAR FILTRATION RATE 66.3 (>32); MAGNESIUM LEVEL 1.9 MG/DL (1.8-2.4); PHOSPHORUS LEVEL 3.3 MG/DL (2.4-5.1); POTASSIUM SERUM 3.9 MMOL/L (3.5-5.1); SODIUM LEVEL 140.0 MMOL/L (136-145)
[2025-07-07 08:23] LABS: BASO # 0.0 10^3/uL (0.0-0.2); BASO % 0.4 % (0.0-1.0); EOS # 0.4 10^3/uL (0.0-0.5); EOS % 3.8 % (0.0-3.0); LYMPH # 0.9 10^3/uL (1.5-5.0); LYMPH % 9.7 % (24.0-44.0); MONO # 0.9 10^3/uL (0.0-0.8); MONO % 9.7 % (2.0-8.0); NEUTROPHILS # 7.2 10^3/uL (1.5-8.5); NEUTROPHILS % 75.6 % (36.0-66.0); PLATELET COUNT, AUTOMATED 223 10^3/uL (150-450)
[2025-07-07 08:37] LABS: C REACTIVE PROTEIN QUANTITATIV 25.23 MG/DL (<1.0)
[2025-07-07] MEDS ORDERED: ATOR1TAB21 PO (16:00)
[2025-07-07] MEDS ORDERED: ASPI81TAEC PO (16:00)
[2025-07-07] MEDS ORDERED: DOXY100T PO (16:00)
[2025-07-07] MEDS ORDERED: CEFD300CAP PO (16:00)
[2025-07-07] MEDS ORDERED: DOXYCYCLINE HYCLATE 100 MG TABLET PO SCH (21:00)
[2025-07-07] MEDS ORDERED: CEFDINIR 300 MG CAP PO SCH (21:00)
== END 2025-07-07 18:32 | DRG 871 ==
LOC: EDBD 10:12 → M ED 10:12 → M ED INP 16:36 → M PCU 23:52
PROVIDERS: ADMIT Internal Medicine; ATTEND Internal Medicine
PROC: B246ZZZ Ultrasonography of Right and Left Heart (ICD-10-PCS; principal; 2025-07-04)
DX: A41.9 Sepsis, unspecified organism (principal); J18.9 Pneumonia, unspecified organism; I63.9 Cerebral infarction, unspecified; Z86.73 Personal history of transient ischemic attack (TIA), and cerebral infarction without residual deficits; I25.10 Atherosclerotic heart disease of native coronary artery without angina pectoris; E03.9 Hypothyroidism, unspecified; G62.9 Polyneuropathy, unspecified; J45.909 Unspecified asthma, uncomplicated; I25.2 Old myocardial infarction; K27.9 Peptic ulcer, site unspecified, unspecified as acute or chronic, without hemorrhage or perforation; K21.9 Gastro-esophageal reflux disease without esophagitis; D50.9 Iron deficiency anemia, unspecified; N32.81 Overactive bladder; Z90.79 Acquired absence of other genital organ(s); Z96.652 Presence of left artificial knee joint; Z90.49 Acquired absence of other specified parts of digestive tract; S00.93XA Contusion of unspecified part of head, initial encounter; W06.XXXA Fall from bed, initial encounter; Y92.122 Bedroom in nursing home as the place of occurrence of the external cause; F32.A Depression, unspecified; M35.3 Polymyalgia rheumatica; K22.2 Esophageal obstruction; R13.10 Dysphagia, unspecified; R29.6 Repeated falls; R09.02 Hypoxemia; E87.6 Hypokalemia; E83.42 Hypomagnesemia; K59.00 Constipation, unspecified; Z79.890 Hormone replacement therapy; Z79.899 Other long term (current) drug therapy; Z88.0 Allergy status to penicillin; Z88.2 Allergy status to sulfonamides; Z88.1 Allergy status to other antibiotic agents; Z88.8 Allergy status to other drugs, medicaments and biological substances

== ENCOUNTER → 2025-07-03 | Outpatient (REF) | payer MEDICARE, MEDICAID ==
[~2025-07-03] MED LIST changes: +ALBU2.5V10 INH; +AZEL1SPR3 NARES; -BENA2CRE3 EXT; +BENA2CRE3 TOP; +DICL20GE TOP; +FLUT15.820; +OMEP40CA5 PO; +PRES10CA2 PO; +SLOW1TAB3 PO
== END ==
PROVIDERS: ATTEND Family Medicine
DX: J06.9 Acute upper respiratory infection, unspecified (principal); Z53.8 Procedure and treatment not carried out for other reasons

== ENCOUNTER 2025-07-07 16:02 | Inpatient (IN) | payer MEDICARE, MEDICAID ==
[~2025-07-07] VITALS: Ht 152.4 cm; Wt 61.3 kg
[2025-07-07] MEDS ORDERED: DOCUSATE SODIUM 100 MG CAPSULE PO PRN (16:50)
[2025-07-07] MEDS ORDERED: SODIUM CHLORIDE NASAL 0.65% SPRAY BTL (OCEAN) PRN (16:50)
[2025-07-07] MEDS ORDERED: MOM 30 ML SUSPENSION UDC PO PRN (16:55)
[2025-07-07] MEDS ORDERED: BISACODYL 10 MG SUPP PR PRN (16:55)
[2025-07-07] MEDS ORDERED: MAALOX 30 ML SUSP *UDC PO PRN (16:55)
[2025-07-07] MEDS ORDERED: SIMETHICONE 80MG CHEW TAB PO PRN (16:55)
[2025-07-07] MEDS ORDERED: ONDANSETRON 4MG ORAL DISINTEGRATING TAB PO PRN (16:55)
[2025-07-07] MEDS ORDERED: BISACODYL 5 MG TAB PO PRN (16:55)
[2025-07-07 18:35] VITALS: BP 140/66; TEMP 98.6; O2SAT 95
[2025-07-07 20:00] VITALS: BP 147/69; TEMP 99; O2SAT 96
[2025-07-07] MEDS: DOXYCYCLINE HYCLATE 100 MG TABLET PO SCH (21:25)
[2025-07-07] MEDS: FAMOTIDINE 20 MG TAB PO SCH (21:26)
[2025-07-07] MEDS: ATORVASTATIN 20 MG TAB PO SCH (21:26)
[2025-07-07] MEDS: CALCIUM/VITAMIN D 500 MG TAB PO SCH (21:26)
[2025-07-07] MEDS: CEFDINIR 300 MG CAP PO SCH (21:26)
[2025-07-07] MEDS: AZELASTINE 137 MCG NASAL SPY 30 ML SCH (21:27)
[2025-07-07] MEDS: SENNA 8.6 MG TAB PO SCH (21:32)
[2025-07-07] MEDS: SUCRALFATE 1 GM TAB PO SCH (21:33)
[2025-07-07] MEDS: GABAPENTIN 400 MG CAP PO SCH (21:33)
[2025-07-07] MEDS: MAGNESIUM OXIDE 400 MG TAB PO SCH (21:34)
[2025-07-07] MEDS: DOCUSATE SODIUM 100 MG CAPSULE PO SCH (21:34)
[2025-07-07] MEDS: NORTRIPTYLINE 25 MG CAP PO SCH (21:35)
[2025-07-07] MEDS: MONTELUKAST 10 MG TAB PO SCH (21:35)
[2025-07-07] MEDS: FLUTICASONE PROPIONATE 0.05% NASAL SPRAY 16 GM NARES SCH (21:36)
[2025-07-07] MEDS: PHENYTOIN ER 100 MG CAP PO SCH (21:37)
[2025-07-08 04:00] VITALS: BP 132/77; TEMP 98.5; O2SAT 91
[2025-07-08] MEDS: LEVOTHYROXINE 112 MCG TABLET (0.112 MG) PO SCH (06:06)
[2025-07-08 06:27] LABS: BASO # 0.1 10^3/uL (0.0-0.2); BASO % 0.5 % (0.0-1.0); EOS # 0.3 10^3/uL (0.0-0.5); EOS % 3.0 % (0.0-3.0); LYMPH # 1.1 10^3/uL (1.5-5.0); LYMPH % 11.8 % (24.0-44.0); MONO # 1.0 10^3/uL (0.0-0.8); MONO % 11.2 % (2.0-8.0); NEUTROPHILS # 6.6 10^3/uL (1.5-8.5); NEUTROPHILS % 72.2 % (36.0-66.0); PLATELET COUNT, AUTOMATED 240 10^3/uL (150-450)
[2025-07-08 06:50] LABS: ALT/SGPT 21.0 U/L (7.0-40); AST/SGOT 23.0 U/L (<34); CALCIUM LEVEL 8.7 MG/DL (8.3-10.6); CARBON DIOXIDE LEVEL 26.0 MMOL/L (20-31); CHLORIDE LEVEL 103.0 MMOL/L (98-107); CREATININE FOR GFR 0.83 MG/DL (0.55-1.30); GLOMERULAR FILTRATION RATE 68.2 (>32); POTASSIUM SERUM 3.9 MMOL/L (3.5-5.1); SODIUM LEVEL 138.0 MMOL/L (136-145)
[2025-07-08] MEDS: ASPIRIN 81 MG ENTERIC TABLET PO SCH (09:12)
[2025-07-08] MEDS: OMEPRAZOLE 20MG CAP PO SCH (09:13)
[2025-07-08] MEDS: ENOXAPARIN 40 MG/0.4 ML SYRINGE (J1650 PER 10MG) SC SCH (09:14)
[2025-07-08] MEDS: ACETAMINOPHEN 650 MG ER TAB PO PRN (11:10)
[2025-07-08 12:00] VITALS: BP 96/61; TEMP 98.8; O2SAT 94
[2025-07-08] MEDS: CLOPIDOGREL 75 MG TAB PO SCH (12:13)
[2025-07-08 20:00] VITALS: TEMP 98.8; O2SAT 94
[2025-07-08] MEDS: guaiFENesin ER TABLET 600 MG TAB PO PRN (21:16)
[2025-07-09 04:00] VITALS: BP 118/60; TEMP 98.6; O2SAT 91
[2025-07-09 07:42] LABS: BASO # 0.1 10^3/uL (0.0-0.2); BASO % 0.6 % (0.0-1.0); EOS # 0.3 10^3/uL (0.0-0.5); EOS % 3.0 % (0.0-3.0); LYMPH # 1.2 10^3/uL (1.5-5.0); LYMPH % 11.5 % (24.0-44.0); MONO # 1.1 10^3/uL (0.0-0.8); MONO % 10.9 % (2.0-8.0); NEUTROPHILS # 7.4 10^3/uL (1.5-8.5); NEUTROPHILS % 72.7 % (36.0-66.0); PLATELET COUNT, AUTOMATED 284 10^3/uL (150-450)
[2025-07-09 08:11] LABS: FREE T4 1.29 NG/DL (0.89-1.76)
[2025-07-09 08:21] LABS: C REACTIVE PROTEIN QUANTITATIV 16.72 MG/DL (<1.0)
[2025-07-09 12:00] VITALS: BP 112/55; TEMP 97.9; O2SAT 99
[2025-07-09 20:00] VITALS: BP 113/56; TEMP 98.8; O2SAT 96
[2025-07-10 04:00] VITALS: BP 114/55; TEMP 98; O2SAT 92
[2025-07-10 06:25] LABS: PLATELET COUNT, AUTOMATED 246 10^3/uL (150-450)
[2025-07-10 08:54] LABS: PLATELET COUNT, AUTOMATED 319 10^3/uL (150-450)
[2025-07-10 09:14] LABS: CALCIUM LEVEL 8.7 MG/DL (8.3-10.6); CARBON DIOXIDE LEVEL 26.0 MMOL/L (20-31); CHLORIDE LEVEL 103.0 MMOL/L (98-107); CREATININE FOR GFR 1.01 MG/DL (0.55-1.30); GLOMERULAR FILTRATION RATE 53.9 (>32); POTASSIUM SERUM 4.3 MMOL/L (3.5-5.1); SODIUM LEVEL 137.0 MMOL/L (136-145)
[2025-07-10 12:00] VITALS: BP 97/61; TEMP 97.6; O2SAT 97
[2025-07-10 20:00] VITALS: BP 103/65; TEMP 98.2; O2SAT 95
[2025-07-11 04:00] VITALS: BP 95/51; TEMP 98.5; O2SAT 93
[2025-07-11] MEDS: ALBUTEROL SULFATE 2.5 MG/0.5 ML INH CONCENTRATE NEB SOLN INH PRN (09:12)
[2025-07-11 12:00] VITALS: BP 113/58; TEMP 97.6; O2SAT 95
[2025-07-11 20:43] VITALS: BP 140/69; TEMP 98.4; O2SAT 95
[2025-07-12 03:42] VITALS: BP 128/61; TEMP 98.6; O2SAT 95
[2025-07-12] MEDS: ALBUTEROL SULFATE 2.5 MG/0.5 ML INH CONCENTRATE NEB SOLN NEB SCH (08:00)
[2025-07-12 12:00] VITALS: BP 128/65; TEMP 98.1; O2SAT 98
[2025-07-12 20:00] VITALS: BP 113/57; TEMP 98.1; O2SAT 99
[2025-07-13 04:00] VITALS: BP 114/60; TEMP 97.7; O2SAT 91
[2025-07-13 07:28] LABS: PLATELET COUNT, AUTOMATED 294 10^3/uL (150-450)
[2025-07-13 12:00] VITALS: BP 132/76; TEMP 97.4; O2SAT 95
[2025-07-13 20:00] VITALS: BP 130/67; TEMP 97.9; O2SAT 95
[2025-07-14 04:00] VITALS: BP 119/68; TEMP 97.3; O2SAT 95
[2025-07-14 12:00] VITALS: BP 116/62; TEMP 98.5; O2SAT 95
[2025-07-14 20:00] VITALS: BP 108/54; TEMP 98.4; O2SAT 95
[2025-07-15 04:00] VITALS: BP 117/62; TEMP 97.4; O2SAT 100
[2025-07-15 12:00] VITALS: BP 115/57; TEMP 97.6; O2SAT 99
[2025-07-15] MEDS ORDERED: ATOR1TAB21 PO (16:11)
[2025-07-15] MEDS ORDERED: ASPI81TAEC PO (16:11)
[2025-07-15 20:00] VITALS: BP 114/65; TEMP 98.5; O2SAT 98
[2025-07-16 03:37] VITALS: BP 138/75; TEMP 98.1; O2SAT 91
[2025-07-16 06:02] LABS: PLATELET COUNT, AUTOMATED 374 10^3/uL (150-450)
== END 2025-07-16 11:30 | disposition home health service (06) | DRG 64 ==
LOC: M PM&R 18:35
PROVIDERS: ADMIT Physical Medicine & Rehabilitation; ATTEND Physical Medicine & Rehabilitation
DX: I63.9 Cerebral infarction, unspecified (principal); J18.9 Pneumonia, unspecified organism; I25.10 Atherosclerotic heart disease of native coronary artery without angina pectoris; E03.9 Hypothyroidism, unspecified; G62.9 Polyneuropathy, unspecified; J45.909 Unspecified asthma, uncomplicated; R29.6 Repeated falls; M35.3 Polymyalgia rheumatica; Z74.1 Need for assistance with personal care; Z74.09 Other reduced mobility; N32.81 Overactive bladder; K22.9 Disease of esophagus, unspecified; S93.402D Sprain of unspecified ligament of left ankle, subsequent encounter; Z96.652 Presence of left artificial knee joint; K27.9 Peptic ulcer, site unspecified, unspecified as acute or chronic, without hemorrhage or perforation; R13.10 Dysphagia, unspecified; F32.A Depression, unspecified; K59.00 Constipation, unspecified; R59.0 Localized enlarged lymph nodes; R53.83 Other fatigue; S00.93XD Contusion of unspecified part of head, subsequent encounter; H53.9 Unspecified visual disturbance; Z90.79 Acquired absence of other genital organ(s); Z90.49 Acquired absence of other specified parts of digestive tract; Z79.82 Long term (current) use of aspirin; Z79.2 Long term (current) use of antibiotics; Z79.890 Hormone replacement therapy; Z79.52 Long term (current) use of systemic steroids; Z79.899 Other long term (current) drug therapy; Z88.2 Allergy status to sulfonamides; Z88.1 Allergy status to other antibiotic agents; Z88.8 Allergy status to other drugs, medicaments and biological substances; Z91.048 Other nonmedicinal substance allergy status

== ENCOUNTER → 2025-07-07 | Outpatient (REF) | payer MEDICARE, MEDICAID ==
[~2025-07-07] MED LIST changes: +ALBU2.5V10 INH; +ASPI81TAEC PO; +AZEL1SPR3 NARES; +CEFD300CAP PO; +DICL20GE TOP; +FLUT15.820; +OMEP40CA5 PO; +PRES10CA2 PO; +SLOW1TAB3 PO
== END ==
PROVIDERS: ATTEND Internal Medicine Rheumatology
DX: M35.3 Polymyalgia rheumatica (principal); R79.82 Elevated C-reactive protein (CRP); M25.50 Pain in unspecified joint; H04.123 Dry eye syndrome of bilateral lacrimal glands; Z79.52 Long term (current) use of systemic steroids; Z53.8 Procedure and treatment not carried out for other reasons